=== PATIENT | male | born 1950 | race Caucasian/White ===

== ENCOUNTER 2019-10-03 00:19 | Outpatient (CLI) | payer MEDICARE, SELFPAY ==
[2019-10-03 18:39] LABS: SARS-CoV-2 RNA PCR Negative
== END 2019-10-03 00:20 | disposition home or self-care (01) ==
LOC: ANHCOVIDDT 00:20
PROVIDERS: Visit Provider Internal Medicine Gastroenterology
DX: Z01.818 Encounter for other preprocedural examination (principal); Z11.59 Encounter for screening for other viral diseases
CPT/HCPCS: 87635; C9803; U0003

== ENCOUNTER 2019-10-05 00:44 | Day surgery (SDC) | payer MEDICARE, SELFPAY ==
[2019-10-02 09:32] VITALS: BMI 49.6
[2019-10-05 06:51] VITALS: BP 129/72; PULSE 77; RESP 16; TEMP 36.9; O2SAT 94
[2019-10-05] MEDS: LACTATED RINGERS 1,000 ML 150 ML IV CONT (07:17)
[2019-10-05 07:19] LABS: Glucose Point of Care 160 (65-105)
--- NOTE | 2019-10-05 07:51 | WPDGIPROGNO ---
Subjective Date/time seen: 10/05/19 07:51 Objective Data Vital Signs Vital Signs: Vital Signs - 24 hr 10/05/19 06:51 Temperature 36.9 C Pulse Rate 77 Respiratory Rate 16 Blood Pressure 129/72 Pulse Oximetry 94 Meds/Results Medications: Active Medications Generic Name Dose Route Start Last Admin Trade Name Freq PRN Reason Stop Dose Admin Lactated Ringer's 1,000 mls @ 150 mls/hr 10/04/19 13:05 10/05/19 07:17 Lr - Lactated Ringers Iv IV CONT 150 mls/hr .[id number] BRENT Administration Lidocaine HCl 0.3 ml 10/04/19 13:05 Xylocaine 2% Local Inj INTRADERM ONCE PRN to numb area Labs Labs: Laboratory Results - last 24 hr 10/05/19 07:08 POC Capillary Glucose 160 H
--- NOTE | 2019-10-05 07:52 | PM.IMHP ---
H&P: HPI History of Present Illness Chief complaint: Other Fecal Abnormalities Narrative: Reason for visit colonoscopy. Is a very pleasant gentleman seen in consultation at the request of the primary physician. Patient examined . Impression: Positive stool base DNA test. History of colon polyps. Morbid obesity. Atrial fibrillation status post pacemaker placement. HTN. HLD. DM. Neuropathy. Recommendation: This very pleasant gentleman's being evaluated for a positive stool base DNA test. Patient has remote history of colon polyps. He was having complaints of occasional constipation. Patient's GI review systems unremarkable. Follow-up patient does complain occasional shortness of breath, dyspnea is urgent and wheezing. He has. Cc is the lower extremities. General: very pleasant patient in no acute distress. HEENT: Head was normocephalic sclerae is clear mouth without masses neck was supple. Heart: Rate rhythm regular without S3 or S4. Lungs: CTA. Abdomen: Soft with no guarding or rigidity. Bowel sounds were active. Neurologic: Cranial nerves 2 through 12 intact. No focal defects. No clonus. Musculoskeletal system: Revealed no joint tenderness or swelling no muscle atrophy. Extremities: Reveal no significant edema. Skin: Warm and dry with normal turgor. Mental status: intact. Patient is alert and oriented. Review of Systems Review of Systems: All systems reviewed & are unremarkable except as noted in HPI and below PMFSH Past Medical History Medical History (Updated 10/05/19 @ 07:52 by Gab Saab MD) CAD (coronary artery disease) Diabetes Hyperlipidemia Hypertension Pacemaker Super obesity Meds Home Medications and Allergies Home Medications Medication Instructions Recorded Confirmed Type albuterol sulfate [ProAir 1 inh INHALATION PRN PRN 10/02/19 10/02/19 History RespiClick] furosemide 40 mg PO DAILY 10/02/19 10/02/19 History glimepiride 4 mg PO DAILY 10/02/19 10/02/19 History lisinopril 10 mg PO DAILY 10/02/19 10/02/19 History rivaroxaban [Xarelto] 20 mg PO HS 10/02/19 10/05/19 History rosuvastatin 10 mg PO DAILY 10/02/19 10/02/19 History sitagliptin-metformin [Janumet] 1 tablet PO BID 10/02/19 10/02/19 History spironolactone 50 mg PO DAILY 10/02/19 10/02/19 History clobetasol 1 applic TOPICAL DAILY 10/05/19 10/05/19 History Allergies Allergy/AdvReac Type Severity Reaction Status Date / Time clindamycin Allergy Intermediate Rash Verified 10/02/19 09:17 dabigatran etexilate Allergy Unknown Unknown Verified 10/02/19 09:17 acetaminophen [From Percocet] Allergy Rash Verified 10/05/19 07:02 doxycycline Allergy Rash Verified 10/05/19 07:02 meperidine [From Demerol] Allergy Rash Verified 10/05/19 06:57 neomycin Allergy Rash Verified 10/05/19 07:02 oxycodone [From Percocet] Allergy Rash Verified 10/05/19 07:02 polymyxin B Allergy Rash Verified 10/05/19 07:02 OXYCODONE HCL Allergy Intermediate RASH Uncoded 10/02/19 09:17 Vital Signs Vital Signs - 24 hr 10/05/19 06:51 Temperature 36.9 C Pulse Rate 77 Respiratory Rate 16 Blood Pressure 129/72 Pulse Oximetry 94
--- NOTE | 2019-10-05 07:52 | WPDANESEPPF ---
Anes - Initial Pre Proc Eval Procedure: Operation Date: 10/05/19 08:00 Proposed Procedures p Colonoscopy - Chip Garg DO Date/Time: 10/05/19 07:52 Surgeon: Chip Garg DO Pre Op Diagnosis: Other Fecal Abnormalities Patient Data Age: 69 Gender: M Height: 6 ft 3 in Weight: 185.8 kg Last Vital Signs Temp 98.5 F 10/05/19 06:51 Pulse 77 10/05/19 06:51 Resp 16 10/05/19 06:51 BP 129/72 10/05/19 06:51 Pulse Ox 94 10/05/19 06:51 Allergies Allergy/AdvReac Type Severity Reaction Status Date / Time clindamycin Allergy Intermediate Rash Verified 10/02/19 09:17 dabigatran etexilate Allergy Unknown Unknown Verified 10/02/19 09:17 acetaminophen [From Percocet] Allergy Rash Verified 10/05/19 07:02 doxycycline Allergy Rash Verified 10/05/19 07:02 meperidine [From Demerol] Allergy Rash Verified 10/05/19 06:57 neomycin Allergy Rash Verified 10/05/19 07:02 oxycodone [From Percocet] Allergy Rash Verified 10/05/19 07:02 polymyxin B Allergy Rash Verified 10/05/19 07:02 OXYCODONE HCL Allergy Intermediate RASH Uncoded 10/02/19 09:17 Home Medications Medication Instructions Recorded Confirmed Type albuterol sulfate [ProAir 1 inh INHALATION PRN PRN 10/02/19 10/02/19 History RespiClick] furosemide 40 mg PO DAILY 10/02/19 10/02/19 History glimepiride 4 mg PO DAILY 10/02/19 10/02/19 History lisinopril 10 mg PO DAILY 10/02/19 10/02/19 History rivaroxaban [Xarelto] 20 mg PO HS 10/02/19 10/05/19 History rosuvastatin 10 mg PO DAILY 10/02/19 10/02/19 History sitagliptin-metformin [Janumet] 1 tablet PO BID 10/02/19 10/02/19 History spironolactone 50 mg PO DAILY 10/02/19 10/02/19 History clobetasol 1 applic TOPICAL DAILY 10/05/19 10/05/19 History Laboratory Tests 10/05/19 07:08 POC Capillary Glucose 160 mg/dl H mg/dl (65-105) Patient hx anesthesia problems: none Family hx anesthesia problems: none PMFSH Past Medical History Medical History (Updated 10/05/19 @ 07:52 by Gab Saab MD) CAD (coronary artery disease) Diabetes Hyperlipidemia Hypertension Pacemaker Super obesity Anes - Eval Final PreProcedure Day of Procedure 10/05/19 07:52 Patient weight: super morbidly obese Heart: regular rate and rhythm Lungs: clear to auscultation Airway: Mallampati scale class III Neurological: alert and oriented Last oral intake: >/= 8 hours ASA classification: IV Emergent: no Anesthetic plan: proceed Anesthesia type and monitoring: general GIVS and standard monitoring Informed Consent: The patient's anesthetic plan and its attendant risks and benefits were discussed with the patient/family/POA. Questions were solicited and answers provided to the satisfaction of the patient/family/POA.
[2019-10-05 08:40] VITALS: BP 121/70; PULSE 76; RESP 22; O2SAT 96
--- NOTE | 2019-10-05 08:42 | SUR.OPER ---
RESOLUTION CLIP X4: LOT # [id number] X3, EXPIRATION 2022-06-04, LOT # [id number] X1, EXPIRATION 2022-06-05
[2019-10-05 08:50] VITALS: BP 112/64; PULSE 75; RESP 22; O2SAT 90
[2019-10-05 09:00] VITALS: BP 123/66; PULSE 82; RESP 20; O2SAT 92
== END 2019-10-05 09:19 | disposition home or self-care (01) ==
PROVIDERS: Visit Provider Internal Medicine Gastroenterology
PROC: 0DJD8ZZ Inspection of Lower Intestinal Tract, Via Natural or Artificial Opening Endoscopic (ICD-10-PCS; CPT 45378; principal; 2019-10-05 08:00)
DX: Z12.11 Encounter for screening for malignant neoplasm of colon (principal); R19.5 Other fecal abnormalities; D12.2 Benign neoplasm of ascending colon; D12.0 Benign neoplasm of cecum; I10 Essential (primary) hypertension; E78.5 Hyperlipidemia, unspecified; I25.10 Atherosclerotic heart disease of native coronary artery without angina pectoris; Z95.0 Presence of cardiac pacemaker; Z79.01 Long term (current) use of anticoagulants; E66.01 Morbid (severe) obesity due to excess calories; Z68.43 Body mass index [BMI] 50.0-59.9, adult
CPT/HCPCS: 45385; 88305; J2704; J7120

== ENCOUNTER 2019-10-13 10:09 | Observation (INO) | payer MEDICARE, SELFPAY ==
[2019-10-13] VITALS (9 sets, daily range): BP systolic 110–151; BP diastolic 64–99; PULSE 76–91; RESP 16–25; TEMP 35.8–36.8; O2SAT 93–100
--- NOTE | 2019-10-13 11:34 | ED.GIBLEED ---
HPI - GI Bleed General Chief complaint: GI Bleed Stated complaint: rectal bleeding after colonoscopy Time Seen by Provider: 10/13/19 11:16 Source: patient Mode of arrival: ambulatory Limitations: no limitations History of Present Illness HPI Narrative: This patient is a 69 year old male with history of afib, pacemaker on Xarelto who presents for evaluation of rectal bleeding s/p colonoscopy. Patient had a colonoscopy performed [address] Garg, and he states 3 polyps were removed at that time. He had restarted his Xarelto but he has not taken any since Wednesday night. Yesterday morning he states he noticed a small amount of blood when he wiped. Later in the day he noticed significantly more bright red blood and passing clots. This morning at 630 am he states he had urged to defecated and he passed a large clots. He has not had any more rectal bleeding since. He denies abdominal pain, chest pain, nausea or vomitng. Related Data Home Medications Medication Instructions Recorded Confirmed albuterol sulfate [ProAir 1 inh INHALATION PRN PRN 10/02/19 10/13/19 RespiClick] furosemide 40 mg PO DAILY 10/02/19 10/13/19 glimepiride 4 mg PO DAILY 10/02/19 10/13/19 lisinopril 10 mg PO DAILY 10/02/19 10/13/19 rivaroxaban [Xarelto] 20 mg PO HS 10/02/19 10/13/19 rosuvastatin 10 mg PO DAILY 10/02/19 10/13/19 sitagliptin-metformin [Janumet] 1 tablet PO BID 10/02/19 10/13/19 spironolactone 50 mg PO DAILY 10/02/19 10/13/19 clobetasol 1 applic TOPICAL DAILY 10/05/19 10/13/19 cholecalciferol (vitamin D3) 125 mcg PO DAILY 10/13/19 10/13/19 [Vitamin D3] vitamin B complex [B 1 tablet PO DAILY 10/13/19 10/13/19 Complex-Vitamin B12] Allergies Allergy/AdvReac Type Severity Reaction Status Date / Time clindamycin Allergy Intermediate Rash Verified 10/13/19 13:48 dabigatran etexilate Allergy Unknown Unknown Verified 10/13/19 13:48 acetaminophen [From Percocet] Allergy Rash Verified 10/13/19 13:48 doxycycline Allergy Rash Verified 10/13/19 13:48 meperidine [From Demerol] Allergy Rash Verified 10/13/19 13:48 neomycin Allergy Rash Verified 10/13/19 13:48 oxycodone [From Percocet] Allergy Rash Verified 10/13/19 13:48 polymyxin B Allergy Rash Verified 10/13/19 13:48 OXYCODONE HCL Allergy Intermediate RASH Uncoded 10/02/19 09:17 Review of Systems Review of Systems: All systems reviewed & are unremarkable except as noted in HPI and below Constitutional: Constitutional: Denies chills and Denies weakness ENT: Denies epistaxis Cardiovascular: Cardiovascular: Denies chest pain Respiratory: Respiratory: Reports dyspnea (chronic) Gastrointestinal: Gastrointestinal: Denies abdominal pain, Reports hematochezia, Denies nausea and Denies vomiting PMFSH Past Medical History Medical History (Updated 10/13/19 @ 20:00 by Chandrika Levy MD) Adenomatous colon polyp Ascending colon x3 on colonoscopy 10/05/2019. 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 Degenerative arthritis of knee Yhby-yv-yiln arthritis in both knees. Diabetic peripheral neuropathy Hyperlipidemia Hypertension Paroxysmal atrial fibrillation Status post cardiac ablation and permanent pacemaker insertion. Super obesity Tubulovillous adenoma Cecum on colonoscopy 10/05/2019. Type 2 diabetes mellitus Surgical History Surgical History (Updated 10/13/19 @ 17:18 by Britney Alanis PA-C) History of arthroscopic knee surgery History of cardiac radiofrequency ablation History of carpal tunnel release History of permanent cardiac pacemaker placement Family History Family History Mother Tuberculosis Kidney disease Father Lung cancer Heart attack Sibling Ovarian cancer Malignant neoplasm of prostate Lung cancer Social History Social History (Updated 10/13/19 @ 17:19 by Britney Alanis PA-C) Social History: Surrogate decision m
[2019-10-13 11:38] LABS: Basophils Percent Auto 0.3 % (0.2-1.2); Eosinophils Absolute Auto 0.1 K/mm3 (0-0.3); Eosinophils Percent Auto 0.7 % (0-4.4); Hematocrit 36.5 % (42.0-52.0); Hemoglobin 12.1 g/dL (14.0-18.0); Immature Granulocyte Absolute 0.07 K/mm3 (0.00-0.031); Immature Granulocyte Percent A 0.6 % (0-0.5); Lymphocytes Absolute Auto 1.79 K/mm3 (0.9-3.2); Lymphocytes Percent Auto 14.6 % (18.3-44.2); Mean Corpuscular HGB Conc 33.2 g/dl (32-36); Mean Corpuscular Hemoglobin 32.4 pg (26-34); Mean Corpuscular Volume 97.9 fl (80-100); Mean Platelet Volume 10.5 fl (7.4-10.4); Monocytes Absolute Auto 1.1 K/mm3 (0.1-0.6); Monocytes Percent Auto 8.6 % (2.6-8.5); Neutrophils Absolute Auto 9.3 K/mm3 (1.3-6.7); Neutrophils Percent Auto 75.2 % (45.5-73.1); Platelet Count Result 223 k/mm3 (150-375); Red Blood Count 3.73 M/mm3 (4.6-6.20); Red Cell Distribution Width 12.6 % (11.5-14.5); White Blood Count 12.3 K/mm3 (4.5-10.0)
[2019-10-13 11:48] LABS: INR 1.1; Prothrombin Time 14.3 Seconds (11.1-14.7)
[2019-10-13 11:49] LABS: Partial Thromboplastin Time 25.5 SECONDS (22.3-36.8)
[2019-10-13 11:52] LABS: Alanine Aminotransferase 18 U/L (4-50); Albumin Level 3.9 g/dL (3.5-5.1); Alkaline Phosphatase 50 U/L (38-126); Aspartate Amino Transferase 18 U/L (17-59); Bilirubin,Total 0.5 mg/dL (0.2-1.3); Blood Urea Nitrogen 13 mg/dL (9-20); Calcium 9.4 mg/dL (8.4-10.2); Carbon Dioxide 31 mmol/L (22-30); Chloride 98 mmol/L (98-107); Estimated CRCL calculation 145 ml/min; Estimated Glomerular Filt Rate > 60; Glucose 214 mg/dL (75-110); Potassium 4.2 mmol/L (3.4-5.0); Sodium 135 mmol/L (137-145)
[2019-10-13 13:23] LABS: Hemoglobin 11.8 g/dL (14.0-18.0)
--- NOTE | 2019-10-13 14:54 | ADMGEN ---
This patient, Kimani Leos, was admitted to Medical Room 348-01. Patient/family oriented to hospital policies and general routines including ID bracelet, bed and alarms, visiting hours, pain management, procedures, bathroom and other care routines, personal items, smoking policy, room service/diet, and visiting hours. Valuables list has been completed. Information on how to activate the Rapid Response Team has been discussed. Patient/Family are encouraged to report perceived risks to care and to ask questions if they do not understand what they are told or what they should do.
--- NOTE | 2019-10-13 15:59 | WPDGICN ---
GI Consult Note Consult date/time: 10/13/19 15:59 HPI: This very pleasant gentleman seen in consultation regarding GI bleeding. 69-year-old white male seen in consultation request of the hospitalist with the patient's permission. The patient examined and chart review. Impression: Lower GI bleeding probably secondary to post polypectomy syndrome. Anemia secondary to above. Coagulopathy secondary to Pradaxa. Adenomatous colon polyps. Morbid obesity. Atrial fibrillation status post pacemaker placement. HTN. HLD. DM. Neuropathy. Recommendation: The patient has had no further bleeding since 0 600 this a.m.. I would keep the patient on clear liquids continue to observe. If the patient develops significant bleeding would re-prepped for a repeat colonoscopy for possible therapeutics. Hopefully, this will not be necessary. Follow hemoglobin hematocrit. Hold anticoagulation for 4 to 5 days. History: This very pleasant gentleman is well known to myself. Patient was found to have a positive stool base DNA test. He also had a history of polyps. He underwent elective colonoscopy and was found to have several polyps. The the preparation was somewhat poor. The largest polyp had hemostatic clips placed. Patient was doing fine until approximately the day prior to admission he began having painless rectal bleeding. He denied any nausea, vomiting or hematemesis. He denied any abdominal pain indigestion, dysphagia or odynophagia. Patient presented in the emergency room, but has not had any bleeding since 0 600. The patient is presently comfortable and resting. He wants to go home. Physical examination: General: very pleasant patient in no acute distress. HEENT: Head was normocephalic sclerae is clear mouth without masses neck was supple. Heart: Rate rhythm regular without S3 or S4. Lungs: CTA. Abdomen: Soft with no guarding or rigidity. Bowel sounds were active. The abdomen is obese. Neurologic: Cranial nerves 2 through 12 intact. No focal defects. No clonus. Musculoskeletal system: Revealed no joint tenderness or swelling no muscle atrophy. Extremities: Edema. Skin: Warm and dry with normal turgor. Mental status: intact. Patient is alert and oriented. One and thank you for allowing me to participate in the care of this was the patient. The give any further service to you please NSAIDs to contact me. Review of Systems Review of Systems: All systems reviewed & are unremarkable except as noted in HPI and below [facility] Past Medical History Medical History (Updated 10/13/19 @ 16:06 by Chip Garg DO) Adenomatous colon polyp CAD (coronary artery disease) Diabetes Hyperlipidemia Hypertension Pacemaker Super obesity Surgical History Surgical History (Updated 10/13/19 @ 16:05 by Chip Garg DO) H/O colonoscopy Family History Family History Mother Tuberculosis Kidney disease Father Lung cancer Heart attack Sibling Ovarian cancer Malignant neoplasm of prostate Lung cancer Social History Social History Smoking status: Never smoker Alcohol intake: never Substance use: never Substance use type: does not use Gender identity (if verbalized by the patient): Male Sexual Orientation (if Verbalized by the Patient): Straight or Heterosexual Spiritual care concerns: No Meds Home Medications and Allergies Home Medications Medication Instructions Recorded Confirmed Type albuterol sulfate [ProAir 1 inh INHALATION PRN PRN 10/02/19 10/13/19 History RespiClick] furosemide 40 mg PO DAILY 10/02/19 10/13/19 History glimepiride 4 mg PO DAILY 10/02/19 10/13/19 History lisinopril 10 mg PO DAILY 10/02/19 10/13/19 History rivaroxaban [Xarelto] 20 mg PO HS 10/02/19 10/13/19 History rosuvastatin 10 mg PO DAILY 10/02/19 10/13/19 History sitagliptin-metformin [Raymondt
--- NOTE | 2019-10-13 16:30 | PM.IMHP ---
H&P: HPI History of Present Illness Chief complaint: Rectal bleeding. Narrative: Kimani Leos is a very pleasant 69-year-old male with a medical history significant for paroxysmal atrial fibrillation post cardiac ablation and permanent pacemaker insertion on long-term Xarelto, type 2 diabetes mellitus, hypertension, and hyperlipidemia who presented to the emergency department earlier this morning via private vehicle from home for evaluation of rectal bleeding. He had a colonoscopy on October 05, [address] Garg with polypectomy x4 (pedunculated tubulovillous adenoma of the cecum, 3 adenomatous polyps from the ascending colon). His Xarelto was on hold prior to the colonoscopy and it was resumed last Wednesday. Yesterday morning he admits to straining to have a bowel movement and at that time he noticed a small amount of bright red blood on the toilet tissue. A couple of hours later he developed cramping in the lower abdomen and he notes passing a large amount of bright red blood every 2 to 3 hours thereafter, admixed with dark clots. He did not take his Xarelto yesterday or today due to the rectal bleeding, and thought it would be best to come in for evaluation given continued blood in his stool this morning. He has not had a bowel movement since 07:00 this morning, but he does report tenesmus however has only been passing flatness. He currently has no complaints and specifically denies abdominal pain, epigastric pain, nausea, and vomiting. He denies lightheadedness and dizziness. No palpitations or shortness of breath. Review of Systems Review of Systems: Narrative: Twelve systems were reviewed with pertinent positives and negatives as per HPI. No fever, chills, or sweats. No recent cold or flu symptoms. No chest pain or shortness of breath. He does have chronic dyspnea on exertion which he attributes to being out of shape an overweight. He has yrgo-fb-[id number] arthritis of both knees, but has been told he asked lose 100 pounds in order to have his knees replaced. He has chronic lower leg edema for which he wears compression socks. Except as documented, all other systems were reviewed and are negative. [facility] [place] Past Medical History Medical History (Updated 10/13/19 @ 17:22 by Britney Alanis PA-C) Adenomatous colon polyp Ascending colon x3 on colonoscopy 10/05/2019. 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 Degenerative arthritis of knee Rbpi-bs-ojub arthritis in both knees. Diabetic peripheral neuropathy Hyperlipidemia Hypertension Paroxysmal atrial fibrillation Status post cardiac ablation and permanent pacemaker insertion. Super obesity Tubulovillous adenoma Cecum on colonoscopy 10/05/2019. Type 2 diabetes mellitus Surgical History Surgical History (Updated 10/13/19 @ 17:18 by Britney Alanis PA-C) History of arthroscopic knee surgery History of cardiac radiofrequency ablation History of carpal tunnel release History of permanent cardiac pacemaker placement Family History Family History Mother Tuberculosis Kidney disease Father Lung cancer Heart attack Sibling Ovarian cancer Malignant neoplasm of prostate Lung cancer Social History Social History (Updated 10/13/19 @ 17:19 by Britney Alanis PA-C) Social History: Surrogate decision maker: Colleen Leos, . Code status: Full code. Smoking status: Never smoker Alcohol intake: never Substance use: never Additional living arrangements comments: Patient lives with his in [place]. They have 3 [place] terriers. Additional occupation/education comments: Technically retired however he still works in [employer]. Sexual Orientation (if Verbalized by the Patient): Straight or Heterosexual Spiritual care concerns: No Meds Home Medications and Allergies Home Medications Medication Instructions Recorded Confirmed
[2019-10-13 17:04] LABS: Glucose Point of Care 177 (65-105)
[2019-10-13 17:11] LABS: Hematocrit 33.7 % (42.0-52.0); Mean Corpuscular HGB Conc 32.6 g/dl (32-36); Mean Corpuscular Hemoglobin 31.6 pg (26-34); Mean Corpuscular Volume 96.8 fl (80-100); Mean Platelet Volume 10.4 fl (7.4-10.4); Platelet Count Result 220 k/mm3 (150-375); Red Blood Count 3.48 M/mm3 (4.6-6.20); Red Cell Distribution Width 12.5 % (11.5-14.5); White Blood Count 10.6 K/mm3 (4.5-10.0)
[2019-10-13 17:22] LABS: Cholesterol 132 mg/dL (0-200); HDL Direct 31 mg/dL; Triglycerides 165 mg/dL (<150)
[2019-10-13 17:23] LABS: INR 1.2; Prothrombin Time 14.7 Seconds (11.1-14.7)
[2019-10-13 17:27] LABS: Alanine Aminotransferase 17 U/L (4-50); Albumin Level 3.6 g/dL (3.5-5.1); Alkaline Phosphatase 43 U/L (38-126); Aspartate Amino Transferase 19 U/L (17-59); Bilirubin,Total 0.5 mg/dL (0.2-1.3); Blood Urea Nitrogen 28 mg/dL (9-20); Carbon Dioxide 30 mmol/L (22-30); Chloride 98 mmol/L (98-107); Estimated CRCL calculation 145 ml/min; Estimated Glomerular Filt Rate > 60; Glucose 178 mg/dL (75-110); Magnesium 1.9 mg/dL (1.6-2.3); Potassium 4.1 mmol/L (3.4-5.0); Sodium 135 mmol/L (137-145)
[2019-10-13 17:34] LABS: LDL Cholesterol Direct 77 mg/dL
[2019-10-13 18:01] LABS: Free T4 Free Thyroxine 0.95 ng/mL (0.78-2.19)
[2019-10-13 22:22] LABS: Glucose Point of Care 184 (65-105)
[2019-10-14 01:32] LABS: Hematocrit 34.8 % (42.0-52.0); Hemoglobin 11.5 g/dL (14.0-18.0)
[2019-10-14 06:00] VITALS: BP 110/56; PULSE 79; RESP 18; TEMP 36.2; O2SAT 100
[2019-10-14 06:52] LABS: Hematocrit 35.9 % (42.0-52.0); Hemoglobin 11.5 g/dL (14.0-18.0)
[2019-10-14 07:48] LABS: Glucose Point of Care 220 (65-105)
[2019-10-14] MEDS: ROSUVASTATIN 10 MG TABLET PO (08:00)
[2019-10-14] MEDS: CHOLECALCIFEROL 1,000 UNIT TABLET 5000 UNITS PO (08:00)
[2019-10-14] MEDS: lisinopriL 10 MG TABLET PO (08:00)
[2019-10-14] MEDS: VITAMIN B COMPLEX CAPSULE 1 CAP PO (08:00)
[2019-10-14] MEDS: GLIMEPIRIDE 2 MG TABLET 4 MG PO (08:00)
[2019-10-14] MEDS: SPIRONOLACTONE 50 MG TABLET PO (08:00)
[2019-10-14] MEDS: INSULIN ASPART (*BKC) 100 UNITS/ML SUB-Q (08:01)
[2019-10-14] MEDS: FUROSEMIDE 40 MG TABLET PO (08:01)
[2019-10-14 11:27] LABS: Glucose Point of Care 199 (65-105)
--- NOTE | 2019-10-14 12:15 | PM.DS ---
DS: Admitting Diagnosis Admitting Diagnosis Admitting Diagnosis: Gastrointestinal hemorrhage, unspecified DS: Discharge Diagnosis Discharge Diagnosis (1) Lower GI bleeding: Code(s): K92.2 - Gastrointestinal hemorrhage, unspecified Status: Acute Assessment and Plan: Four polyps were removed on recent colonoscopy, which also noted internal hemorrhoidal tissue. May be related to recent polypectomy and/or straining to have a bowel movement The patient denies any more bright red blood in his stool at this time. This morning he did have a large stool that was dark in color. H&H has been completely stable, on arrival hemoglobin was 12.1 and this morning it was 11.5. Dr. Garg GI specialist who performed the patient's colonoscopy evaluated the patient yesterday and recommended continuing to observe the patient and slowly advance his diet as tolerated. He stated if significant bleeding continues he would repeat the colonoscopy. I called Dr. Garg about the patient today who recommend checking the patient's H&H again this afternoon and if it still remains stable and the patient is adamant about being discharged that he can follow-up in the office next week. Patient H&H was checked at 1:30 p.m. and was stable at 11.1/34.7%. Patient at this time is stable, asymptomatic, and would like to be discharged home. Informed the patient he needs to hold his Xarelto for 5 more days, and restarted on 10/20/2019. Return to ER warnings given. The patient understands and agrees with the plan all questions answered. (2) Anemia: Code(s): D64.9 - Anemia, unspecified Status: Acute Assessment and Plan: Presumably acute blood loss anemia from rectal bleeding as detailed above. (3) Current use of nursing home anticoagulation: Code(s): Z79.01 - longterm (current) use of anticoagulants Status: Acute Assessment and Plan: He is on Xarelto, which is currently on hold in light of rectal bleeding. (4) Paroxysmal atrial fibrillation: Code(s): I48.0 - Paroxysmal atrial fibrillation Status: Acute Assessment and Plan: Status post cardiac ablation and permanent pacemaker insertion. He is still on Xarelto for stroke prophylaxis, which is currently on hold. (5) Type 2 diabetes mellitus: Code(s): E11.9 - Type 2 diabetes mellitus without complications Status: Acute Assessment and Plan: Oral agents will be reviewed and resumed as appropriate. (6) Hypertension: Code(s): I10 - Essential (primary) hypertension Status: Acute Assessment and Plan: Blood pressures were reviewed and they are well controlled. Continue his home medications. DS: Summary Hospital Course Reason for hospitalization: Patient is a 69-year-old man with a history of atrial fibrillation, and on chronic anticoagulation, who recently underwent a colonoscopy by Dr. Garg and had 4 colon polyps removed and was found to have an internal hemorrhoid, who presented to the emergency room with bright red blood in his stool. Patient had his colonoscopy on 10/05/2019, and was told to restart his Xarelto on 10/07/2019. Then on 10/11/2019, he was straining to have a bowel movement and when he wiped he noticed some bright red blood present on the toilet paper. He woke up on 10/12/2019 and reported having multiple bowel movements with a large amount of bright red blood present. The patient held his Xarelto and decided to come to the emergency room. Patient's initial vitals showed temperature of 97.7?, blood pressure 110/78, heart rate 80, respiratory rate 18, oxygen saturation 96% on room air
[2019-10-14 13:39] LABS: Basophils Percent Auto 0.3 % (0.2-1.2); Eosinophils Absolute Auto 0.1 K/mm3 (0-0.3); Eosinophils Percent Auto 1.1 % (0-4.4); Hematocrit 34.7 % (42.0-52.0); Hemoglobin 11.1 g/dL (14.0-18.0); Immature Granulocyte Absolute 0.07 K/mm3 (0.00-0.031); Immature Granulocyte Percent A 0.7 % (0-0.5); Lymphocytes Absolute Auto 1.66 K/mm3 (0.9-3.2); Lymphocytes Percent Auto 16.4 % (18.3-44.2); Mean Corpuscular Hemoglobin 31.6 pg (26-34); Mean Corpuscular Volume 98.9 fl (80-100); Mean Platelet Volume 10.6 fl (7.4-10.4); Monocytes Absolute Auto 1.1 K/mm3 (0.1-0.6); Monocytes Percent Auto 10.7 % (2.6-8.5); Neutrophils Absolute Auto 7.2 K/mm3 (1.3-6.7); Neutrophils Percent Auto 70.8 % (45.5-73.1); Platelet Count Result 234 k/mm3 (150-375); Red Blood Count 3.51 M/mm3 (4.6-6.20); Red Cell Distribution Width 12.8 % (11.5-14.5); White Blood Count 10.1 K/mm3 (4.5-10.0)
[2019-10-14 14:00] VITALS: BP 103/49; PULSE 72; RESP 18; TEMP 36.2; O2SAT 99
== END 2019-10-14 15:05 | disposition home or self-care (01) ==
LOC: ANHED 12:55 → ANH3MED 13:12
PROVIDERS: Internal Medicine Gastroenterology; Admitting Provider Family Medicine; Emergency Provider General Practice; PCP Internal Medicine; Visit Provider Physician Assistant
DX: K92.2 Gastrointestinal hemorrhage, unspecified (principal); Z86.010 Personal history of colon polyps; K64.8 Other hemorrhoids; D64.9 Anemia, unspecified; I48.0 Paroxysmal atrial fibrillation; E11.42 Type 2 diabetes mellitus with diabetic polyneuropathy; I10 Essential (primary) hypertension; E78.5 Hyperlipidemia, unspecified; I25.10 Atherosclerotic heart disease of native coronary artery without angina pectoris; E66.01 Morbid (severe) obesity due to excess calories; M17.0 Bilateral primary osteoarthritis of knee; Z79.01 Long term (current) use of anticoagulants; Z95.0 Presence of cardiac pacemaker; Z98.890 Other specified postprocedural states
CPT/HCPCS: 36415; 80048; 80053; 80061; 80076; 83735; 84100; 84439; 85014; 85018; 85025; 85027; 85610; 85730; 86850; 86900; 86901; 99285; A9270; G0378; J1815

== ENCOUNTER 2020-04-03 10:39 | Inpatient (IN) | payer MEDICARE, SELFPAY ==
[2020-04-03] VITALS (48 sets, daily range): BP systolic 65–111; BP diastolic 33–70; PULSE 69–850; RESP 14–31; TEMP 35.9–36.8; O2SAT 94–100; BMI 54.0
--- NOTE | ~2020-04-03 | XR_ITS ---
EXAMINATION: XR chest 1V portable DATE: 04/11/2020 06:12 INDICATION: Ventilator TECHNIQUE: frontal view of the chest was obtained. COMPARISON: Chest radiograph dated 04/10/2020 FINDINGS: Endotracheal tube tip 4.0 cm above the russell. Nasogastric tube extends below the left hemidiaphragm with distal tip collimated off the study. Right internal jugular central venous catheter with distal tip at the right brachiocephalic vein. Unchanged elevation of the right hemidiaphragm. Unchanged opacities at the right lower lung zone cons istent with atelectasis and/or pneumonia. Possible very small bilateral pleural effusions. No pneumot horax. Cardiomegaly. Median sternotomy wires and mediastinal surgical clips are seen, likely from flynn or coronary artery bypass grafting. IMPRESSION: 1. Opacities in right lower lung zone along side the elevated right hemidiaphragm most likely atelect asis although differential includes pneumonia. 2. Likely very small bilateral pleural effusions. 3. Cardiomegaly. Reviewed, dictated and finalized at location A. TOR INTERNAL IMPRESSION: 1. Opacities in right lower lung zone along side the elevated right hemidiaphra gm most likely atelectasis although differential includes pneumonia. 2. Likely very small bilateral pleural effusions. 3. Cardiomegaly.
--- NOTE | ~2020-04-03 | US_ITS ---
EXAMINATION: US abdomen duplex complete DATE: 04/04/2020 09:41 INDICATION: Abdominal pain. TECHNIQUE: Multiple ultrasound images of the abdomen were obtained. COMPARISON: CT abdomen and pelvis 04/03/2020 FINDINGS: The abdominal arteries are not visible due to morbid obesity. IMPRESSION: 1. Abnormal arteries not visible. Yesterday's CT demonstrates no significant stenosis of celiac axis, superior mesenteric artery, or inferior mesenteric artery. Reviewed, dictated and finalized at location A. CLERK IMPRESSION: 1. Abnormal arteries not visible. Yesterday's CT demonstrates no significant st enosis of celiac axis, superior mesenteric artery, or inferior mesenteric arter y.
--- NOTE | ~2020-04-03 | XR_ITS ---
EXAMINATION: XR chest 1V portable DATE: 04/12/2020 06:08 INDICATION: Respiratory failure. TECHNIQUE: frontal view of the chest was obtained. COMPARISON: Chest radiograph dated 04/11/2020 FINDINGS: Endotracheal tube tip 6.4 cm above the russell. Nasogastric tube extends below the left hemidiaphragm with distal tip collimated off the study. Right internal jugular central venous catheter with distal tip in the right brachiocephalic vein. Chronic elevation of the right hemidiaphragm. Hazy airspace opacities at both lower lung zones with b lunting at the costophrenic angles consistent with small bilateral pleural effusions. Unchanged more dense patchy and linear airspace opacity in the right lower lung zone consistent with atelectasis wit h differential including pneumonia. No pneumothorax. Cardiomegaly. Single lead cardiac pacemaker with distal tip collimated beyond the inferior margin of the [id number]. IMPRESSION: 1. Unchanged opacity right lower lung zone along side the elevated right hemidiaphragm most likely at electasis although differential includes pneumonia. 2. Small bilateral pleural effusions. 3. Cardiomegaly. 4. Endotracheal tube tip 6.4 cm above the russell. Consider advancement by 4 cm. Reviewed, dictated and finalized at location A. CONSULTANT IMPRESSION: 1. Unchanged opacity right lower lung zone along side the elevated right hemidi aphragm most likely atelectasis although differential includes pneumonia. 2. Small bilateral pleural effusions. 3. Cardiomegaly. 4. Endotracheal tube tip 6.4 cm above the russell. Consider advancement by 4 cm.
--- NOTE | ~2020-04-03 | XR_ITS ---
EXAMINATION: XR abdomen NG/feed tube rechec INDICATION: OG placement TECHNIQUE: Portable AP KUB-NG at 1857 hours COMPARISON: 04/10/2020 FINDINGS: The enteric tube is in the stomach. Cardiomegaly is noted. IMPRESSION: 1. Enteric tube in the stomach. Reviewed, dictated and finalized at location A. TOLOGIC TECHNICIAN TECHNICAL
--- NOTE | ~2020-04-03 | XR_ITS ---
XR chest 1V portable 04/06/2020 05:43 Indication: Respiratory failure Procedure: AP portable chest Comparison: Comparison to multiple prior studies sequentially, with oldest reviewed study dated 05/2010. Findings: Endotracheal tube tip 4.8 cm above the russlel. Right IJ central line tip in the SVC. Cardio megaly. Right perihilar atelectasis. Mild interstitial edema. Small left pleural effusion. Impression: 1: Cardiomegaly with mild interstitial edema. 2: Stable right perihilar atelectasis. Reviewed, dictated and finalized at location A. LE CUTTER Impression: 1: Cardiomegaly with mild interstitial edema. 2: Stable right perihilar atelectasis.
--- NOTE | ~2020-04-03 | XR_ITS ---
EXAMINATION: XR chest 1V portable DATE: 04/08/2020 05:43 INDICATION: Respiratory failure TECHNIQUE: frontal view of the chest was obtained. COMPARISON: Chest radiograph dated 04/07/2020 FINDINGS: Endotracheal tube tip 6.5 cm above the russell. Right internal jugular central venous catheter with di stal tip in the right brachiocephalic vein. Nasogastric tube to at least the distal esophagus with d istal tip collimated off the study. Single lead cardiac pacemaker which extends into the right atrium with the distal tip of the catheter along with the base of the heart also collimated below the infer ior margin of the [id number]. Cardiomegaly. Elevation of the right hemidiaphragm. Gradient of hazy airspace opacities in the bilateral mid and lo wer lung zones. Linear band of discoid atelectasis in the right midlung zone. No pneumothorax. IMPRESSION: 1. Endotracheal tube tip 6.5 cm above the russell. Consider advancement by 3-4 cm. 2. Opacities in the bilateral mid and lower lung zones suggesting small bilateral pleural effusions w ith associated atelectasis and/or pneumonia. Reviewed, dictated and finalized at location A. MACY GRADUATE INTERN IMPRESSION: 1. Endotracheal tube tip 6.5 cm above the russell. Consider advancement by 3-4 c m. 2. Opacities in the bilateral mid and lower lung zones suggesting small bilater al pleural effusions with associated atelectasis and/or pneumonia.
--- NOTE | ~2020-04-03 | XR_ITS ---
EXAMINATION: XR chest 1V portable DATE: 04/09/2020 06:06 INDICATION: Respiratory failure TECHNIQUE: frontal view of the chest was obtained. COMPARISON: Chest radiograph dated 04/08/2020 FINDINGS: Endotracheal tube tip 4.4 cm above the russell. Nasogastric tube extends below the left hemidiaphragm with distal tip collimated off the study. Right internal jugular central venous catheter with distal tip at the brachiocephalic vein. Elevation of the right hemidiaphragm. Decrease in the prior diffuse hazy airspace opacities. Persiste nt dense opacities at the bilateral lung bases with blunting at the costophrenic angles consistent wi th decreasing small bilateral pleural effusions and associated basilar atelectasis and/or pneumonia. When you're discoid atelectasis/scarring in the right midlung zone. Cardiomegaly. IMPRESSION: 1. Decreasing small bilateral pleural effusions. 2. Opacities in the bilateral lower lung zones consistent with decreasing small bilateral pleural eff usions with associated atelectasis and/or pneumonia. Reviewed, dictated and finalized at location A. GLASS DESIGNER IMPRESSION: 1. Decreasing small bilateral pleural effusions. 2. Opacities in the bilateral lower lung zones consistent with decreasing small bilateral pleural effusions with associated atelectasis and/or pneumonia.
--- NOTE | ~2020-04-03 | XR_ITS ---
EXAMINATION: XR abdomen NG/feed tube insert DATE: 04/06/2020 16:15 INDICATION: Orogastric tube placement TECHNIQUE: A supine view of the abdomen and lower chest was obtained for evaluation of feeding tube placement. COMPARISON: None. FINDINGS: Nasogastric tube tip in the body of the stomach. No dilated bowel in the visualized upper abdomen. Op acities at the bilateral lower lung zones suggesting small bilateral pleural effusions with associate d basilar atelectasis and/or pneumonia. Cardiomegaly. IMPRESSION: 1. Orogastric tube tip in the stomach. 2. Small bilateral pleural effusions with associated basilar atelectasis and/or pneumonia. 3. Cardiomegaly. Reviewed, dictated and finalized at location A. STRIAL LABORER
--- NOTE | ~2020-04-03 | XR_ITS ---
EXAMINATION: XR abdomen NG/feed tube insert EXAM DATE: 04/04/2020 06:12 INDICATION: OG tube insertion . TECHNIQUE: Frontal projection(s) of the abdomen for interpretation. There is no prior study for chip fry. FINDINGS: Feeding tube tip and side-port project over expected location of the stomach, adequate. Th ere is bibasilar subsegmental atelectasis. Cardiac pacemaker lead. Nonobstructive upper abdominal bow el gas pattern. IMPRESSION: Feeding tube in position. Reviewed, dictated and finalized at location A. MOLDER IMPRESSION: Feeding tube in position.
--- NOTE | ~2020-04-03 | XR_ITS ---
XR chest 1V portable 04/03/2020 12:12 Indication: Syncope Procedure: AP portable chest Comparison: 08/31/2010 Findings: Elevated right diaphragm which appears chronic. There is chronic linear infiltrate at the r ight mid lung. No acute focal pneumonia, edema or effusion. Cardiomegaly. Pacemaker leads stable. No pneumothorax. Impression: 1: Chronic atelectasis/scarring right mid lung zone. 2: Chronic elevation of the right diaphragm, suspicious for phrenic nerve paralysis. 3: Cardiomegaly. Reviewed, dictated and finalized at location B. RECORDING MACHINE OPERATOR Impression: 1: Chronic atelectasis/scarring right mid lung zone. 2: Chronic elevation of the right diaphragm, suspicious for phrenic nerve para lysis. 3: Cardiomegaly.
--- NOTE | ~2020-04-03 | XR_ITS ---
XR chest 1V portable 04/07/2020 06:11 Indication: Respiratory failure Procedure: AP portable chest Comparison: Comparison to multiple prior studies sequentially, with oldest reviewed study dated 06/2019. Findings: Endotracheal tube tip 3.4 cm above the russell. Diffuse bilateral airspace disease. Right IJ central line tip in the SVC. Right perihilar atelectasis/scarring unchanged. Possible layering effus ions. No pneumothorax. Impression: 1: Persistent diffuse bilateral airspace disease which may represent edema or pneumonia. No significa nt change. Reviewed, dictated and finalized at location A. NALYTICS TEAM LEAD Impression: 1: Persistent diffuse bilateral airspace disease which may represent edema or p neumonia. No significant change.
--- NOTE | ~2020-04-03 | XR_ITS ---
EXAMINATION: XR foot RT min 3V EXAM DATE: 04/03/2020 13:23 INDICATION: Right-sided plantar wound. TECHNIQUE: Right foot dorsoplantar, lateral and oblique projections obtained and reviewed. There is no prior study for comparison. FINDINGS: Right metatarsal bones unremarkable. There are no bony erosions identified. There is smal l posterior and inferior calcaneal spurs. The toes are extended at the MCP joints. There are no acute fractures identified. There is mild scattered polyarticular primary osteoarthritis. IMPRESSION: Chronic right foot findings. Reviewed, dictated and finalized at location A. EED OIL ORDER FILLER
--- NOTE | ~2020-04-03 | CT_ITS ---
EXAMINATION: CT abdomen pelvis w con DATE: 04/03/2020 12:17 INDICATION: Abdominal pain. TECHNIQUE: Computed tomography (CT) of the abdomen and pelvis was performed with 100 mL Omnipaque 350 intravenous contrast. Automated exposure control and iterative reconstruction technique were employe d. The dose-length product was 2505.86 mGy-cm. COMPARISON: None. FINDINGS: The visualized portions of the lung bases demonstrate mild atelectasis. Right lung herniate s between two of the ribs. Calcified right lung nodules and calcified bilateral hilar lymph nodes are consistent with old granulomatous disease. No pleural effusion. There is left atrial enlargement of the heart. There are coronary artery calcifications. No pericardial effusion. There is a pacer wire i n right ventricle. The liver and spleen are normal. There are gallstones in the gallbladder, which is normal in size. The pancreas and adrenal glands are normal. There are cysts in the kidneys measuring up to 3.4 cm on the left. There is diverticulosis of the colon without evidence of diverticulitis. T he appendix is not visualized. There are endoscopy clips in the colon at the ileocecal valve. There a re no pathologically enlarged lymph nodes. There is no free intraperitoneal fluid. Portions of the ab dominal wall are excluded. There is subcutaneous fat stranding in inferior abdominal wall, consistent with inflammation versus edema. There is calcified chronic fat necrosis superficial to the sacrum an d coccyx. There is severe lumbar spondylosis. There are bridging endplate osteophytes at multiple lev els in the thoracic spine, consistent with diffuse idiopathic skeletal hyperostosis (DISH). IMPRESSION: 1. Cholelithiasis. No evidence of acute cholecystitis. Reviewed, dictated and finalized at location A. H ASSEMBLER OPERATOR
--- NOTE | ~2020-04-03 | XR_ITS ---
EXAMINATION: XR chest 1V portable DATE: 04/10/2020 06:24 INDICATION: COVID. Respiratory failure. TECHNIQUE: frontal view of the chest was obtained. COMPARISON: Chest radiograph dated 04/09/2020 FINDINGS: Endotracheal tube tip 4.4 cm above the russell. Nasogastric tube extends below the left hemidiaphragm with distal tip collimated off the study. Right internal jugular central venous catheter with distal tip at the right brachiocephalic vein. Elevation of the right hemidiaphragm. Oblique thin band of discoid atelectasis/scarring at the right midlung zone. Gradient of hazy airspace opacities at the lung bases with blunting of the costophrenic angles consistent with small bilateral pleural effusions and associated basilar atelectasis and/or p neumonia. No pneumothorax. Cardiomegaly. Single lead cardiac pacemaker with lead tip in the right silvio tricle. IMPRESSION: 1. Small bilateral pleural effusions with associated basilar atelectasis and/or pneumonia. 2. Cardiomegaly. Reviewed, dictated and finalized at location A. LITIES PAINTER
--- NOTE | ~2020-04-03 | XR_ITS ---
EXAMINATION: XR abdomen NG/feed tube rechec INDICATION: Assess nasogastric tube position TECHNIQUE: Portable AP KUB-NG at 2121 hours COMPARISON: 04/06/2020 FINDINGS: The nasogastric tube is followed as far as the stomach. Its tip is beyond the inferior mychal in of the radiograph. Cardiomegaly is noted. There are opacities of the visualized lung bases. IMPRESSION: 1. Nasogastric tube followed as far as the stomach. Reviewed, dictated and finalized at location A. DENCE LIFE DIRECTOR
--- NOTE | ~2020-04-03 | XR_ITS ---
EXAMINATION: XR foot RT 2V INDICATION: Right foot pain TECHNIQUE: Two views of the right foot are obtained. COMPARISON: 04/03/2020 FINDINGS: There is mild osteopenia at the base of the fifth metatarsal. Diffuse soft tissue swelling is present in the foot. There is mild osteoarthritis at the first metatarsophalangeal joint and in se veral interphalangeal joints. No fracture is identified. Dorsal and plantar calcaneal enthesophytes a re noted. There is calcified atherosclerosis. IMPRESSION: 1. Mild osteopenia at the base of the fifth metatarsal which could reflect osteomyelitis. 2. Diffuse soft tissue swelling. Reviewed, dictated and finalized at location A. RAL MANAGER ROAD PRODUCTION IMPRESSION: 1. Mild osteopenia at the base of the fifth metatarsal which could reflect oste omyelitis. 2. Diffuse soft tissue swelling.
--- NOTE | ~2020-04-03 | XR_ITS ---
EXAMINATION: XR chest 1V portable INDICATION: Endotracheal tube position assessment TECHNIQUE: Portable AP chest at 2116 hours COMPARISON: 0529 hours FINDINGS: The endotracheal tube ends approximately 8.8 cm above the russell. The lung volumes are low. The nasogastric tube is followed as far as the stomach. Its tip is beyond the inferior margin of the radiograph. A right internal jugular central venous catheter is seen with its tip in the right brach iocephalic vein. There is unchanged elevation of the right hemidiaphragm. Stable cardiomegaly is note d. Small pleural effusions are unchanged. There is no pneumothorax. Bibasilar airspace opacities are stable. A single lead pacemaker of the left chest wall ends with its lead in the right ventricle. IMPRESSION: 1. Endotracheal tube ending approximately 8.8 cm above the russell, otherwise no significant change. Reviewed, dictated and finalized at location A. EAR PHYSICIST
--- NOTE | ~2020-04-03 | XR_ITS ---
EXAMINATION: XR chest 1V portable INDICATION: Endotracheal tube adjustment TECHNIQUE: Portable AP chest at 1855 hours COMPARISON: 0530 hours FINDINGS: The endotracheal tube ends approximately 2.7 cm above the russell. The nasogastric tube is f ollowed as far as the stomach. Its tip is beyond the inferior margin of the radiograph. A right inter nal jugular central venous catheter ends with its tip in the right brachiocephalic vein. The lung vol umes are low. Right basilar airspace opacities persist without significant change. There is stable ca rdiomegaly. No definite pleural effusion or pneumothorax is identified. A pacemaker lead courses from the left axillary region into the right ventricle. IMPRESSION: 1. Endotracheal tube approximately 2.7 cm above the russell. 2. Stable right basilar airspace opacity, likely atelectasis. Reviewed, dictated and finalized at location A. OBIOLOGY PROFESSOR
--- NOTE | ~2020-04-03 | XR_ITS ---
EXAMINATION: XR chest port-a-cath/central DATE: 04/03/2020 14:44 INDICATION: Central line placement. TECHNIQUE: A single frontal view of the chest was obtained on 2 radiographs. COMPARISON: Chest single view 04/03/2020 11:57 AM, CT abdomen and pelvis 04/03/2014 FINDINGS: There is elevation of right hemidiaphragm. A calcified left lung nodule and calcified left hilar lymph nodes are consistent with old granulomatous disease. There is mild atelectasis at the jose g bases. No pleural effusion or pneumothorax. Cardiomegaly is noted. There is a left chest pacer with lead in right ventricle. A right internal jugular central venous catheter is seen with tip in the mackey perior vena cava. IMPRESSION: 1. Central line tip in superior vena cava. 2. Elevation of right hemidiaphragm with mild atelectasis at the lung bases. 3. Cardiomegaly. Reviewed, dictated and finalized at location A. TION MAN
--- NOTE | ~2020-04-03 | XR_ITS ---
EXAMINATION: XR chest 1V portable EXAM DATE: 04/05/2020 06:18 INDICATION: Respiratory failure. TECHNIQUE: Portable AP frontal chest x-ray was obtained. Comparison is made to prior examination from 04/03/2020. FINDINGS: There is single lead pacemaker/AICD device seen with tip projecting over the expected loca tion of right ventricle. There is a right IJ venous line in position. Moderate amount of bibasilar atelectasis and superimposed edema or infection. Possible small pleural effusions. There is no pneumothorax suspected. The cardiac silhouette is enlarged. The bones and soft tissues are unremarkable. Mild progression in bibasilar airspace disease. IMPRESSION: 1. Line and tube(s) in position. 2. Mild progression of bibasilar acute airspace disease. Reviewed, dictated and finalized at location A. SECURITY
[2020-04-03] MEDS: SODIUM CHLORIDE 0.9% IV 1,000 ML 999 ML (10:50)
--- NOTE | 2020-04-03 10:55 | ECG_ITS ---
Measurements Intervals [place] Rate: 76 P: -87 TX: 249 QRS: 220 QRSD: 163 T: 35 QT: 427 QTc: 483 Interpretive Statements ELECTRONIC VENTRICULAR PACEMAKER BASELINE ARTIFACT- I, II, III, AVL, AVF, V6 NO FURTHER INTERPRETATION IS POSSIBLE ATYPICAL ECG Electronically Signed On 04-03-2020 11:35:22 [employer]ING [employer] MANAGER by Madhu Cisneros D.O.
--- NOTE | 2020-04-03 11:05 | ED.GIBLEED ---
HPI - GI Bleed General Chief complaint: GI Bleed Stated complaint: ?GI BLEED Source: RN notes reviewed History of Present Illness HPI Narrative: Patient presents to emergency department from home for GI bleed. Patient states that this morning he was having some abdominal discomfort and went to the restroom and had a bowel movement that had dark red blood in it states he also had episode of emesis that was dark in color as well. He states he is on Xarelto which he last took last night. He notes mild abdominal discomfort described as a cramping diffusely throughout the abdomen he denies any fevers or chills chest pain shortness of breath or any other symptoms he was diagnosed with Covid on 03/18/2020 and denies any symptoms from the Covid he states that he did have a syncopal episode on the toilet today when he is going to the restroom states he has had a colonoscopy performed by Dr. santiago in the past the patient was on a Decadron Dosepak started on 03/22/2020 for 5 days. Also the patient started Augmentin a day and a half ago and is taken 3 total doses for right foot wound Related Data Home Medications Medication Instructions Recorded Confirmed Janumet 1 tablet PO DAILY 10/02/19 10/13/19 ProAir RespiClick 1 inh INHALATION PRN PRN 10/02/19 10/13/19 Xarelto 20 mg PO HS 10/02/19 10/13/19 furosemide 40 mg PO DAILY 10/02/19 10/13/19 lisinopril 10 mg PO DAILY 10/02/19 10/13/19 rosuvastatin 10 mg PO DAILY 10/02/19 10/13/19 clobetasol 1 applic TOPICAL DAILY 10/05/19 10/13/19 amoxicillin-pot clavulanate 1 tablet PO Q12H 04/03/20 [Augmentin] insulin glargine [Lantus U-100 25 unit SUBCUT HS 04/03/20 Insulin] Allergies Allergy/AdvReac Type Severity Reaction Status Date / Time clindamycin Allergy Intermediate Rash Verified 10/13/19 13:48 dabigatran etexilate Allergy Unknown Unknown Verified 10/13/19 13:48 acetaminophen [From Percocet] Allergy Rash Verified 10/13/19 13:48 doxycycline Allergy Rash Verified 10/13/19 13:48 meperidine [From Demerol] Allergy Rash Verified 10/13/19 13:48 neomycin Allergy Rash Verified 10/13/19 13:48 oxycodone [From Percocet] Allergy Rash Verified 10/13/19 13:48 polymyxin B Allergy Rash Verified 10/13/19 13:48 OXYCODONE HCL Allergy Intermediate RASH Uncoded 10/02/19 09:17 Review of Systems Review of Systems: Narrative: Gen.: Denies fevers or chills Eyes: Denies eye pain or visual change ENT: Denies congestion Respiratory: Denies shortness of breath or cough CV: Denies chest pain or palpitations reports syncopal episode GI: See HPI denies burning, urgency, frequency or hematuria Musculoskeletal: Denies back pain or muscle pain Neuro: Denies numbness, tingling, weakness or focal weakness Skin: Denies rash Except as documented, all other systems reviewed and negative PMF Past Medical History Medical History Adenomatous colon polyp Ascending colon x3 on colonoscopy 10/05/2019. Current use of mcfp anticoagulation On Xarelto for paroxysmal atrial fibrillation. Degenerative arthritis of knee [id number] arthritis in both knees. Diabetic peripheral neuropathy Hyperlipidemia Hypertension Paroxysmal atrial fibrillation Status post cardiac ablation and permanent pacemaker insertion. Super obesity Tubulovillous adenoma Cecum on colonoscopy 10/05/2019. Type 2 diabetes mellitus Surgical History Surgical History (Updated 10/13/19 @ 17:18 by Britney Alanis PA-C) History of arthroscopic knee surgery History of cardiac radiofrequency ablation History of carpal tunnel release History of permanent cardiac pacemaker placement Family History Family History Mother Tuberculosis Kidney disease Father Lung cancer Heart attack Sibling Ovarian cancer Malignant neoplasm of prostate Lung cancer Social History Social History (Reviewed 04/03/20 @ 11:06 by Epifanio Chan
[2020-04-03] MEDS: SODIUM CHLORIDE 0.9% IV 1,000 ML 999 ML IV CONT (11:20)
[2020-04-03 11:25] LABS: Basophils Absolute Auto 0.1 K/mm3 (0.0-0.1); Basophils Percent Auto 0.2 % (0.2-1.2); Hematocrit 25.9 % (42.0-52.0); Hemoglobin 8.8 g/dL (14.0-18.0); Immature Granulocyte Absolute 0.29 K/mm3 (0.00-0.031); Immature Granulocyte Percent A 1.2 % (0-0.5); Lymphocytes Percent Auto 4.4 % (18.3-44.2); Mean Corpuscular Hemoglobin 32.1 pg (26-34); Mean Corpuscular Volume 94.5 fl (80-100); Mean Platelet Volume 11.6 fl (7.4-10.4); Monocytes Absolute Auto 2.4 K/mm3 (0.1-0.6); Monocytes Percent Auto 9.7 % (2.6-8.5); Neutrophils Absolute Auto 21.2 K/mm3 (1.3-6.7); Neutrophils Percent Auto 84.5 % (45.5-73.1); Platelet Count Result 197 k/mm3 (150-375); Red Blood Count 2.74 M/mm3 (4.6-6.20); Red Cell Distribution Width 12.3 % (11.5-14.5); White Blood Count 25.1 K/mm3 (4.5-10.0)
[2020-04-03 11:31] LABS: Alanine Aminotransferase 18 U/L (4-50); Albumin Level 2.6 g/dL (3.5-5.1); Alkaline Phosphatase 35 U/L (38-126); Anion Gap 7 mmol/L (8-16); Aspartate Amino Transferase 17 U/L (17-59); Bilirubin,Total 0.8 mg/dL (0.2-1.3); Blood Urea Nitrogen 47 mg/dL (9-20); Carbon Dioxide 29 mmol/L (22-30); Chloride 87 mmol/L (98-107); Estimated CRCL calculation 109 ml/min; Estimated Glomerular Filt Rate > 60; Glucose 409 mg/dL (75-110); Potassium 4.5 mmol/L (3.4-5.0); Sodium 123 mmol/L (137-145)
[2020-04-03 11:38] LABS: Lactic Acid Reflex 3.5 mmol/L (0.7-2.1)
[2020-04-03 11:39] LABS: INR 1.8; Prothrombin Time 21.3 Seconds (11.1-14.7)
[2020-04-03 11:40] LABS: Partial Thromboplastin Time 34.3 SECONDS (22.3-36.8)
[2020-04-03 12:08] LABS: Troponin I < 0.012 ng/mL (0.000-0.034)
[2020-04-03] MEDS: PANTOPRAZOLE SODIUM IV 40 MG VIAL IV PUSH ×2 (13:06→16:51)
--- NOTE | 2020-04-03 13:16 | PC.NURSE ---
manual bp taken on right arm 90/58. automatic cuff correlating. xray at bedside for right foot films due to right foot ulcer in which pt started augmentin for yesterday.
[2020-04-03 14:22] LABS: Reflex Lactic Acid Yes or No Add Lactic
[2020-04-03 14:24] LABS: Add Urine Microscopic? YES; Appearance Urine Clear (Clear); Bilirubin Urine Negative (Negative); Blood Urine Negative (Negative); Color Urine Yellow (Yellow); Glucose Urine UA 1+ mg/dL (Negative); Hyaline Casts Urine 20-29 /lpf; Ketones Urine Negative (Negative); Leukocyte Esterase Ur Negative LEU/UL (Negative); Mucus Urine Rare /lpf; Nitrate Urine Negative (Negative); Protein Urine Negative (Negative); RBC Urine 0-2 /hpf (0-2); Squamous Epithelial Cell Urine Occasional /hpf (Few); Transitional Epi Cells Urine Rare /hpf (None Seen); Urobilinogen Urine Negative mg/dL (<2.0); WBC Urine 0-3 /hpf
[2020-04-03 14:26] LABS: Specific Grav Ur 1.042 (1.001-1.035)
[2020-04-03] MEDS: PHYTONADIONE ADULT INJ 10 MG in DEXTROSE 5% IN WATER 50 ML 100 MG IVPB (14:55)
[2020-04-03] MEDS: NOREPINEPHRINE 8 MG/D5W 250 ML 8 MG/250 ML BAG 9.38 MG IV CONT (14:56)
--- NOTE | 2020-04-03 16:30 | PM.IMHP ---
H&P: HPI History of Present Illness Date/Time: 04/03/20 16:30 Chief complaint: Rectal bleeding, syncope. Narrative: Kimani Leos is a 69-year-old male with paroxysmal atrial fibrillation status post cardiac ablation and permanent pacemaker insertion on rivaroxaban, insulin-dependent type 2 diabetes mellitus, hypertension, and hyperlipidemia who presented to the emergency department earlier today via EMS from home with reports of rectal bleeding and syncope. He was diagnosed with COVID-19 on 03/18/2020 and completed a 5 day course of dexamethasone and azithromycin on 03/27/2020. Not long after starting the dexamethasone he began experiencing generalized abdominal discomfort which progressed to the point where he has severe ?burning and tearing? mainly in epigastrium radiating into the back. He has taken Pepto-Bismol and Gas-X without benefit in fact he began noticing abdominal distension after starting these medications. Food does seem to help somewhat with the burning discomfort. He took a Dulcolax this morning and not long prior to arrival while on the toilet trying to have a bowel movement, he began experiencing increasing pain followed by diaphoresis, nausea, and lightheadedness. He reportedly had several syncopal episodes while sitting on the toilet and luckily his was there and able to keep him situated on the toilet and he did not fall. His stools today were dark red/maroon and he did have 1 episode of emesis which was reportedly dark in color as well. Hemoglobin and hematocrit are nearly 3 g lower than what they were in October 2019, and he has been hypotensive since arrival. Despite IV fluid hydration and transfusing 1 unit of packed red blood cells, he remained hypotensive and a central line has been placed for which he has been started on vasopressors. At the time my evaluation he feels a bit better but does complain of mild shortness of breath. In regards to the COVID-19, he really is feeling much better and has no specific symptoms at this time. He denies current fever, headache, cold and flu symptoms, chest pain, pleuritic pain, palpitations, orthopnea, PND, and dysuria. 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 Review of Systems Review of Systems: Narrative: Twelve systems were reviewed with pertinent positives and negatives as per HPI. He sees a fermenter helper for chronic foot ulcers. He has chronic lower extremity edema and wears compression stockings ?23/11.? His glucose has been a bit elevated the last couple of days. Except as documented, all other systems were reviewed and are negative. [facility] Past Medical History Medical History (Updated 04/03/20 @ 15:52 by Britney Alanis PA-C) Adenomatous colon polyp Ascending colon x3 on colonoscopy 10/05/2019. 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 Degenerative arthritis of knee [id number]-gq-[id number] arthritis in both knees. Diabetic peripheral neuropathy Hyperlipidemia Hypertension Insulin dependent type 2 diabetes mellitus Paroxysmal atrial fibrillation Status post cardiac ablation and permanent pacemaker insertion. Super obesity Tubulovillous adenoma Cecum on colonoscopy 10/05/2019. Surgical History Surgical History (Updated 10/13/19 @ 17:18 by Britney Alanis PA-C) History of arthroscopic knee surgery History of cardiac radiofrequency ablation History of carpal tunnel release History of permanent cardiac pacemaker placement Family History Family History Mother Tuberculosis Kidney disease Father Lung cancer Heart attack Sibling Ovarian cancer Malignant neoplasm of prostate Lung cancer Social History Social History Social History: [place]
--- NOTE | 2020-04-03 17:11 | PC.NURSE ---
Pt. recieved at approximately 1600 from ER see admission worklist for details
[2020-04-03 20:47] LABS: Hematocrit 22.6 % (42.0-52.0); Hemoglobin 7.7 g/dL (14.0-18.0)
[2020-04-03] MEDS: CENTRAL LINE FLUSH 10 ML IV PUSH (20:47)
[2020-04-03 20:55] LABS: Glucose Point of Care 478 (65-105)
[2020-04-03] MEDS: INSULIN HUMAN REGULAR (*BKC) 100 UNITS/ML 8 UNITS SUB-Q (21:26)
[2020-04-03] MEDS: SODIUM CHLORIDE 0.9% IV 250 ML 30 ML IV CONT (22:29)
[2020-04-03] MEDS: PANTOPRAZOLE SODIUM IV 40 MG VIAL 80 MG IV PUSH (22:32)
[2020-04-03] MEDS: FUROSEMIDE INJ 40 MG/4 ML VIAL 20 MG IV PUSH (22:32)
--- NOTE | 2020-04-03 23:30 | PM.EVENT ---
Event Note Event Note Event Note: Patient continues to have bloody stools, with a hemoglobin and hematocrit of 7.7 (down from 8.8) after receiving 2 units packed red blood cells. Blood pressures remain low despite norepinephrine. As he is on Xarelto, Kcentra will be given for hemorrhagic shock despite transfusion. <Britney Alanis PA-C - Last Filed: 04/04/20 00:21> 04/04/2020 at 0440 agree with PAs assessment. The patient's condition has continued to decline overnight. He is maxed out on Levophed. His blood pressures remain in the 70s systolic. Dopamine was subsequently added. His blood pressures again dropped into the 50s. His dopamine was maxed out. Will subsequently vasopressin has been ordered. The 5th unit of blood has been ordered. The patient has had 2 moderate dark stools. He remains nauseated. His repeat hemoglobin was 8 after total 4 units of blood to keep his hemoglobin stable. He remains on broad-spectrum antibiotic coverage to cover possible septic component to his shock. The patient is now complaining of shortness of breath if he is placed in a reclined position. He did receive 20 mg of Lasix between the 2nd and 3rd unit of blood. Patient's creatinine is climbed 1.5 and his potassium is climbed to 5.1. Patient's case was discussed with gastroenterologists who recommended vitamin K and fresh frozen plasma. I have called and discussed the patient's case with the substation design draftsperson in of asked the nurse to update the substation design draftsperson as to the course the patient's clinical condition. Assessment and plan: 1. shock: Possibly multifactorial due to GI blood losses and sepsis. Broad-spectrum antibiotic coverage and volume resuscitation with blood and FFP as discussed above. 2. Acute renal failure with hyperkalemia due to shock: Continue pressor support hopefully improve renal perfusion. Continue insulin drip to improve hyperkalemia and hyperglycemia. 3.: Hyperglycemic hyperosmolar state: Insulin drip has been initiated and has been titrated up to over 12 units. The patient's glucoses were initially improving but have now started to climb again. Will change the carrier fluids in the patient's IV drips to normal saline. Hyperglycemia is in part due to stress reaction. 35 minutes spent in critical care activities. <Pat Quevedo DO - Last Filed: 04/04/20 04:47>
[2020-04-04] VITALS (70 sets, daily range): BP systolic 65–118; BP diastolic 42–74; PULSE 75–94; RESP 15–23; TEMP 36.1–37.2; O2SAT 91–99; BMI 54.6
[2020-04-04 00:23] LABS: Glucose Point of Care > 500 (65-105)
[2020-04-04] MEDS: INSULIN HUMAN REGULAR (*BKC) 100 UNITS/ML 15 UNITS IV PUSH (01:03)
[2020-04-04] MEDS: INSULIN HUMAN REGULAR (*BKC) 100 UNITS in SODIUM CHLORIDE 0.9% IV 99 ML 8.8 UNITS IV CONT (01:05)
[2020-04-04] MEDS: SODIUM CHLORIDE 0.9% IV 1,000 ML 80 ML IV CONT (01:07)
[2020-04-04 01:11] LABS: Basophils Percent Auto 0.1 % (0.2-1.2); Hematocrit 23.7 % (42.0-52.0); Hemoglobin 7.9 g/dL (14.0-18.0); Immature Granulocyte Absolute 0.41 K/mm3 (0.00-0.031); Immature Granulocyte Percent A 1.5 % (0-0.5); Lymphocytes Absolute Auto 1.31 K/mm3 (0.9-3.2); Lymphocytes Percent Auto 4.7 % (18.3-44.2); Mean Corpuscular HGB Conc 33.3 g/dl (32-36); Mean Corpuscular Hemoglobin 31.2 pg (26-34); Mean Corpuscular Volume 93.7 fl (80-100); Mean Platelet Volume 11.8 fl (7.4-10.4); Monocytes Absolute Auto 2.4 K/mm3 (0.1-0.6); Monocytes Percent Auto 8.7 % (2.6-8.5); Neutrophils Absolute Auto 23.7 K/mm3 (1.3-6.7); Platelet Count Result 167 k/mm3 (150-375); Red Blood Count 2.53 M/mm3 (4.6-6.20); Red Cell Distribution Width 13.5 % (11.5-14.5); White Blood Count 27.9 K/mm3 (4.5-10.0)
[2020-04-04 01:18] LABS: INR 1.8; Partial Thromboplastin Time 28.1 SECONDS (22.3-36.8); Prothrombin Time 21.7 Seconds (11.1-14.7)
[2020-04-04 01:24] LABS: Fibrinogen 224 mg/dl (215-510)
[2020-04-04 01:29] LABS: Anion Gap 5 mmol/L (8-16); Blood Urea Nitrogen 69 mg/dL (9-20); Calcium 7.5 mg/dL (8.4-10.2); Carbon Dioxide 28 mmol/L (22-30); Chloride 86 mmol/L (98-107); Estimated CRCL calculation 74 ml/min; Estimated Glomerular Filt Rate 46; Glucose 568 mg/dL (75-110); Magnesium 2.3 mg/dL (1.6-2.3); Phosphorus 2.9 mg/dL (2.5-4.5); Potassium 5.1 mmol/L (3.4-5.0); Sodium 119 mmol/L (137-145)
[2020-04-04 01:32] LABS: D Dimer 0.27 ug/mL (<0.48)
[2020-04-04 01:49] LABS: Hemoglobin A1C 6.8 % (<5.7)
[2020-04-04] MEDS: NOREPINEPHRINE 8 MG/D5W 250 ML 8 MG/250 ML BAG 56.25 MG IV CONT ×2 (01:51→06:42)
[2020-04-04 02:03] LABS: Glucose Point of Care > 500 (65-105)
[2020-04-04 02:37] LABS: Hematocrit 23.6 % (42.0-52.0)
[2020-04-04 02:40] LABS: Glucose Point of Care 483 (65-105)
[2020-04-04] MEDS: DOPamine 400 MG/D5W 250 ML 400 MG/250 ML BAG 44.1 MG IV CONT (03:40)
[2020-04-04 03:44] LABS: Glucose Point of Care 450 (65-105)
[2020-04-04 04:34] LABS: Glucose Point of Care > 500 (65-105)
[2020-04-04] MEDS: PHYTONADIONE ADULT INJ 10 MG in DEXTROSE 5% IN WATER 50 ML 100 MG IVPB (04:59)
[2020-04-04] MEDS: VASOPRESSIN INJ 100 UNITS in DEXTROSE 5% 95 ML IV CONT (04:59)
[2020-04-04 05:03] LABS: Basophils Absolute Auto 0.1 K/mm3 (0.0-0.1); Basophils Percent Auto 0.2 % (0.2-1.2); Hematocrit 25.5 % (42.0-52.0); Hemoglobin 8.6 g/dL (14.0-18.0); Immature Granulocyte Absolute 0.87 K/mm3 (0.00-0.031); Immature Granulocyte Percent A 2.6 % (0-0.5); Lymphocytes Absolute Auto 1.59 K/mm3 (0.9-3.2); Lymphocytes Percent Auto 4.8 % (18.3-44.2); Mean Corpuscular HGB Conc 33.7 g/dl (32-36); Mean Corpuscular Hemoglobin 30.8 pg (26-34); Mean Corpuscular Volume 91.4 fl (80-100); Mean Platelet Volume 12.1 fl (7.4-10.4); Monocytes Absolute Auto 2.3 K/mm3 (0.1-0.6); Monocytes Percent Auto 6.8 % (2.6-8.5); Neutrophils Absolute Auto 28.2 K/mm3 (1.3-6.7); Neutrophils Percent Auto 85.6 % (45.5-73.1); Platelet Count Result 184 k/mm3 (150-375); Red Blood Count 2.79 M/mm3 (4.6-6.20); Red Cell Distribution Width 13.5 % (11.5-14.5); White Blood Count 32.9 K/mm3 (4.5-10.0)
[2020-04-04] MEDS: METOCLOPRAMIDE HCL INJ 10 MG/2 ML VIAL IV PUSH (05:03)
[2020-04-04] MEDS: SODIUM CHLORIDE 0.9% IV 250 ML 30 ML IV CONT (05:05)
[2020-04-04 05:36] LABS: Alanine Aminotransferase 16 U/L (4-50); Albumin Level 2.2 g/dL (3.5-5.1); Alkaline Phosphatase 32 U/L (38-126); Anion Gap 11 mmol/L (8-16); Aspartate Amino Transferase 27 U/L (17-59); Bilirubin,Total 0.7 mg/dL (0.2-1.3); Blood Urea Nitrogen 74 mg/dL (9-20); Calcium 7.7 mg/dL (8.4-10.2); Carbon Dioxide 23 mmol/L (22-30); Chloride 88 mmol/L (98-107); Estimated CRCL calculation 59 ml/min; Estimated Glomerular Filt Rate 35; Glucose 512 mg/dL (75-110); Potassium 4.4 mmol/L (3.4-5.0); Sodium 122 mmol/L (137-145)
[2020-04-04] MEDS: EPINEPHrine INJ 1 MG in DEXTROSE 5% IN WATER 250 ML 15.06 MG IV CONT (05:59)
[2020-04-04] MEDS: DOPamine 400 MG/D5W 250 ML 400 MG/250 ML BAG 147 MG IV CONT ×10 (06:02→23:25)
--- NOTE | 2020-04-04 06:11 | WPDANESEPP ---
Anes - Eval Pre Procedure Procedure: Operation Date: 04/04/20 14:00 Proposed Procedures p Esophagogastroduodenoscopy - Chip Garg DO Date/Time: 04/04/20 06:11 Pre Op Diagnosis: Rectal bleeding, syncope. Patient Data Age: 69 Gender: M Height: 1.91 m Weight: 196 kg Last Vital Signs Temp 36.2 C L 04/04/20 06:08 Pulse 80 04/04/20 06:08 Resp 17 04/04/20 06:08 BP 94/54 L 04/04/20 06:08 Pulse Ox 93 04/04/20 06:08 Allergies Allergy/AdvReac Type Severity Reaction Status Date / Time clindamycin Allergy Intermediate Rash Verified 10/13/19 13:48 dabigatran etexilate Allergy Unknown Unknown Verified 10/13/19 13:48 acetaminophen [From Percocet] Allergy Rash Verified 10/13/19 13:48 doxycycline Allergy Rash Verified 10/13/19 13:48 meperidine [From Demerol] Allergy Rash Verified 10/13/19 13:48 neomycin Allergy Rash Verified 10/13/19 13:48 oxycodone [From Percocet] Allergy Rash Verified 10/13/19 13:48 polymyxin B Allergy Rash Verified 10/13/19 13:48 Home Medications Medication Instructions Recorded Confirmed Type Janumet 1 tablet PO DAILY 10/02/19 04/03/20 History ProAir RespiClick 1 inh INHALATION PRN PRN 10/02/19 04/03/20 History Xarelto 20 mg PO HS 10/02/19 04/03/20 History furosemide 40 mg PO DAILY 10/02/19 04/03/20 History lisinopril 10 mg PO DAILY 10/02/19 04/03/20 History rosuvastatin 10 mg PO DAILY 10/02/19 04/03/20 History glimepiride 4 mg PO DAILY 04/03/20 04/03/20 History insulin glargine [Lantus U-100 25 unit SUBCUT HS 04/03/20 04/03/20 History Insulin] pantoprazole 40 mg PO DAILY 04/03/20 04/03/20 History Laboratory Tests 04/03/20 04/03/20 04/03/20 11:03 11:03 11:03 WBC 25.1 K/mm3 H K/mm3 (4.5-10.0) RBC 2.74 M/mm3 L M/mm3 (4.6-6.20) Hgb 8.8 g/dL L g/dL (14.0-18.0) Hct 25.9 % L % (42.0-52.0) MCV 94.5 fl fl (80-100) MCH 32.1 pg pg (26-34) MCHC 34.0 g/dl g/dl (32-36) RDW 12.3 % % (11.5-14.5) Plt Count 197 k/mm3 k/mm3 (150-375) MPV 11.6 fl H fl (7.4-10.4) Immature Gran % (Auto) 1.2 % H % (0-0.5) Neut % (Auto) 84.5 % H % (45.5-73.1) Lymph % (Auto) 4.4 % L % (18.3-44.2) [place] % (Auto) 9.7 % H % (2.6-8.5) Eos % (Auto) 0.0 % % (0-4.4) Baso % (Auto) 0.2 % % (0.2-1.2) Lymph # (Auto) 1.10 K/mm3 K/mm3 (0.9-3.2) [place] # (Auto) 2.4 K/mm3 H K/mm3 (0.1-0.6) Eos # (Auto) 0.0 K/mm3 K/mm3 (0-0.3) Baso # (Auto) 0.1 K/mm3 K/mm3 (0.0-0.1) Abs Immat Gran (auto) 0.29 K/mm3 H K/mm3 (0.00-0.031) Absolute Neuts (auto) 21.2 K/mm3 H K/mm3 (1.3-6.7) Absolute Nucleated RBC 0.0 K/mm3 K/mm3 (0.0-0.012) Nucleated RBC % 0.0 % % (0.0-0.2) PT INR APTT Fibrinogen D-Dimer Sodium 123 mmol/L L mmol/L (137-145) Potassium 4.5 mmol/L mmol/L (3.4-5.0) Chloride 87 mmol/L L mmol/L (98-107) Carbon Dioxide 29 mmol/L mmol/L (22-30) Anion Gap 7 mmol/L L mmol/L (8-16) BUN 47 mg/dL H D mg/dL (9-20) Creatinine 1.00 mg/dL mg/dL (0.7-1.3) Estim Creat Clear Calc 109 ml/min ml/min Estimated GFR > 60 (59 - ) Glucose 409 mg/dL H mg/dL (75-110) POC Capillary Glucose Hemoglobin A1c Lactic Acid Calcium 8.0 mg/dL L mg/dL (8.4-10.2) Phosphorus Magnesium Total Bilirubin 0.8 mg/dL mg/dL (0.2-1.3) AST 17 U/L U/L (17-59) ALT 18 U/L U/L (4-50) Alkaline Phosphatase 35 U/L L U/L (38-126) Troponin I < 0.012 ng/mL ng/mL (0.000-0.034) Total Protein 5.0 g/dL L g/dL (6.3-8.2) Albumin 2.6 g/dL L g/dL (3.5-5.1) Urine Color Uri
[2020-04-04] MEDS: INSULIN HUMAN REGULAR (*BKC) 100 UNITS in SODIUM CHLORIDE 0.9% IV 99 ML 30 UNITS IV CONT (06:26)
[2020-04-04 06:35] LABS: Glucose Point of Care 493 (65-105)
[2020-04-04 06:35] LABS: Glucose Point of Care > 500 (65-105)
[2020-04-04] MEDS: CENTRAL LINE FLUSH 10 ML IV PUSH ×4 (06:46→22:50)
--- NOTE | 2020-04-04 06:49 | WPDGICN ---
GI Consult Note Consult date/time: 04/04/20 06:49 HPI: Reason for GI consultation GI bleeding. This very pleasant gentleman seen in consultation at request of the hospitalist in Critical Care. The patient was examined and chart review. Impression: Upper GI bleeding. Evaluate for lying peptic ulcer disease, gastritis, varices, etc. Hypotension secondary to above. Anemia. This is secondary to GI blood loss. Coagulopathy. Adenomatous colon polyps. History of post polypectomy bleeding. Morbid obesity. Atrial fibrillation status post pacemaker placement. HTN. HLD. DM. Neuropathy. Venous stasis changes. Recommendation: Patient has been given fresh frozen plasma, packed red blood cells, Protonix and vitamin K. he is presently on pressor support. Will proceed with EGD. History: This very pleasant gentleman is well known to myself. He has been seen back in October for a colonoscopy. He had multiple adenomatous polyps. He did develop a post polypectomy bleeding. This resolved spontaneously. The patient is is on long-term anticoagulation for atrial fibrillation. He was fine until a couple days ago when he began having some abdominal cramping. He took some Pepto-Bismol. He subsequently had black stools and coffee-ground emesis. He does complain of some indigestion last couple of days. NSAID use is denied. The patient presented emergency room with the above symptoms. He has been given vitamin K, packed cells, Protonix and fresh frozen plasma. The patient since being hospitalized has had 2 black stools. He continues to have some abdominal cramping. NG tube was placed revealing old blood. GI consultation was obtained. Patient has had complaints of some dyspnea exertion and shortness of breath. He did report a syncopal episode yesterday. Seizures were tonight. He denied any chest pain, tightness, PND or orthopnea. Physical examination: General: very pleasant patient appears ill. HEENT: Head was normocephalic sclerae is clear mouth without masses neck was supple. Heart: Rate rhythm regular without S3 or S4. He is paced. Lungs: CTA. Abdomen: Soft with no guarding or rigidity. Bowel sounds were active. Neurologic: Cranial nerves 2 through 12 intact. No focal defects. No clonus. Musculoskeletal system: Revealed no joint tenderness or swelling no muscle atrophy. Extremities: Lower extremity edema with venous stasis changes.. Skin: Warm and dry with normal turgor. Mental status: intact. Patient is alert and oriented. I want to thank you for allowing me to participate in care of this [place] patient. If I can be any further service to you please do hesitate to contact me at any time sign. Review of Systems Review of Systems: All systems reviewed & are unremarkable except as noted in HPI and below PMFSH Past Medical History Medical History Adenomatous colon polyp Ascending colon x3 on colonoscopy 10/05/2019. Current use of salvage determiner anticoagulation On Xarelto for paroxysmal atrial fibrillation. Degenerative arthritis of knee [id number] arthritis in both knees. Diabetic peripheral neuropathy HLD (hyperlipidemia) HTN (hypertension) Insulin dependent type 2 diabetes mellitus Paroxysmal atrial fibrillation Status post cardiac ablation and permanent pacemaker insertion. Super obesity Surgical History Surgical History H/O colonoscopy History of arthroscopic knee surgery History of cardiac radiofrequency ablation History of carpal tunnel release History of permanent cardiac pacemaker placement Family History Family History Mother Tuberculosis Kidney disease Father Lung cancer Heart attack Sibling Ovarian cancer Malignant neoplasm of prostate Lung cancer Social History Social History (Reviewed 04/03/20 @ 17:39 by Britney Espana
--- NOTE | 2020-04-04 07:15 | PC.NURSE ---
Family called for patient update. No answer at this time.
[2020-04-04] MEDS: FENTANYL 2,500MCG/NS250ML(*CRX 2,500 MCG/250 ML BAG (07:34)
--- NOTE | 2020-04-04 07:40 | PM.PROC ---
Procedure Note - Detailed Date of procedure: 04/04/20 Pre-op diagnosis: Rectal bleeding, syncope. Surgeon: Chip Garg DO History prepped diagnosis: Very pleasant gentleman presented with coffee-ground emesis and melena. He is here for endoscopic evaluation to evaluate for lying upper GI bleeding. Postop diagnosis: Mild duodenitis. Questionable vascular lesion gastric body. Dieulafoy's? No fresh blood. Anesthesia: General with intubation. Procedure performed: EGD with control hemorrhage with hemostatic clipping x1. Complication: None. Recommendation: Continue PPI. Continue supportive care. Ultrasound Doppler studies of the SMA, celiac and ALLYSON. Nuclear medicine bleeding scan. Procedure: Patient will intensive care unit underwent general anesthesia with intubation. Patient was placed in the left lateral position. Using the [employer] video endoscope was inserted without difficulty into the esophagus. No fresh blood was noted. The Z-line was distinct at approximately 50 cm. Scope was carefully advanced under direct vision well into the small bowel. The extent of insertion was distal duodenum. No fresh blood was noted. Duodenitis was noted in the bulb. Examination of stomach in forward and retroflexed views revealed no fresh blood. A questionable mass or lesion, Dieulafoy's, was noted in the gastric body. This was not overly convincing. Hemostatic clips placed without difficulty. The scope was withdrawn from the patient. The patient tolerated the procedure well.
--- NOTE | 2020-04-04 07:56 | WPDANESEFPP ---
Anes - Eval Final PreProcedure Day of Procedure 04/04/20 07:56 Patient weight: super morbidly obese Heart: regular rate and rhythm (paced) Lungs: decreased breath sounds Airway: Mallampati scale class III Neurological: lethargic Last oral intake: >/= 8 hours ASA classification: IV Emergent: yes Anesthetic plan: proceed Anesthesia type and monitoring: general ETT and standard monitoring Informed Consent: The patient's anesthetic plan of GA with ETT and its attendant risks including prolonged intubation and benefits were discussed with the patient prior to the emergent procedure. Questions were solicited and answers provided to the satisfaction of the patient/family/POA.
[2020-04-04] MEDS: PANTOPRAZOLE SODIUM IV 40 MG VIAL 80 MG IV PUSH ×2 (08:51→20:11)
[2020-04-04 09:15] LABS: Hematocrit 28.6 % (42.0-52.0); Hemoglobin 9.8 g/dL (14.0-18.0); Mean Corpuscular HGB Conc 34.3 g/dl (32-36); Mean Corpuscular Hemoglobin 31.3 pg (26-34); Mean Corpuscular Volume 91.4 fl (80-100); Mean Platelet Volume 11.2 fl (7.4-10.4); Platelet Count Result 154 k/mm3 (150-375); Red Blood Count 3.13 M/mm3 (4.6-6.20); Red Cell Distribution Width 13.1 % (11.5-14.5); White Blood Count 46.8 K/mm3 (4.5-10.0)
[2020-04-04] MEDS: INSULIN HUMAN REGULAR (*BKC) 100 UNITS in SODIUM CHLORIDE 0.9% IV 99 ML 38.7 UNITS IV CONT (09:20)
[2020-04-04 09:24] LABS: INR 1.8; Prothrombin Time 21.3 Seconds (11.1-14.7)
[2020-04-04 09:29] LABS: Alanine Aminotransferase 19 U/L (4-50); Albumin Level 2.2 g/dL (3.5-5.1); Alkaline Phosphatase 38 U/L (38-126); Anion Gap 8 mmol/L (8-16); Aspartate Amino Transferase 52 U/L (17-59); Bilirubin,Total 0.5 mg/dL (0.2-1.3); Blood Urea Nitrogen 75 mg/dL (9-20); Calcium 7.5 mg/dL (8.4-10.2); Carbon Dioxide 26 mmol/L (22-30); Chloride 87 mmol/L (98-107); Estimated CRCL calculation 54 ml/min; Estimated Glomerular Filt Rate 31; Glucose 460 mg/dL (75-110); Magnesium 2.4 mg/dL (1.6-2.3); Phosphorus 3.2 mg/dL (2.5-4.5); Sodium 121 mmol/L (137-145)
[2020-04-04 09:48] LABS: Glucose Point of Care 494 (65-105)
[2020-04-04 09:48] LABS: Glucose Point of Care 490 (65-105)
[2020-04-04 10:26] LABS: Cholesterol 69 mg/dL (0-200); HDL Direct 19 mg/dL; Triglycerides 148 mg/dL (<150)
[2020-04-04] MEDS: EPINEPHrine INJ 4 MG in DEXTROSE 5% IN WATER 250 ML 34.29 MG IV CONT ×2 (10:34→18:10)
[2020-04-04 10:38] LABS: LDL Cholesterol Direct < 30 mg/dL
[2020-04-04 10:56] LABS: Thyroid Stimulating Hormone 0.919 uIU/mL (0.465-4.680)
[2020-04-04] MEDS: NOREPINEPHRINE BITARTRATE 16 MG in DEXTROSE 5% IN WATER 234 ML 28.13 ML IV CONT ×2 (11:42→19:50)
[2020-04-04] MEDS: HYDROCORTISONE SODIUM SUCCINATE 100 MG/2 ML VIAL IV PUSH ×3 (11:48→22:50)
--- NOTE | 2020-04-04 11:56 | WPDCNINT ---
Assessment and Plan Assessment and plan (1) Shock: Code(s): R57.9 - Shock, unspecified Status: Acute Assessment and Plan: Patient presented with syncope, maroon stools, dark colored emesis, anemia -patient received IV fluids and multiple blood products despite which he remains on epinephrine, Levophed, vasopressin, phenylephrine, dopamine -check lactic acid Arterial line placed on 04/04 -wound culture 04/03 growing gram-positive cocci in clusters -blood cultures pending -continue vancomycin and imipenem (2) GI bleed: Code(s): K92.2 - Gastrointestinal hemorrhage, unspecified Status: Acute Assessment and Plan: Patient with GI bleed, status post EGD 04/04, mild duodenitis, Dieulafoy's lesion, clipping x1 to control hemorrhage -continue Protonix 80 mg IV q.12 hours -GI following closely -will continue to monitor H&H (3) Syncope: Code(s): R55 - Syncope and collapse Status: Acute Assessment and Plan: Syncope could be related to hypotension, GI bleed -troponin negative times x1 (4) Insulin dependent type 2 diabetes mellitus: Code(s): E11.9 - Type 2 diabetes mellitus without complications; Z79.4 - termite inspector (current) use of insulin Status: Acute Assessment and Plan: patient with hyperglycemia likely related to stress -patient on insulin infusion (5) Paroxysmal atrial fibrillation: Code(s): I48.0 - Paroxysmal atrial fibrillation Status: Acute Assessment and Plan: Proximal AFib currently paced rhythm rate controlled, continue to monitor -patient was on Eliquis at home which is currently on hold (6) Anemia: Code(s): D64.9 - Anemia, unspecified Status: Acute Assessment and Plan: Anemia on admission, hemoglobin 9.8 this morning after receiving multiple blood products -continue to monitor H&H Q 6 hours Additional Plan Discussed with and daughter and updated them with patient's condition and plan of care. I updated them regarding patient being on 5 vasopressors, is in a state of shock, I told him that patient is very critically. Discussed code status to which they requested for him being a full code and they wanted everything to be done to keep him alive. Code status: Full code Critical care time spent: 49 minutes Condition: Very critical and guarded Due to a high probability of clinically significant, life threatening deterioration, the patient required my highest level of preparedness to intervene emergently and I personally spent this critical care time directly and personally managing the patient. This critical care time included obtaining a history; examining the patient; pulse oximetry; ordering and review of studies; arranging urgent treatment with development of a management plan; evaluation of patient's response to treatment; frequent reassessment; and discussions with other providers. It was exclusive of separately billable procedures and treating other patients and teaching time. Please see Assessment and Plan section and the rest of the note for further information on patient assessment and treatment Chain Saw Driver Consult Note Consult date: 04/04/20 Time Seen: 07:11 Reason for consult: GI bleed, shock, sepsis HPI: Kimani Leos is a 69 year old male paroxysmal AFib status post ablation, permanent pacemaker on Xarelto, diabetes, morbid obesity, degenerative arthritis of the knee diabetic neuropathy, hyperlipidemia, essential hypertension presented the ED via EMS on 04/03/2020 with complains of rectal bleeding and syncope. Patient was diagnosed with COVID-19 on 03/18/2020 and has completed a course of dexamethasone, azithromycin. After starting dexamethasone he began experiencing generalized abdominal discomfort which progressed to severe burning, tearing and mainly epigastric in nature radiating to the back. He did take Pepto-Bismol and Gas-X after which she had noticed abdominal distention. Followed by diaphoresis
[2020-04-04] MEDS: FENTANYL 2,500MCG/NS250ML(*CRX 2,500 MCG/250 ML BAG 10 MCG IV CONT (12:38)
[2020-04-04 13:11] LABS: Lactic Acid Reflex 3.7 mmol/L (0.7-2.1)
--- NOTE | 2020-04-04 13:11 | P.PCNBED_ITS ---
Procedures Arterial Line Arterial Line Date: 04/04/20 Discussed with the patient/family/POA, the placement of an arterial catheter, including its clinical necessity/indication and associated potential risks, benefits and alternatives.: Yes Patient/family/POA and/or understands and acknowledges the need to proceed with the arterial catheter insertion as an important element of the patient's clinical management.: Yes Time Out Performed: Yes Patient Position: supine Record Label Internship Prep: sterile gown, sterile gloves, mask and other (PAPR) Site: right and femoral Site Prep: chlorhexidine and sterile drape Technique used: guide wire technique Size (Gauge): 16 Length: 12 cm Closure/Dressing: suture, transparent dressing, antimicrobial product and securement product Patient tolerated procedure: well Complications: none
[2020-04-04 13:16] LABS: Alveolar/Arterial O2 Gradient 230.5 mmHg; Base Excess ABG -6.2 mEq/l (+/-2.0); Carboxyhemoglobin 0.3 % THb (0-2.0); Fractional Inspired Oxygen 50 %; HCO3 ABG 21.1 mEq/l (22.0-26.0); Methemoglobin ABG 0.3 %THb (0-1.5); Oxygen Content ABG 13.5 %vol (16.0-22.0); Oxygen Saturation ABG 90.8 % (95.0-100.0); Oxyhemoglobin 91.1 % THb (90.0-100.0); PCO2 ABG 50.3 mmHg (35.0-45.0); PO2 ABG 69.4 mmHg (80.0-100.0); PO2 FiO2 Ratio Arterial Blood 1.39 %; Reduced Hemoglobin 8.3 %THb (0-5.0); Total Hemoglobin 10.5 g/dL (12.0-18.0)
[2020-04-04 13:18] LABS: Arterial Blood Gas Ventilator rate 15 /MIN; Device VENTILATOR; Site Drawn ARTLINE; pH ABG 7.241 (7.350-7.450)
[2020-04-04 13:19] LABS: Arterial Blood Gas PEEP 5 cmH2O; Arterial Blood Gas Tidal Volume 500 ml; Arterial Blood Gas Vent Mode CMV
[2020-04-04 13:31] LABS: Vancomycin Trough 27.9 ug/mL (10.0-20.0)
[2020-04-04 13:43] LABS: Free T4 Free Thyroxine 0.97 ng/mL (0.78-2.19)
--- NOTE | 2020-04-04 14:59 | PM.IMPN ---
Progress Note: A&P Assessment and Plan (1) GI bleed: Code(s): K92.2 - Gastrointestinal hemorrhage, unspecified Status: Acute Assessment and Plan: 04/04/20 14:59 Patient is 69-year-old male with history of work proximal atrial fibrillation status post ablation and on Xarelto, insulin-dependent diabetes, hypertension hyperlipidemia he had been seen GI and had a colonoscopy due to multiple adenomatous polyp and had developed polyectomy bleeding, patient was recently diagnosed with COVID-19 he was started on dexamethasone patient stated few days after taking dexamethasone he developed abdominal pain and symptoms were getting worse he started to have rectal bleeding and presented emergency department further evaluation, currently patient on vent unable to provide detailed review of symptom, he was seen by GI had a EGD today which showed mild duodenitis and Dieulafoy's hemostatic clipx1 was applied to help control the bleeding. 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 (2) Acute blood loss anemia: Code(s): D62 - Acute posthemorrhagic anemia Status: Acute Assessment and Plan: Most likely secondary to upper GI bleed patient had a EGD and was treated now on PPI (3) Syncope: Code(s): R55 - Syncope and collapse Status: Acute Assessment and Plan: Most likely due to anemia will continue to monitor once clinically stable will have a PT OT evaluate the patient (4) Severe sepsis: Code(s): A41.9 - Sepsis, unspecified organism; R65.20 - Severe sepsis without septic shock Status: Acute Assessment and Plan: Plan is above (5) Hyponatremia: Code(s): E87.1 - Hypo-osmolality and hyponatremia Status: Acute Assessment and Plan: Most likely secondary to dehydration due to abdominal pain and poor p.o. intake, will gently hydrate the patient and monitor (6) Cellulitis of foot, right: Code(s): L03.115 - Cellulitis of right lower limb Status: Acute Assessment and Plan: Most likely diabetic ulcer patient being treated with imipenem and vancomycin once clinically stable will have wound team evaluate the patient entry (7) Paroxysmal atrial fibrillation: Code(s): I48.0 - Paroxysmal atrial fibrillation Status: Acute Assessment and Plan: Rate is controlled anticoagulation on hold due to GI bleed (8) Hypertension: Code(s): I10 - Essential (primary) hypertension Status: Acute Assessment and Plan: Continue home regimen and monitor (9) Type 2 diabetes mellitus: Code(s): E11.9 - Type 2 diabetes mellitus without complications Status: Inactive (10) Insulin dependent type 2 diabetes mellitus: Code(s): E11.9 - Type 2 diabetes mellitus without complications; Z79.4 - jail (current) use of insulin Status: Acute Assessment and Plan: Will continue home regimen and monitor Subjective Date/time seen: 04/04/20 14:59 Patient is 69-year-old male with history of work proximal atrial fibrillation status post ablation and on Xarelto, insulin-dependent diabetes, hypertension hyperlipidemia he had been seen GI and had a colonoscopy due to multiple adenomatous polyp and had developed polyectomy bleeding, patient was recently diagnosed with COVID-19 he was started on dexamethasone patient stated few days after taking dexamethasone he developed abdominal pain and symptoms were getti
[2020-04-04] MEDS: INSULIN HUMAN REGULAR (*BKC) 100 UNITS in SODIUM CHLORIDE 0.9% IV 99 ML 38.9 UNITS IV CONT (15:17)
--- NOTE | 2020-04-04 15:26 | PC.NURSE ---
patient status remains too unstable to risk transporting patient to nuclear medicine for GI scan. Hemoglobin remains stable at this time. Patient is status post EGD and clip application this AM 04/04/20 at approximately 0730.
[2020-04-04 15:58] LABS: Reflex Lactic Acid Yes or No Add Lactic
[2020-04-04] MEDS: SODIUM BICARBONATE 8.4% 150 MEQ in WATER, STERILE FOR INJECTION 950 ML 75 MEQ IV CONT (17:10)
[2020-04-04] MEDS: INSULIN HUMAN REGULAR (*BKC) 100 UNITS in SODIUM CHLORIDE 0.9% IV 99 ML 40.9 UNITS IV CONT (17:29)
[2020-04-04 18:21] LABS: Glucose Point of Care 316 (65-105)
[2020-04-04 18:21] LABS: Glucose Point of Care 411 (65-105)
[2020-04-04 18:21] LABS: Glucose Point of Care 342 (65-105)
[2020-04-04 18:21] LABS: Glucose Point of Care 338 (65-105)
[2020-04-04 18:21] LABS: Glucose Point of Care 396 (65-105)
[2020-04-04 18:21] LABS: Glucose Point of Care 446 (65-105)
[2020-04-04 18:21] LABS: Glucose Point of Care 486 (65-105)
[2020-04-04 18:49] LABS: Lactic Acid 3.6 mmol/L (0.7-2.1)
[2020-04-04] MEDS: INSULIN HUMAN REGULAR (*BKC) 100 UNITS in SODIUM CHLORIDE 0.9% IV 99 ML 39 UNITS IV CONT (20:09)
[2020-04-04] MEDS: INSULIN HUMAN REGULAR (*BKC) 100 UNITS in SODIUM CHLORIDE 0.9% IV 99 ML 39.5 UNITS IV CONT (22:50)
[2020-04-05] VITALS (77 sets, daily range): BP systolic 62–158; BP diastolic 31–69; PULSE 74–94; RESP 18; TEMP 36.2–36.9; O2SAT 92–99
--- NOTE | 2020-04-05 | ECHO_ITS ---
Patient Info Name: Kimani Leos Age: 69 years : 1950 Gender: Male Ht: 75 in Wt: 450 lbs BSA: 3.40 m2 HR: 86 bpm BP: 147 / 65 mmHg Technical Quality: Fair Exam Date: 04/05/2020 12:03 PM Exam Location: [facility] Pulmonary Exam Room: ICU 11 Patient Status: Inpatient Admit Date: 04/03/2020 Staff Ordering Physician: Robbie Thomas MD Pipe Coverer Helper: Malena Gastelum RDCS Attending Provider: Janay Avila MD Referring Physician: Martha BRADLEY; Exam Type: CA echo doppler color flow Study Info Indications - septic shock ppm Complete two-dimensional, color flow and Doppler transthoracic echocardiogram is performed. Summary 1. Complete two-dimensional, color flow and Doppler transthoracic echocardiogram is performed. 2. Left ventricular chamber dimension is normal. 3. Left ventricular systolic function is normal, estimated at 60-65%. 4. There is mildly increased left ventricular wall thickness. 5. The left ventricular diastolic function is indeterminate. 6. Linear artifact in right ventricle suggestive of catheter(s), pacemaker lead(s), or ICD lead(s). 7. Right ventricular chamber dimension is mildly enlarged. 8. Left atrial chamber dimension is moderately enlarged. 9. Linear artifact in the right atrium suggestive of catheter(s), pacemaker lead(s), or ICD lead(s). 10. There is mild aortic valve sclerosis. 11. There is trace tricuspid valve regurgitation. 12. No pulmonary hypertension, estimated pulmonary arterial systolic pressure is 28 mmHg. 13. There is trivial pericardial effusion. Left Ventricle Tissue doppler is not performed. E/A wave not assessed. Left ventricular chamber dimension is normal. Left ventricular systolic function is normal, estimated at 60-65%. There is mildly increased left ventricular wall thickness. The left ventricular diastolic function is indeterminate. Right Ventricle Linear artifact in right ventricle suggestive of catheter(s), pacemaker lead(s), or ICD lead(s). Right ventricular chamber dimension is mildly enlarged. Right ventricular systolic function is normal. Left Atria Left atrial chamber dimension is moderately enlarged. Right Atria Linear artifact in the right atrium suggestive of catheter(s), pacemaker lead(s), or ICD lead(s). Right atrial chamber dimension is not well visualized. Aortic Valve The aortic valve is probable trileaflet. There is mild aortic valve sclerosis. There is no aortic valve stenosis. There is no aortic valve regurgitation. Pulmonic Valve There is no pulmonic regurgitation. Mitral Valve There is no mitral valve stenosis. There is no mitral valve regurgitation. Tricuspid Valve There is trace tricuspid valve regurgitation. No pulmonary hypertension, estimated pulmonary arterial systolic pressure is 28 mmHg. Pericardium/Pleural There is trivial pericardial effusion. Inferior Vena Cava Normal inferior vena cava with >50% collapse upon inspiration consistent with normal right atrial pressure, 5 mmHg. Aorta The aortic root size at the sinus of Valsalva is normal. Left Ventricular Outflow Tract Name Value Normal LVOT 2D LVOT Diameter 2.2 cm Pulmonic Valve
[2020-04-05 00:48] LABS: Glucose Point of Care 318 (65-105)
[2020-04-05 00:48] LABS: Glucose Point of Care 221 (65-105)
[2020-04-05 00:48] LABS: Glucose Point of Care 248 (65-105)
[2020-04-05 00:48] LABS: Glucose Point of Care 298 (65-105)
[2020-04-05 00:48] LABS: Glucose Point of Care 277 (65-105)
[2020-04-05 00:48] LABS: Glucose Point of Care 241 (65-105)
[2020-04-05 00:48] LABS: Glucose Point of Care 256 (65-105)
[2020-04-05] MEDS: DOPamine 400 MG/D5W 250 ML 400 MG/250 ML BAG 147 MG IV CONT ×7 (01:28→12:00)
[2020-04-05] MEDS: EPINEPHrine INJ 4 MG in DEXTROSE 5% IN WATER 250 ML 34.29 MG IV CONT ×2 (02:02→09:33)
[2020-04-05] MEDS: INSULIN HUMAN REGULAR (*BKC) 100 UNITS in SODIUM CHLORIDE 0.9% IV 99 ML 35.3 UNITS IV CONT (02:05)
[2020-04-05] MEDS: NOREPINEPHRINE BITARTRATE 16 MG in DEXTROSE 5% IN WATER 234 ML 28.13 ML IV CONT ×3 (04:51→21:36)
[2020-04-05 04:52] LABS: Alveolar/Arterial O2 Gradient 240.2 mmHg; Base Excess ABG -3.4 mEq/l (+/-2.0); Carboxyhemoglobin 0.6 % THb (0-2.0); Fractional Inspired Oxygen 50 %; HCO3 ABG 23.2 mEq/l (22.0-26.0); Methemoglobin ABG 0.2 %THb (0-1.5); Oxygen Content ABG 17.8 %vol (16.0-22.0); Oxyhemoglobin 90.9 % THb (90.0-100.0); PCO2 ABG 47.3 mmHg (35.0-45.0); PO2 ABG 63.1 mmHg (80.0-100.0); PO2 FiO2 Ratio Arterial Blood 1.26 %; Reduced Hemoglobin 8.3 %THb (0-5.0); Site Drawn ARTLINE; Total Hemoglobin 13.9 g/dL (12.0-18.0); pH ABG 7.308 (7.350-7.450)
[2020-04-05 04:53] LABS: Arterial Blood Gas PEEP 5 cmH2O; Arterial Blood Gas Vent Mode CMV; Arterial Blood Gas Ventilator rate 18 /MIN; Device VENTILATOR
[2020-04-05 04:54] LABS: Arterial Blood Gas Tidal Volume 500 ml
[2020-04-05 05:08] LABS: Hematocrit 25.3 % (42.0-52.0); Hemoglobin 9.1 g/dL (14.0-18.0); Mean Corpuscular Hemoglobin 31.7 pg (26-34); Mean Corpuscular Volume 88.2 fl (80-100); Mean Platelet Volume 10.8 fl (7.4-10.4); Platelet Count Result 174 k/mm3 (150-375); Red Blood Count 2.87 M/mm3 (4.6-6.20); Red Cell Distribution Width 12.8 % (11.5-14.5); White Blood Count 42.2 K/mm3 (4.5-10.0)
[2020-04-05] MEDS: INSULIN HUMAN REGULAR (*BKC) 100 UNITS in SODIUM CHLORIDE 0.9% IV 99 ML 31.5 UNITS IV CONT (05:08)
[2020-04-05] MEDS: CENTRAL LINE FLUSH 10 ML IV PUSH ×4 (05:11→20:31)
[2020-04-05] MEDS: HYDROCORTISONE SODIUM SUCCINATE 100 MG/2 ML VIAL IV PUSH ×3 (05:11→20:31)
[2020-04-05 05:19] LABS: INR 1.2; Partial Thromboplastin Time 22.7 SECONDS (22.3-36.8); Prothrombin Time 15.3 Seconds (11.1-14.7)
[2020-04-05 05:31] LABS: Lactic Acid Reflex 1.4 mmol/L (0.7-2.1)
[2020-04-05 05:44] LABS: Vancomycin Trough 15.7 ug/mL (10.0-20.0)
[2020-04-05 05:52] LABS: Alanine Aminotransferase 15 U/L (4-50); Albumin Level 2.2 g/dL (3.5-5.1); Alkaline Phosphatase 36 U/L (38-126); Anion Gap 5 mmol/L (8-16); Aspartate Amino Transferase 34 U/L (17-59); Bilirubin,Total 0.3 mg/dL (0.2-1.3); Blood Urea Nitrogen 79 mg/dL (9-20); Calcium 7.3 mg/dL (8.4-10.2); Carbon Dioxide 28 mmol/L (22-30); Chloride 84 mmol/L (98-107); Estimated CRCL calculation 61 ml/min; Estimated Glomerular Filt Rate 35; Glucose 172 mg/dL (75-110); Magnesium 2.1 mg/dL (1.6-2.3); Phosphorus 3.4 mg/dL (2.5-4.5); Sodium 117 mmol/L (137-145)
[2020-04-05] MEDS: SODIUM BICARBONATE 8.4% 150 MEQ in WATER, STERILE FOR INJECTION 950 ML 75 MEQ IV CONT (07:35)
[2020-04-05] MEDS: INSULIN HUMAN REGULAR (*BKC) 100 UNITS in SODIUM CHLORIDE 0.9% IV 99 ML 30 UNITS IV CONT (08:16)
--- NOTE | 2020-04-05 08:19 | WPDGIPROGNO ---
Progress Note: A&P Assessment and Plan (1) GI bleed: Code(s): K92.2 - Gastrointestinal hemorrhage, unspecified Status: Acute Assessment and Plan: Bleeding appears to have resolved. No actively at this time. Hemoglobin stable. Patient had endoscopy with clipping of possible Dieulafoy's lesion. Plan to advance diet. Continue close monitoring of hemoglobin. If active bleeding develops nuclear medicine bleeding scan may be of some benefit at that point. (2) Anemia: Code(s): D64.9 - Anemia, unspecified Status: Acute Assessment and Plan: Patient has blood loss anemia. Currently hemoglobin stable after transfusion. Would suggest continuing proton pump inhibitor for immediate future. Defer anticoagulation for several weeks if at all possible. (3) Current use of joint terminal attack controller anticoagulation: Code(s): Z79.01 - skilled nursing (current) use of anticoagulants Status: Acute (4) Paroxysmal atrial fibrillation: Code(s): I48.0 - Paroxysmal atrial fibrillation Status: Acute (5) Insulin dependent type 2 diabetes mellitus: Code(s): E11.9 - Type 2 diabetes mellitus without complications; Z79.4 - skilled nursing (current) use of insulin Status: Acute Subjective Date/time seen: 04/05/20 08:[address] Garg's absence today. No additional bleeding reported overnight. Hemoglobin has remained stable. No abdominal pain reported. Exam Narrative: Exam Narrative: Abdomen soft bowel sounds present nontender no organomegaly evident. Objective Data Vital Signs Vital Signs: Vital Signs - 24 hr 04/04/20 08:25 04/04/20 08:27 04/04/20 08:33 Temperature Pulse Rate 77 83 80 Respiratory Rate 19 Blood Pressure 76/51 L 75/49 L Pulse Oximetry 04/04/20 08:43 04/04/20 09:00 04/04/20 09:15 Temperature Pulse Rate 75 Respiratory Rate 19 Blood Pressure 76/52 L 76/52 L Pulse Oximetry 04/04/20 09:28 04/04/20 09:35 04/04/20 09:37 Temperature Pulse Rate 75 Respiratory Rate Blood Pressure 77/50 L 78/53 L 78/53 L Pulse Oximetry 04/04/20 10:00 04/04/20 10:05 04/04/20 10:34 Temperature Pulse Rate 77 Respiratory Rate 15 Blood Pressure 103/57 L 81/54 L 84/48 L Pulse Oximetry 97 04/04/20 10:35 04/04/20 11:10 04/04/20 11:14 Temperature Pulse Rate 75 Respiratory Rate Blood Pressure 81/51 L 89/55 L Pulse Oximetry 95 04/04/20 11:16 04/04/20 11:41 04/04/20 11:42 Temperature Pulse Rate 77 Respiratory Rate Blood Pressure 91/60 L 99/70 L 102/53 L Pulse Oximetry 04/04/20 11:44 04/04/20 12:00 04/04/20 12:38 Temperature 97.3 F L Pulse Rate 75 75 Respiratory Rate 15 15 Blood Pressure 115/57 L 93/48 L Pulse Oximetry 93 04/04/20 12:40 04/04/20 12:46 04/04/20 13:45 Temperature Pulse Rate 75 75 Respiratory Rate 15 Blood Pressure 95/49 L Pulse Oximetry 94 04/04/20 14:00 04/04/20 16:00 04/04/20 16:40 Temperature 97.3 F L Pulse Rate 75 77 75 Respiratory Rate 18 18 Blood Pressure 104/51 L 112/52 L Pulse Oximetry 96 94 93 04/04/20 17:55 04/04/20 17:59 04/04/20 18:00 Temperature Pulse Rate 75 75 77 Respiratory Rate 18 Blood Pressure 112/49 L 110/49 L 116/52 L Pulse Oximetry 92 04/04/20 18:10 04/04/20 18:11 04/04/20 18:14 Temperature Pulse Rate 75 75 Respiratory Rate Blood Pressure 110/49 L 112/50 L 114/50 L Pulse Oximetry 04/04/20 18:22 04/04/20 18:23 04/04/20 19:41 Temperature Pulse Rate 75 75 75 Respiratory Rate 18 18 Blood Pressure 115/51 L Pulse Oximetry 04/04/20 19:50 04/04/20 20:00 04/04/20 21:19 Temperature 98.9 F Pulse Rate 75 78 78 Respiratory Rate 18 Blood Pressure 98/46 L 114/52 L Pulse Oximetry 91 91 04/04/20 21:35 04/04/20 22:00 04/04/20 23:25 Temperature Pulse Rate 75 75 75 Respiratory Rate 18 Blood Pressure 114/51 L 118/52 L 109/48 L Pulse Oximetry 92 04/04/20 23
[2020-04-05] MEDS: FENTANYL 2,500MCG/NS250ML(*CRX 2,500 MCG/250 ML BAG 10 MCG IV CONT (09:19)
[2020-04-05] MEDS: SILVERGEL (ELTA) 45 ML 1 APPLIC TOPICAL (09:23)
--- NOTE | 2020-04-05 09:32 | WPDINTPN ---
Progress Note: A&P Assessment and Plan (1) Shock: Code(s): R57.9 - Shock, unspecified Status: Acute Assessment and Plan: Patient presented with syncope, maroon stools, dark colored emesis, anemia. Source could be -patient received IV fluids and multiple blood products despite which he remains on epinephrine, Levophed, vasopressin, phenylephrine, dopamine -lactic acid normalized -continue maintenance IV fluids, will discontinue bicarb infusion and place patient on normal saline - Arterial line placed on 04/04 -wound culture 04/03 growing gram-positive cocci in clusters -blood cultures X2 -continue vancomycin and imipenem -continue stress dose steroids at this time (2) GI bleed: Code(s): K92.2 - Gastrointestinal hemorrhage, unspecified Status: Acute Assessment and Plan: Patient with GI bleed, status post EGD 04/04, mild duodenitis, Dieulafoy's lesion, clipping x1 to control hemorrhage -continue Protonix 80 mg IV q.12 hours -GI following closely -will continue to monitor H&H (3) Syncope: Code(s): R55 - Syncope and collapse Status: Acute Assessment and Plan: Syncope could be related to hypotension, GI bleed, shock -troponin negative times x1 (4) Insulin dependent type 2 diabetes mellitus: Code(s): E11.9 - Type 2 diabetes mellitus without complications; Z79.4 - 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 Status: Acute Assessment and Plan: patient with hyperglycemia likely related to stress -patient on insulin infusion (5) Paroxysmal atrial fibrillation: Code(s): I48.0 - Paroxysmal atrial fibrillation Status: Acute Assessment and Plan: Proximal AFib currently paced rhythm rate controlled, continue to monitor -patient was on Eliquis at home which is currently on hold (6) Anemia: Code(s): D64.9 - Anemia, unspecified Status: Acute Assessment and Plan: Anemia on admission, hemoglobin 9.8 this morning after receiving multiple blood products -hemoglobin remains stable -continue to monitor H&H Q 6 hours (7) NURY (acute kidney injury): Code(s): N17.9 - Acute kidney failure, unspecified Status: Acute Assessment and Plan: Acute kidney injury will likely related to shock, hypovolemia, ATN infection -adequately fluid-resuscitated, also received blood products -on multiple pressors adequate mean arterial pressures for adequate end organ perfusion -urine output much improved, creatinine trending down -continue monitor urine output, renal function electrolytes (8) Hyponatremia: Code(s): E87.1 - Hypo-osmolality and hyponatremia Status: Acute Assessment and Plan: Hyponatremia likely related to multiple infusions in D5W -discussed with pharmacy, will switch as many drips as possible to normal saline -continue normal saline maintenance IV fluids -nephrology to evaluate Additional Plan Discussed with and daughter and updated them with patient's condition and plan of care. I updated them regarding patient being on 5 vasopressors, is in a state of shock, I told him that patient is very critically. Discussed code status to which they requested for him being a full code and they wanted everything to be done to keep him alive. Code status: Full code Critical care time spent: 36 minutes Condition: Very critical and guarded Due to a high probability of clinically significant, life threatening deterioration, the patient required my highest level of preparedness to intervene emergently and I personally spent this critical care time directly and personally managing the patient. This critical care time included obtaining a history; examining the patient; pulse oximetry; ordering and review of studies; arranging urgent treatment with development of a management plan; evaluation of patient's response to treatment; frequent reassessment; and discussions with other providers. It was exclusive of separately billabl
[2020-04-05] MEDS: VANCOMYCIN HCL 2,000 MG in SODIUM CHLORIDE 0.9% IV 500 ML 250 MG IVPB (10:04)
[2020-04-05] MEDS: PANTOPRAZOLE SODIUM IV 40 MG VIAL 80 MG IV PUSH ×2 (10:12→20:30)
[2020-04-05] MEDS: VASOPRESSIN INJ 100 UNITS in DEXTROSE 5% 95 ML IV CONT (10:43)
--- NOTE | 2020-04-05 11:39 | PCDIET ---
Nutrition Follow-Up Complete: Nutrition Diagnosis: Inadequate oral intake related to GI bleeding as evidenced by NPO status. Nutrition Goal: Patient to meet estimated nutritional needs. Goal not met. Patient remains NPO on vent with decreasing pressors today. Recommend enteral feedings, once medically appropriate. Last recorded weight is 204.3 kg which is increased from last review. +I/O. Bowel Motility: Last documented BM on 04/03/20 x 1. Labs Reviewed: Hgb (9.1), Hct (25.3), Glu (172), BUN (79), Cr (1.9), Na (117), Alb (2.2), Valente Ca (8.74) Meds Noted: Dopamine, Fentanyl, Solu Cortef, Imipenem, IV Aspart, Versed, Levophed, Protonix, Vancomycin, Vasopressin Additional Notes: Bilateral feet with ulcers, per nursing. Will continue to monitor with same goal. Nutrition Monitoring and Evaluation: Follow up every 3 days.
[2020-04-05] MEDS: INSULIN HUMAN REGULAR (*BKC) 100 UNITS in SODIUM CHLORIDE 0.9% IV 99 ML 29 UNITS IV CONT (12:01)
[2020-04-05 12:07] LABS: Glucose Point of Care 161 (65-105)
[2020-04-05 12:07] LABS: Glucose Point of Care 167 (65-105)
[2020-04-05 12:07] LABS: Glucose Point of Care 207 (65-105)
[2020-04-05 12:07] LABS: Glucose Point of Care 190 (65-105)
[2020-04-05 12:07] LABS: Glucose Point of Care 165 (65-105)
[2020-04-05 12:07] LABS: Glucose Point of Care 150 (65-105)
[2020-04-05 12:07] LABS: Glucose Point of Care 181 (65-105)
[2020-04-05 12:07] LABS: Glucose Point of Care 208 (65-105)
[2020-04-05 12:07] LABS: Glucose Point of Care 180 (65-105)
[2020-04-05 12:07] LABS: Glucose Point of Care 189 (65-105)
--- NOTE | 2020-04-05 12:36 | WPDGIPROGNO ---
Subjective Date/time seen: 04/05/20 12:36 Patient on ventilator. Patient is sedated. Heart rate rhythm regular. Lungs relatively clear anteriorly. Abdomen is soft. Extremities obese with venous stasis. Wound on left foot. Impression: No significant evidence of GI bleeding at this time. Hypotension secondary to above/sepsis. Left foot wound infection. NURY. Hyponatremia. Anemia. This is secondary to GI blood loss. Coagulopathy. Adenomatous colon polyps. History of post polypectomy bleeding. Morbid obesity. Atrial fibrillation status post pacemaker placement. HTN. HLD. DM. Neuropathy. Venous stasis changes. Recommendation: Continue PPI. Please call if any further assistance needed. Review of Systems Review of Systems: ROS unobtainable: Yes unobtainable due to endotracheal tube Objective Data Vital Signs Vital Signs: Vital Signs - 24 hr 04/04/20 12:38 04/04/20 12:40 04/04/20 12:46 Temperature Pulse Rate 75 75 Respiratory Rate 15 15 Blood Pressure 95/49 L Pulse Oximetry 04/04/20 13:45 04/04/20 14:00 04/04/20 16:00 Temperature 36.3 C L Pulse Rate 75 75 77 Respiratory Rate 18 18 Blood Pressure 104/51 L 112/52 L Pulse Oximetry 94 96 94 04/04/20 16:40 04/04/20 17:55 04/04/20 17:59 Temperature Pulse Rate 75 75 75 Respiratory Rate Blood Pressure 112/49 L 110/49 L Pulse Oximetry 93 04/04/20 18:00 04/04/20 18:10 04/04/20 18:11 Temperature Pulse Rate 77 75 Respiratory Rate 18 Blood Pressure 116/52 L 110/49 L 112/50 L Pulse Oximetry 92 04/04/20 18:14 04/04/20 18:22 04/04/20 18:23 Temperature Pulse Rate 75 75 75 Respiratory Rate 18 18 Blood Pressure 114/50 L Pulse Oximetry 04/04/20 19:41 04/04/20 19:50 04/04/20 20:00 Temperature 37.2 C Pulse Rate 75 75 78 Respiratory Rate 18 Blood Pressure 115/51 L 98/46 L 114/52 L Pulse Oximetry 91 04/04/20 21:19 04/04/20 21:35 04/04/20 22:00 Temperature Pulse Rate 78 75 75 Respiratory Rate 18 Blood Pressure 114/51 L 118/52 L Pulse Oximetry 91 92 04/04/20 23:25 04/04/20 23:41 04/05/20 00:00 Temperature 36.9 C Pulse Rate 75 76 75 Respiratory Rate 18 Blood Pressure 109/48 L 117/56 L Pulse Oximetry 93 93 04/05/20 00:40 04/05/20 00:41 04/05/20 01:28 Temperature Pulse Rate 74 74 75 Respiratory Rate Blood Pressure 117/56 L 117/54 L 133/58 L Pulse Oximetry 04/05/20 02:00 04/05/20 02:02 04/05/20 02:34 Temperature Pulse Rate 79 75 77 Respiratory Rate 18 Blood Pressure 124/57 L 133/58 L Pulse Oximetry 93 93 04/05/20 02:39 04/05/20 02:57 04/05/20 03:06 Temperature Pulse Rate 77 75 77 Respiratory Rate 18 Blood Pressure 140/60 138/59 L Pulse Oximetry 04/05/20 04:00 04/05/20 04:41 04/05/20 04:50 Temperature 36.7 C Pulse Rate 77 76 77 Respiratory Rate 18 Blood Pressure 138/59 L 119/55 L Pulse Oximetry 92 92 04/05/20 04:51 04/05/20 06:00 04/05/20 06:36 Temperature Pulse Rate 77 75 75 Respiratory Rate 18 Blood Pressure 125/57 L 143/62 H 123/58 L Pulse Oximetry 92 04/05/20 07:55 04/05/20 08:16 04/05/20 08:21 Temperature Pulse Rate 76 75 75 Respiratory Rate Blood Pressure 143/62 H 130/49 L Pulse Oximetry 97 04/05/20 09:15 04/05/20 09:19 04/05/20 09:27 Temperature Pulse Rate 85 78 75 Respiratory Rate 18 Blood Pressure 148/67 H 147/65 H Pulse Oximetry 04/05/20 09:33 04/05/20 09:35 04/05/20 09:59 Temperature Pulse Rate 75 77 75 Respiratory Rate Blood Pressure 147/65 H 147/65 H 152/67 H Pulse Oximetry 04/05/20 10:07 04/05/20 10:10 04/05/20 10:43 Temperature Pulse Rate 75 75 75 Respiratory Rate Blood Pressure 152/67 H 158/69 H 150/66 H Pulse Oximetry 04/05/20 11:15 04/05/20 11:50 04/05/20 12:00 Temperature Pulse Rate 75 75 Respiratory Rate Blood Pressure 137/56 L 116/51 L 116/51 L Pulse Oximetry
[2020-04-05 12:57] LABS: Glucose Point of Care 148 (65-105)
--- NOTE | 2020-04-05 13:38 | PM.CNNEP ---
Assessment and Plan Assessment and plan (1) Hyponatremia: Code(s): E87.1 - Hypo-osmolality and hyponatremia Status: Acute Assessment and Plan: The patient's sodium level is very low. He probably has some underlying free water excretion defect judging from how his sodium was low in October. Etiology for this is unclear. X-rays negative, no history of cancer, no obvious medication issues, and TSH is okay. Will check a cortisol level. Currently he is lower because of the large amount of free water he is getting. This has been tempered some because as many drips as possible are being switched to normal saline however some drips have to stay in D5W. He is making a lot of urine and hopefully can excrete some of the free water were giving him. However we may have to give him 3% saline to keep balanced. I will check another sodium now and see how things are because Dr Thomas made those adjustments this morning. If the sodium levels lower I will give a round of 3% and recheck the sodium later. (2) NURY (acute kidney injury): Code(s): N17.9 - Acute kidney failure, unspecified Status: Acute Assessment and Plan: The patient has an elevated creatinine. This is most likely because of his shock and pressors. His creatinine has improved so we do not need to check a renal ultrasound now. (3) Shock: Code(s): R57.9 - Shock, unspecified Status: Acute Assessment and Plan: The patient has shock. He blood some. He could have Cardiac issues. An echocardiogram has been ordered. Sepsis is always a possibility as well. He does have soon most growing in a foot wound. Blood and urine cultures are negative so far. He is on antibiotics. 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 (5) GI bleed: Code(s): K92.2 - Gastrointestinal hemorrhage, unspecified Status: Acute Assessment and Plan: Hemoglobin is 9.1. This will be checked frequently. (6) Paroxysmal atrial fibrillation: Code(s): I48.0 - Paroxysmal atrial fibrillation Status: Acute History of Present Illness Reason for Consult Consult date: 12/04/20 Chief Complaint Chief complaint: Rectal bleeding, syncope. History of Present Illness Narrative: Dated is a unfortunate 69-year-old gentleman who has hyponatremia and renal failure. This patient has hypertension, diabetes, hyperlipidemia, permanent pacemaker, AFib status post cardiac ablation, tubulovillous adenoma, and obesity. The patient's problem started a few weeks ago when he developed COVID. From this until the 03 of April when he developed rectal bleeding and syncope. He was admitted to the hospital and transferred to the ICU. His blood pressure had dropped. He was intubated and placed on pressors. He has been very unstable requiring 5 different pressors to work. His sodium level started off a little bit low but then dropped quite a bit in the last 2 days so renal consultation was requested. The patient's sodium has been low in the past mildly. Back in October it was 135. On admission this time it was 123. Yesterday was 121 and today it is 117. He is getting multiple drips with D5W as the vehicle. Dr. Thomas recently switched as many of the IV fluids and IV piggybacks to normal saline as possible. He is making some urine. His blood sugars are running Only mildly high. TSH is okay. His anion gap is 5 and his albumin is 2.2 He is not on narcotics nor diuretics nor antidepressants, and he was not as an outpatient either. There is no history of cancer nor Signs of cancer on his x-rays. Patient also had an elevated creatinine when he came in and was very unstable. His creatinine has improved but not to normal. COUNT INCLUDES THE [facility] Past Medical History Me
[2020-04-05 13:55] LABS: Alanine Aminotransferase 13 U/L (4-50); Albumin Level 2.1 g/dL (3.5-5.1); Alkaline Phosphatase 42 U/L (38-126); Anion Gap 5 mmol/L (8-16); Aspartate Amino Transferase 25 U/L (17-59); Bilirubin,Total 0.7 mg/dL (0.2-1.3); Blood Urea Nitrogen 66 mg/dL (9-20); Calcium 6.8 mg/dL (8.4-10.2); Carbon Dioxide 28 mmol/L (22-30); Chloride 83 mmol/L (98-107); Estimated CRCL calculation 102 ml/min; Estimated Glomerular Filt Rate > 60; Glucose 229 mg/dL (75-110); Sodium 116 mmol/L (137-145)
[2020-04-05] MEDS: DOPamine 400 MG/D5W 250 ML 400 MG/250 ML BAG 132.3 MG IV CONT (14:00)
[2020-04-05] MEDS: SODIUM CHLORIDE 3% 500 ML 100 ML IV CONT (15:35)
[2020-04-05] MEDS: DOPamine 400 MG/D5W 250 ML 400 MG/250 ML BAG 110.25 MG IV CONT (16:05)
--- NOTE | 2020-04-05 17:13 | PM.IMPN ---
Progress Note: A&P Assessment and Plan (1) GI bleed: Code(s): K92.2 - Gastrointestinal hemorrhage, unspecified Status: Acute Assessment and Plan: 04/05/20 17:13 Patient is 69-year-old male with history of work proximal atrial fibrillation status post ablation and on Xarelto, insulin-dependent diabetes, hypertension hyperlipidemia he had been seen GI and had a colonoscopy due to multiple adenomatous polyp and had developed polyectomy bleeding, patient was recently diagnosed with COVID-19 he was started on dexamethasone patient stated few days after taking dexamethasone he developed abdominal pain and symptoms were getting worse he started to have rectal bleeding and presented emergency department further evaluation, he was in shock with with hematemesis melena and anemia patient was transferred started on IV hydration and placed on several pressors Levophed, vasopressin, phenylephrine and dopamine, today patient blood pressure is trending, currently patient on vent unable to provide detailed review of symptom, he was seen by GI had a EGD on 04/04 which showed mild duodenitis and Dieulafoy's hemostatic clipx1 was applied to help control the bleeding. It seems dexamethasone may have irritated patient stomach line resulting in bleeding and as patient is on Xarelto which is being held, Patient is started on PPI, will transfuse as needed, upon arrival patient was hypotension, leukocytosis, and elevated lactic acid level patient qualifies for sepsis it could be infectious versus stress from bleeding and shortness of breath, patient does have wound in his right lower extremity possibly source of infection, patient being treated with antibiotic, patient also has developed hyponatremia seen by nephrology suspect patient is free fluid overloaded some of the drip and switch to normal saline will continue to monitor, will continue to monitor 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 (2) Acute blood loss anemia: Code(s): D62 - Acute posthemorrhagic anemia Status: Acute Assessment and Plan: Most likely secondary to upper GI bleed patient had a EGD and was treated now on PPI (3) Syncope: Code(s): R55 - Syncope and collapse Status: Acute Assessment and Plan: Most likely due to anemia will continue to monitor once clinically stable will have a PT OT evaluate the patient (4) Severe sepsis: Code(s): A41.9 - Sepsis, unspecified organism; R65.20 - Severe sepsis without septic shock Status: Acute Assessment and Plan: Plan is above (5) Hyponatremia: Code(s): E87.1 - Hypo-osmolality and hyponatremia Status: Acute Assessment and Plan: Most likely secondary to dehydration due to abdominal pain and poor p.o. intake, will gently hydrate the patient and monitor (6) Cellulitis of foot, right: Code(s): L03.115 - Cellulitis of right lower limb Status: Acute Assessment and Plan: Most likely diabetic ulcer patient being treated with imipenem and vancomycin once clinically stable will have wound team evaluate the patient entry (7) Paroxysmal atrial fibrillation: Code(s): I48.0 - Paroxysmal atrial fibrillation Status: Acute Assessment and Plan: Rate is controlled anticoagulation on hold due to GI bleed (8) Hypertension: Code(s): I10 - Essential (primary) hypertension Status: Acute Assessment and Plan: Continue home regimen and monitor (9) Type 2 diabetes mellitus: Code(s): E11.9 - Type 2 diabetes mellitus without complications Status: Inactive (10) Insulin dependent type 2 diabetes mellitus: Code(s): E11.9 - Type 2 diabetes mellitus without complications; 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
[2020-04-05] MEDS: INSULIN HUMAN REGULAR (*BKC) 100 UNITS in SODIUM CHLORIDE 0.9% IV 99 ML 16 UNITS IV CONT (17:25)
--- NOTE | 2020-04-05 18:08 | WPDINFPN2 ---
Progress Note: A&P Assessment and Plan (1) Shock: Code(s): R57.9 - Shock, unspecified Status: Acute Assessment and Plan: 1. Shock 2. Severe hyponatremia 3. R foot wound, exam not impressive for soft tissue nor deep space infection REC Imipenem #3. Stop Vanc. Further imaging once he can provide history. Subjective Date/time seen: 04/05/20 18:08 Objective Data Vital Signs Vital Signs: Vital Signs - 24 hr 04/04/20 18:10 04/04/20 18:11 04/04/20 18:14 Temperature Pulse Rate 75 75 Respiratory Rate Blood Pressure 110/49 L 112/50 L 114/50 L Pulse Oximetry 04/04/20 18:22 04/04/20 18:23 04/04/20 19:41 Temperature Pulse Rate 75 75 75 Respiratory Rate 18 18 Blood Pressure 115/51 L Pulse Oximetry 04/04/20 19:50 04/04/20 20:00 04/04/20 21:19 Temperature 37.2 C Pulse Rate 75 78 78 Respiratory Rate 18 Blood Pressure 98/46 L 114/52 L Pulse Oximetry 91 91 04/04/20 21:35 04/04/20 22:00 04/04/20 23:25 Temperature Pulse Rate 75 75 75 Respiratory Rate 18 Blood Pressure 114/51 L 118/52 L 109/48 L Pulse Oximetry 92 04/04/20 23:41 04/05/20 00:00 04/05/20 00:40 Temperature 36.9 C Pulse Rate 76 75 74 Respiratory Rate 18 Blood Pressure 117/56 L 117/56 L Pulse Oximetry 93 93 04/05/20 00:41 04/05/20 01:28 04/05/20 02:00 Temperature Pulse Rate 74 75 79 Respiratory Rate 18 Blood Pressure 117/54 L 133/58 L 124/57 L Pulse Oximetry 93 04/05/20 02:02 04/05/20 02:34 04/05/20 02:39 Temperature Pulse Rate 75 77 77 Respiratory Rate Blood Pressure 133/58 L 140/60 Pulse Oximetry 93 04/05/20 02:57 04/05/20 03:06 04/05/20 04:00 Temperature 36.7 C Pulse Rate 75 77 77 Respiratory Rate 18 18 Blood Pressure 138/59 L 138/59 L Pulse Oximetry 92 04/05/20 04:41 04/05/20 04:50 04/05/20 04:51 Temperature Pulse Rate 76 77 77 Respiratory Rate Blood Pressure 119/55 L 125/57 L Pulse Oximetry 92 04/05/20 06:00 04/05/20 06:36 04/05/20 07:55 Temperature Pulse Rate 75 75 76 Respiratory Rate 18 Blood Pressure 143/62 H 123/58 L Pulse Oximetry 92 97 04/05/20 08:00 04/05/20 08:16 04/05/20 08:21 Temperature 36.4 C Pulse Rate 76 75 75 Respiratory Rate 18 Blood Pressure 140/61 143/62 H 130/49 L Pulse Oximetry 96 04/05/20 08:30 04/05/20 09:00 04/05/20 09:15 Temperature Pulse Rate 75 81 85 Respiratory Rate 18 18 Blood Pressure 138/58 L 144/65 H 148/67 H Pulse Oximetry 93 93 04/05/20 09:19 04/05/20 09:27 04/05/20 09:30 Temperature Pulse Rate 78 75 76 Respiratory Rate 18 18 Blood Pressure 147/65 H 146/65 H Pulse Oximetry 93 04/05/20 09:33 04/05/20 09:35 04/05/20 09:59 Temperature Pulse Rate 75 77 75 Respiratory Rate Blood Pressure 147/65 H 147/65 H 152/67 H Pulse Oximetry 04/05/20 10:00 04/05/20 10:07 04/05/20 10:10 Temperature Pulse Rate 75 75 75 Respiratory Rate 18 Blood Pressure 157/69 H 152/67 H 158/69 H Pulse Oximetry 95 04/05/20 10:30 04/05/20 10:43 04/05/20 11:00 Temperature Pulse Rate 75 75 79 Respiratory Rate 18 18 Blood Pressure 152/66 H 150/66 H 140/64 Pulse Oximetry 95 97 04/05/20 11:15 04/05/20 11:22 04/05/20 11:30 Temperature Pulse Rate 75 78 Respiratory Rate 18 Blood Pressure 137/56 L 126/54 L Pulse Oximetry 98 97 04/05/20 11:50 04/05/20 12:00 04/05/20 12:16 Temperature 36.6 C Pulse Rate 75 75 85 Respiratory Rate 18 Blood Pressure 116/51 L 87/39 L 121/56 L Pulse Oximetry 94 04/05/20 12:30 04/05/20 13:00 04/05/20 13:25 Temperature Pulse Rate 94 76 Respiratory Rate 18 18 Blood Pressure 114/56 L 110/49 L 120/60 Pulse Oximetry 93 97 04/05/20 13:30 04/05/20 13:38 04/05/20 14:00 Temperature Pulse Rate 77 75 75 Respiratory Rate 18 18 Blood Pressure 120/52 L 118/52 L 62/31 L Pulse Oximetry 95 97 04/05/20 14:19 04/05/20 14:20 04/05/20 14:41 Temperature Pulse Rate 7
[2020-04-05] MEDS: DOPamine 400 MG/D5W 250 ML 400 MG/250 ML BAG 88.2 MG IV CONT (18:37)
[2020-04-05 18:42] LABS: Glucose Point of Care 128 (65-105)
[2020-04-05 18:42] LABS: Glucose Point of Care 117 (65-105)
[2020-04-05 18:42] LABS: Glucose Point of Care 134 (65-105)
[2020-04-05 18:42] LABS: Glucose Point of Care 117 (65-105)
[2020-04-05 18:42] LABS: Glucose Point of Care 130 (65-105)
[2020-04-05 18:42] LABS: Glucose Point of Care 118 (65-105)
[2020-04-05] MEDS: DOPamine 400 MG/D5W 250 ML 400 MG/250 ML BAG 80.85 MG IV CONT (18:57)
--- NOTE | 2020-04-05 19:01 | CONS_ITS ---
DATE OF CONSULTATION: 04/05/2020 REASON FOR CONSULTATION: Right foot ulcer and shock. HISTORY OF PRESENT ILLNESS: A 69-year-old male, who cannot provide any history. He was admitted 2 days ago with GI hemorrhage and melena. This is ceased apparently. However, he has had shock requiring multiple vasopressors and mechanical ventilation. He has been given imipenem and vancomycin due to concern over systemic infection. Consultation requested today. He has not required any surgical intervention. He has had a right femoral arterial line placed with a right IJ triple-lumen catheter. His foot was noted to have an ulceration on the right side and also on the left and there was a concern over this being source of septic shock. The patient did have upper endoscopy performed. Duodenitis was noted. No blood. ALLERGIES: DOXYCYCLINE, CLINDAMYCIN, BOTH WERE CAUSED A RASH. OTHERS NOT PERTINENT. HABITS: No alcohol. No tobacco. PRESENT MEDICATIONS: He is on stress dose of steroids, not on steroids at home. PAST MEDICAL HISTORY: Permanent pacemaker, carpal tunnel surgery, colonoscopy, arthroscopic knee surgery, morbid obesity, PAF, type 2 diabetes mellitus, hypertension, hyperlipidemia, peripheral neuropathy, DJD, colon polyps, and gallstones. REVIEW OF SYSTEMS: 14-point review otherwise negative, though not obtainable from the patient directly due to intubated status. FAMILY HISTORY: Not pertinent to his present illness. SOCIAL HISTORY: He is semi retired. Lives locally. . No family at the bedside. PHYSICAL EXAMINATION: GENERAL: This is an elderly male, who appears younger than his actual age, on the ventilator. No respiratory distress. VITAL SIGNS: Since arrival, he has been afebrile, pulse 77, 98% saturation, blood pressure 143/60, and respiratory rate 18. He is on multiple vasopressors. SKIN: Warm and dry. No rashes. No ulcerations. EENT: Conjunctivae are clear. Oral exam compromised by tubes, but no evident lesions. NECK: Without meningismus. Line in place, right side. LUNGS: Diminished breath sounds, otherwise clear to auscultation and percussion. Breath sounds are vesicular. CARDIAC: Regular rate and rhythm. No murmurs or gallops. Pulses 1+ and equal. ABDOMEN: Massively obese. He has no fungal dermatitis over the inguinal and lower abdominal wall. No masses are palpable, but his obesity makes assessment suspect. : Boone catheter draining clear yellow urine. EXTREMITIES: 3+ pedal edema. He has a partial-thickness ulcer over the plantar aspect of the left foot and a 1 cm deeper ulcer, plantar lateral right foot. There is no odor. There is no surrounding erythema, abnormal contour. His legs have no evidence of crepitus, lymphangitis, masses, abnormal contour. RADIOLOGY: Foot x-ray shows osteoarthritis changes only. Chest x-ray with hiatal hernia, suspected diaphragmatic paralysis. No confluent infiltrates. LABORATORY DATA: Blood cultures, 4 sets total and no growth so far. Wound culture had Pseudomonas to be identified further. Gram stain, gram-positive cocci in clusters. His white blood cell count in October here was all slightly high, now higher and is at 42.4 now, hemoglobin 9.1, platelets are 174. Blood gases 7.31, 47, 63, 90%. Sodium 116, chloride 83, his anion gap is 5, BUN 66, creatinine 1.1, down from 1.9, glucose 229. Hemoglobin A1c 6.8%. Urinalysis, no evidence of infection. His Coronavirus assay, negative in October. ASSESSMENT: 1. Shock, consider cardiogenic, hemorrhagic, or infectious in the etiology. He does have an echo that shows normal LV function. Potential infectious causes could include lower GI, skin, soft tissue, bone, joint. 2. Foot ulcer. Pseudomonas growing, but his exam and foot x-ray ar
[2020-04-05] MEDS: SODIUM CHLORIDE 3% 100 ML IV CONT (20:23)
[2020-04-05 21:47] LABS: Glucose Point of Care 99 (65-105)
[2020-04-05 21:47] LABS: Glucose Point of Care 87 (65-105)
[2020-04-05 21:47] LABS: Glucose Point of Care 109 (65-105)
[2020-04-05] MEDS: DOPamine 400 MG/D5W 250 ML 400 MG/250 ML BAG 58.8 MG IV CONT (22:09)
[2020-04-05 22:22] LABS: Alanine Aminotransferase 15 U/L (4-50); Albumin Level 2.1 g/dL (3.5-5.1); Alkaline Phosphatase 48 U/L (38-126); Anion Gap 4 mmol/L (8-16); Aspartate Amino Transferase 27 U/L (17-59); Bilirubin,Total 0.3 mg/dL (0.2-1.3); Blood Urea Nitrogen 58 mg/dL (9-20); Calcium 7.1 mg/dL (8.4-10.2); Carbon Dioxide 28 mmol/L (22-30); Chloride 88 mmol/L (98-107); Estimated CRCL calculation 94 ml/min; Estimated Glomerular Filt Rate 60; Glucose 175 mg/dL (75-110); Potassium 4.7 mmol/L (3.4-5.0); Sodium 120 mmol/L (137-145)
[2020-04-05] MEDS: INSULIN HUMAN REGULAR (*BKC) 100 UNITS in SODIUM CHLORIDE 0.9% IV 99 ML 27.7 UNITS IV CONT (23:23)
[2020-04-05 23:45] LABS: Glucose Point of Care 177 (65-105)
[2020-04-05 23:45] LABS: Glucose Point of Care 159 (65-105)
[2020-04-06] VITALS (33 sets, daily range): BP systolic 96–136; BP diastolic 44–79; PULSE 75–80; RESP 18; TEMP 35.4–36.7; O2SAT 97–100
[2020-04-06] MEDS: INSULIN HUMAN REGULAR (*BKC) 100 UNITS in SODIUM CHLORIDE 0.9% IV 99 ML 24.6 UNITS IV CONT (01:00)
[2020-04-06] MEDS: DOPamine 400 MG/D5W 250 ML 400 MG/250 ML BAG 29.4 MG IV CONT (03:18)
[2020-04-06] MEDS: CENTRAL LINE FLUSH 10 ML IV PUSH ×2 (05:15→20:07)
[2020-04-06] MEDS: FENTANYL 2,500MCG/NS250ML(*CRX 2,500 MCG/250 ML BAG 10 MCG IV CONT (05:15)
[2020-04-06] MEDS: HYDROCORTISONE SODIUM SUCCINATE 100 MG/2 ML VIAL IV PUSH (05:15)
[2020-04-06 05:23] LABS: Alveolar/Arterial O2 Gradient 161.8 mmHg; Base Excess ABG 1.8 mEq/l (+/-2.0); Carboxyhemoglobin 0.3 % THb (0-2.0); Fractional Inspired Oxygen 40 %; Oxygen Content ABG 13.9 %vol (16.0-22.0); Oxygen Saturation ABG 94.1 % (95.0-100.0); Oxyhemoglobin 93.4 % THb (90.0-100.0); PCO2 ABG 45.5 mmHg (35.0-45.0); PO2 ABG 71.1 mmHg (80.0-100.0); PO2 FiO2 Ratio Arterial Blood 1.78 %; Reduced Hemoglobin 6.3 %THb (0-5.0); Total Hemoglobin 10.5 g/dL (12.0-18.0); pH ABG 7.392 (7.350-7.450)
[2020-04-06 05:24] LABS: Arterial Blood Gas Vent Mode CMV; Arterial Blood Gas Ventilator rate 18 /MIN; Device VENTILATOR; Modified Allen's Test Unable to perform; Site Drawn RIGHT RADIAL
[2020-04-06 05:25] LABS: Arterial Blood Gas PEEP 5 cmH2O; Arterial Blood Gas Tidal Volume 500 ml
[2020-04-06 05:58] LABS: Glucose Point of Care 148 (65-105)
[2020-04-06 05:58] LABS: Glucose Point of Care 80 (65-105)
[2020-04-06 05:58] LABS: Glucose Point of Care 147 (65-105)
[2020-04-06 05:58] LABS: Glucose Point of Care 155 (65-105)
[2020-04-06 05:58] LABS: Glucose Point of Care 127 (65-105)
[2020-04-06 05:58] LABS: Glucose Point of Care 111 (65-105)
[2020-04-06 06:02] LABS: Hematocrit 23.7 % (42.0-52.0); Hemoglobin 8.3 g/dL (14.0-18.0); Mean Corpuscular Hemoglobin 31.6 pg (26-34); Mean Corpuscular Volume 90.1 fl (80-100); Mean Platelet Volume 11.1 fl (7.4-10.4); Platelet Count Result 171 k/mm3 (150-375); Red Blood Count 2.63 M/mm3 (4.6-6.20); Red Cell Distribution Width 13.2 % (11.5-14.5); White Blood Count 31.4 K/mm3 (4.5-10.0)
[2020-04-06 06:14] LABS: Lactic Acid Reflex 1.1 mmol/L (0.7-2.1)
[2020-04-06 06:17] LABS: Alanine Aminotransferase 16 U/L (4-50); Albumin Level 2.2 g/dL (3.5-5.1); Alkaline Phosphatase 55 U/L (38-126); Anion Gap 3 mmol/L (8-16); Aspartate Amino Transferase 26 U/L (17-59); Bilirubin,Total 0.3 mg/dL (0.2-1.3); Blood Urea Nitrogen 56 mg/dL (9-20); Calcium 7.4 mg/dL (8.4-10.2); Carbon Dioxide 32 mmol/L (22-30); Chloride 88 mmol/L (98-107); Estimated CRCL calculation 116 ml/min; Estimated Glomerular Filt Rate > 60; Glucose 82 mg/dL (75-110); Magnesium 2.2 mg/dL (1.6-2.3); Phosphorus 2.9 mg/dL (2.5-4.5); Sodium 123 mmol/L (137-145)
[2020-04-06 06:18] LABS: Partial Thromboplastin Time 25.9 SECONDS (22.3-36.8); Prothrombin Time 13.9 Seconds (11.1-14.7)
[2020-04-06] MEDS: NOREPINEPHRINE BITARTRATE 16 MG in DEXTROSE 5% IN WATER 234 ML 28.13 ML IV CONT (07:05)
[2020-04-06] MEDS: SILVERGEL (ELTA) 45 ML 1 APPLIC TOPICAL (07:56)
[2020-04-06] MEDS: PANTOPRAZOLE SODIUM IV 40 MG VIAL 80 MG IV PUSH ×2 (07:56→20:06)
--- NOTE | 2020-04-06 09:28 | WPDINTPN ---
Progress Note: A&P Assessment and Plan (1) Shock: Code(s): R57.9 - Shock, unspecified Status: Acute Assessment and Plan: Possible sepsis due to wound infection (pseudomonas) Continue imipenem per ID recommendations Less likely due to GI blood loss 04/06: Weaning pressors, currently on NE, Dopa, vaso (stop latter 2) (2) Hyponatremia: Code(s): E87.1 - Hypo-osmolality and hyponatremia Status: Acute Assessment and Plan: 04/05 received 3% saline 04/06 Na improved from 120 to 123 Continue to monitor (3) Acute blood loss anemia: Code(s): D62 - Acute posthemorrhagic anemia Status: Acute Assessment and Plan: Stable since EGD and clipping of possible Dieulafoy ulcer 04/06: Hgb 8.3 (4) GI bleed: Qualifiers: GI bleed type/associated pathology: unspecified gastrointestinal hemorrhage type Qualified Code(s): K92.2 - Gastrointestinal hemorrhage, unspecified Code(s): K92.2 - Gastrointestinal hemorrhage, unspecified Status: Acute Assessment and Plan: EGD with Dieulafoy lesion, clipped 04/04 Continue BID protonix Start TF with Glucerna and saline flushes via OG when OK with GI (5) Acute hyponatremia: Code(s): E87.1 - Hypo-osmolality and hyponatremia Status: Acute Assessment and Plan: Presumed due to free water retention, chronic with acute exacerbation due to shock (6) Severe sepsis: Code(s): A41.9 - Sepsis, unspecified organism; R65.20 - Severe sepsis without septic shock Status: Acute (7) Paroxysmal atrial fibrillation: Code(s): I48.0 - Paroxysmal atrial fibrillation Status: Acute Assessment and Plan: Anticoagulation on hold due to GI bleed (8) NURY (acute kidney injury): Code(s): N17.9 - Acute kidney failure, unspecified Status: Acute Assessment and Plan: Resolved 04/06 creatinine 1.1 (9) Hypertension: Qualifiers: Hypertension type: unspecified Qualified Code(s): I10 - Essential (primary) hypertension Code(s): I10 - Essential (primary) hypertension Status: Acute Assessment and Plan: Holding meds due to shock Subjective Date/time seen: 04/06/20 09:28 Interval history: 69-year-old male with paroxysmal atrial fibrillation status post cardiac ablation and permanent pacemaker insertion on rivaroxaban, insulin-dependent type 2 diabetes mellitus, hypertension, and hyperlipidemia who presented to the emergency department 04/03 via EMS from home with reports of rectal bleeding and syncope. He was diagnosed with COVID-19 on 03/18/2020 and completed a 5 day course of dexamethasone and azithromycin on 03/27/2020. EGD 04/04 with clipping of Dieulafoy lesion. No further bleeding noted since. Due to shock at admission, he was intubated and pressors initiated. Initally treated with vanc and cefepime for possible sepsis. Right foot wound culture grew pseudomonas, so now on imipenem. Pressors weaning. 04/06: No issues overnight. Review of Systems Review of Systems: ROS unobtainable: Yes unobtainable due to medical condition Exam Narrative: Exam Narrative: HEENT: EOMI, PERRL, sclerae nonicteric, pharyngeal mucosa pink and intact NECK: No JVD CHEST: Decreased BS HEART: NL S1/S2, regular, no murmur ABDOMEN: BS+, soft, nontender, no mass, no bruits EXTREMITIES: Diffuse 1-2+ edema NEUROLOGIC: CN intact and symmetric to inspection. MUSCULOSKELETAL: Tone symmetric. PSYCH: Drowsy. Does not respond to noxious stimuli. Objective Data Vital Signs Vital Signs: Vital Signs - 24 hr 04/05/20 09:30 04/05/20 09:33 04/05/20 09:35 Temperature Pulse Rate 76 75 77 Respiratory Rate 18 Blood Pressure 146/65 H 147/65 H 147/65 H Pulse Oximetry 93 04/05/20 09:59 04/05/20 10:00 04/05/20 10:07 Temperature Pulse Rate 75 75 75 Respiratory Rate 18 Blood Pressure 152/67 H 157/69 H 152/67 H Pulse Oximetry 95 04/05/20 1
--- NOTE | 2020-04-06 12:07 | PM.IMPN ---
Progress Note: A&P Assessment and Plan (1) Shock: Code(s): R57.9 - Shock, unspecified Status: Acute Assessment and Plan: Possible sepsis due to wound infection (pseudomonas) Continue imipenem per ID recommendations Less likely due to GI blood loss 04/06: Weaning pressors, currently on NE, Dopa, vaso (stop latter 2) (2) Hyponatremia: Code(s): E87.1 - Hypo-osmolality and hyponatremia Status: Acute Assessment and Plan: 04/05 received 3% saline 04/06 Na improved from 120 to 123 Continue to monitor (3) Acute blood loss anemia: Code(s): D62 - Acute posthemorrhagic anemia Status: Acute Assessment and Plan: Stable since EGD and clipping of possible Dieulafoy ulcer 04/06: Hgb 8.3 (4) GI bleed: Qualifiers: GI bleed type/associated pathology: unspecified gastrointestinal hemorrhage type Qualified Code(s): K92.2 - Gastrointestinal hemorrhage, unspecified Code(s): K92.2 - Gastrointestinal hemorrhage, unspecified Status: Acute Assessment and Plan: EGD with duodenitis Continue BID protonix (5) Acute hyponatremia: Code(s): E87.1 - Hypo-osmolality and hyponatremia Status: Acute (6) Severe sepsis: Code(s): A41.9 - Sepsis, unspecified organism; R65.20 - Severe sepsis without septic shock Status: Acute (7) Paroxysmal atrial fibrillation: Code(s): I48.0 - Paroxysmal atrial fibrillation Status: Acute Assessment and Plan: Anticoagulation on hold due to GI bleed (8) NURY (acute kidney injury): Code(s): N17.9 - Acute kidney failure, unspecified Status: Acute Assessment and Plan: Resolved 04/06 creatinine 1.1 (9) Hypertension: Qualifiers: Hypertension type: unspecified Qualified Code(s): I10 - Essential (primary) hypertension Code(s): I10 - Essential (primary) hypertension Status: Acute Assessment and Plan: Holding meds due to shock Additional Plan The patient has been admitted to the hospitalist service with Dr. Garg (Gastroenterology) consulting for further management of presumed upper GI bleed. His hemoglobin and hematocrit will be monitored closely and he will be transfused to a stable hemoglobin. Subjective Date/time seen: 04/06/20 12:07 Interval history: Patient is seen during the morning rounds today. Patient remains intubated on 50% FiO2, peep of 5 on CMV mode of ventilation. Sodium levels dropped to 1117 from 05/23 yesterday. Patient remains on epinephrine, Rock-Synephrine, dopamine, vasopressin and Levophed infusion. Patient much improved, weaning vasopressors quickly. Urine output has been adequate with creatinine trending down. LFTs within normal limits. White count trending down, currently 42.2. Patient is afebrile. Sedated with fentanyl and Versed, opens his eyes but does not follow simple commands Review of Systems Review of Systems: ROS unobtainable: Yes unobtainable due to endotracheal tube and unobtainable due to medical condition Exam Narrative: Exam Narrative: HEENT: EOMI, PERRL, sclerae nonicteric, pharyngeal mucosa pink and intact NECK: No JVD CHEST: Decreased BS HEART: NL S1/S2, regular, no murmur ABDOMEN: BS+, soft, nontender, no mass, no bruits EXTREMITIES: Diffuse 1-2+ edema NEUROLOGIC: CN intact and symmetric to inspection. MUSCULOSKELETAL: Tone symmetric. PSYCH: Drowsy. Does not respond to noxious stimuli. Objective Data Vital Signs Vital Signs: Vital Signs - 24 hr 04/05/20 12:16 04/05/20 12:30 04/05/20 13:00 Temperature Pulse Rate 85 94 76 Respiratory Rate 18 18 Blood Pressure 121/56 L 114/56 L 110/49 L Pulse Oximetry 93 97 04/05/20 13:25 04/05/20 13:30 04/05/20 13:38 Temperature Pulse Rate 77 75 Respiratory Rate 18 Blood Pressure 120/60 120/52 L 118/52 L Pulse Oximetry 95 04/05/20 14:00 04/05/20 14:19 04/05/20 14:20 Temperature Pulse Rate 75
[2020-04-06 12:51] LABS: Glucose Point of Care 93 (65-105)
[2020-04-06 12:51] LABS: Glucose Point of Care 101 (65-105)
[2020-04-06 12:51] LABS: Glucose Point of Care 127 (65-105)
[2020-04-06 12:51] LABS: Glucose Point of Care 114 (65-105)
[2020-04-06 12:51] LABS: Glucose Point of Care 102 (65-105)
--- NOTE | 2020-04-06 13:15 | WPDGIPROGNO ---
Progress Note: A&P Additional Plan GI Sohail for Fedder 06 Apr 2020 Patient not personally seen due to CV-19 positivity. 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 VSS. Intubated and sedated Hct 25->24 today A/P Acute blood loss anemia: - Secondary to Dieulafoy lesion; clipped - No evidence of active gi bleed - OK with me for OG tube and tube feeds - Continue acid suppression - Care with aspirin, NSAIDS and anticoagulants Luis [facility] [phone] Subjective Date/time seen: 04/06/20 13:15 Objective Data Vital Signs Vital Signs: Vital Signs - 24 hr 04/05/20 13:25 04/05/20 13:30 04/05/20 13:38 Temperature Pulse Rate 77 75 Respiratory Rate 18 Blood Pressure 120/60 120/52 L 118/52 L Pulse Oximetry 95 04/05/20 14:00 04/05/20 14:19 04/05/20 14:20 Temperature Pulse Rate 75 75 75 Respiratory Rate 18 18 Blood Pressure 62/31 L 138/57 L 141/58 H Pulse Oximetry 97 96 04/05/20 14:41 04/05/20 15:00 04/05/20 15:30 Temperature Pulse Rate 77 78 76 Respiratory Rate 18 18 Blood Pressure 130/57 L 138/59 L Pulse Oximetry 99 98 98 04/05/20 15:37 04/05/20 16:00 04/05/20 16:01 Temperature 36.7 C Pulse Rate 75 77 79 Respiratory Rate 18 Blood Pressure 146/63 H 151/65 H 134/59 L Pulse Oximetry 98 04/05/20 16:05 04/05/20 16:30 04/05/20 17:00 Temperature Pulse Rate 79 75 78 Respiratory Rate 18 18 Blood Pressure 134/59 L 148/63 H 153/64 H Pulse Oximetry 97 97 04/05/20 17:07 04/05/20 17:27 04/05/20 17:30 Temperature Pulse Rate 75 75 75 Respiratory Rate 18 Blood Pressure 150/62 H 143/60 H 143/60 H Pulse Oximetry 97 04/05/20 17:36 04/05/20 18:00 04/05/20 18:20 Temperature Pulse Rate 77 75 77 Respiratory Rate 18 Blood Pressure 140/58 L 143/60 H Pulse Oximetry 98 98 04/05/20 18:56 04/05/20 19:41 04/05/20 20:00 Temperature 36.5 C Pulse Rate 79 77 78 Respiratory Rate 18 Blood Pressure 140/61 141/61 H Pulse Oximetry 99 99 04/05/20 20:31 04/05/20 20:32 04/05/20 20:33 Temperature Pulse Rate 83 87 Respiratory Rate 18 Blood Pressure 146/64 H 147/66 H Pulse Oximetry 04/05/20 21:36 04/05/20 21:38 04/05/20 21:39 Temperature Pulse Rate 75 Respiratory Rate 18 Blood Pressure 142/58 H 143/58 H Pulse Oximetry 04/05/20 22:00 04/05/20 22:09 04/05/20 23:14 Temperature 36.2 C L Pulse Rate 75 75 Respiratory Rate 18 18 Blood Pressure 117/50 L 111/47 L 107/49 L Pulse Oximetry 95 96 04/05/20 23:26 04/06/20 00:00 04/06/20 01:49 Temperature Pulse Rate 80 80 75 Respiratory Rate Blood Pressure Pulse Oximetry 95 04/06/20 01:50 04/06/20 02:29 04/06/20 03:06 Temperature Pulse Rate 75 75 75 Respiratory Rate 18 18 Blood Pressure 123/60 120/60 Pulse Oximetry 98 97 04/06/20 04:00 04/06/20 04:15 04/06/20 04:16 Temperature 36.1 C L Pulse Rate 75 75 Respiratory Rate 18 18 Blood Pressure 105/55 L 108/57 L Pulse Oximetry 100 04/06/20 04:45 04/06/20 05:15 04/06/20 05:59 Temperature Pulse Rate 76 75 75 Respiratory Rate 18 Blood Pressure Pulse Oximetry 100 04/06/20 06:00 04/06/20 06:30 04/06/20 08:00 Temperature 35.4 C L Pulse Rate 75 80 Respiratory Rate 18 18 Blood Pressure 136/62 107/55 L 127/79 Pulse Oximetry 100 97 04/06/20 09:29 04/06/20 11:05 04/06/20 11:27 Temperature Pulse Rate 77 75 75 Respiratory Rate 18 Blood Pressure Pulse Oximetry 100 100 Intake/Output Intake/Output: Intake & Output 04/03/20 04/04/20 04/05/20 04/06/20 23:59 23:59 23:59 23:59 Intake Total 3603 6643.4 7455.6 1050 Output Total 1100 3575 1375 Balance 3603 5543.4 3880.6 -325 Meds/Results Medications: Active Medications Generic Name Dose Route Start Last Admin Trade Name Freq PRN Reason Stop Dose Admin Dextrose 12.5 gm 04/04/20 00:22 Dextrose 50% 25 Gm/50 Ml Syringe IV PUSH PRN PRN Hypoglycemia Protocol
[2020-04-06 14:17] LABS: Potassium 4.9 mmol/L (3.4-5.0)
[2020-04-06 14:24] LABS: Anion Gap 6 mmol/L (8-16); Blood Urea Nitrogen 52 mg/dL (9-20); Calcium 7.5 mg/dL (8.4-10.2); Carbon Dioxide 27 mmol/L (22-30); Chloride 88 mmol/L (98-107); Estimated CRCL calculation 114 ml/min; Estimated Glomerular Filt Rate > 60; Glucose 205 mg/dL (75-110); Sodium 121 mmol/L (137-145)
--- NOTE | 2020-04-06 14:45 | PM.PNNEP ---
Progress Note: A&P Assessment and Plan (1) Hyponatremia: Code(s): E87.1 - Hypo-osmolality and hyponatremia Status: Acute Assessment and Plan: somewhat of a chronic issues as had low sodium levels as far back as October so has an acute and chronic component to this problems etiology of chronic component not clear - probably some underlying free water excretion defect: - X-rays negative - no history of cancer/malignancy - no obvious medication issues - TSH normal - cortisol is okay acute component related large amount of free water he is getting from multiple drips and IVPBs/IV medications... he has already been switched from D5W to normal saline carrier fluid in as many meds/drips...etc as possible s/p 3% saline yesterday with appropriate increase in sodium going to be started on normal saline tube flushes as well follow trend of repeat sodiums (2) NURY (acute kidney injury): Code(s): N17.9 - Acute kidney failure, unspecified Status: Acute Assessment and Plan: resolving due to shock and need for pressors making good urine output and creatinine improving continue supportive therapy (3) Shock: Code(s): R57.9 - Shock, unspecified Status: Acute Assessment and Plan: on pressor therapy etiology - infection versus cardiac issues versus others on IV antibiotic therapy follow culture data Will continue to follow. Subjective Date/time seen: 04/06/20 14:45 Remains intubated/sedated and on pressors although pressor requirements are less and are weaned as tolerated; sodium better s/p 3% saline infusion yesterday; no other apparent issues or problems at this time. Exam Narrative: Exam Narrative: General: ill appearing male in NAD (intubated/sedated) Heart: normal S1 and S2; no rub Lungs: decreased breath sounds Abdomen: soft, nontender, nondistended, positive bowel sounds Extremities: no cyanosis or clubbing; 1 - 2+ edema Skin: warm and dry Objective Data Vital Signs Vital Signs: Vital Signs Temp Pulse Resp BP Pulse Ox 04/06/20 13:48 75 100 04/06/20 11:27 75 18 04/06/20 11:05 75 100 04/06/20 09:29 77 100 04/06/20 08:00 35.4 C L 80 18 127/79 97 04/06/20 06:30 107/55 L 04/06/20 06:00 75 18 136/62 100 04/06/20 05:59 75 04/06/20 05:15 75 18 04/06/20 04:45 76 100 04/06/20 04:16 75 18 04/06/20 04:15 108/57 L 04/06/20 04:00 36.1 C L 75 18 105/55 L 100 04/06/20 03:06 75 18 120/60 04/06/20 02:29 75 97 04/06/20 01:50 75 18 123/60 98 04/06/20 01:49 75 04/06/20 00:00 80 04/05/20 23:26 80 95 04/05/20 23:14 36.2 C L 75 18 107/49 L 96 04/05/20 22:09 111/47 L 04/05/20 22:00 75 18 117/50 L 95 04/05/20 21:39 75 18 04/05/20 21:38 143/58 H 04/05/20 21:36 142/58 H 04/05/20 20:33 87 18 04/05/20 20:32 147/66 H 04/05/20 20:31 83 146/64 H 04/05/20 20:00 36.5 C 78 18 141/61 H 99 04/05/20 19:41 77 99 04/05/20 18:56 79 140/61 04/05/20 18:20 77 143/60 H 04/05/20 18:00 75 18 140/58 L 98 04/05/20 17:36 77 98 04/05/20 17:30 75 18 143/60 H 97 04/05/20 17:27 75 143/60 H 04/05/20 17:07 75 150/62 H 04/05/20 17:00 78 18 153/64 H 97 04/05/20 16:30 75 18 148/63 H 97 04/05/20 16:05 79 134/59 L 04/05/20 16:01 79 134/59 L 04/05/20 16:00 36.7 C 77 18 151/65 H 98 04/05/20 15:37 75 146/63 H 04/05/20 15:30 76 18 138/59 L 98 04/05/20 15:00 78 18 130/57 L 98 Intake/Output Intake/Output: Intake & Output 04/03/20 04/04/20 04/05/20 04/06/20 23:59 23:59 23:59 23:59 Intake Total 3603 6643.4 7455.6 1050 Output Total 1100 3575 1375 Balance 3603 5543.4 3880.6 -325 Meds/Results Medications: Active Medications Generic Name
[2020-04-06] MEDS: NOREPINEPHRINE BITARTRATE 16 MG in DEXTROSE 5% IN WATER 234 ML 33.75 ML IV CONT (15:25)
[2020-04-06 17:42] LABS: Sodium 123 mmol/L (137-145)
[2020-04-06 17:56] LABS: Glucose Point of Care 192 (65-105)
[2020-04-06] MEDS: NOREPINEPHRINE BITARTRATE 16 MG in DEXTROSE 5% IN WATER 234 ML 31.88 ML IV CONT (20:08)
[2020-04-06] MEDS: FENTANYL 2,500MCG/NS250ML(*CRX 2,500 MCG/250 ML BAG 15 MCG IV CONT (22:47)
[2020-04-06] MEDS: INSULIN ASPART (*BKC) 100 UNITS/ML SUB-Q (23:40)
[2020-04-06 23:50] LABS: Sodium 125 mmol/L (137-145)
[2020-04-07] VITALS (32 sets, daily range): BP systolic 94–126; BP diastolic 41–70; PULSE 75–96; RESP 18–21; TEMP 36.6–37.3; O2SAT 96–100
[2020-04-07 00:27] LABS: Glucose Point of Care 283 (65-105)
[2020-04-07 05:17] LABS: Hematocrit 22.4 % (42.0-52.0); Hemoglobin 7.6 g/dL (14.0-18.0); Mean Corpuscular HGB Conc 33.9 g/dl (32-36); Mean Corpuscular Hemoglobin 32.2 pg (26-34); Mean Corpuscular Volume 94.9 fl (80-100); Mean Platelet Volume 10.1 fl (7.4-10.4); Platelet Count Result 198 k/mm3 (150-375); Red Blood Count 2.36 M/mm3 (4.6-6.20); Red Cell Distribution Width 13.7 % (11.5-14.5); White Blood Count 22.2 K/mm3 (4.5-10.0)
[2020-04-07 05:17] LABS: Glucose Point of Care 351 (65-105)
[2020-04-07] MEDS: NOREPINEPHRINE BITARTRATE 16 MG in DEXTROSE 5% IN WATER 234 ML 32.81 ML IV CONT ×2 (05:20→13:11)
[2020-04-07] MEDS: INSULIN ASPART (*BKC) 100 UNITS/ML SUB-Q ×3 (05:20→23:49)
[2020-04-07] MEDS: CENTRAL LINE FLUSH 10 ML IV PUSH ×2 (05:22→20:24)
[2020-04-07 05:39] LABS: Alanine Aminotransferase 17 U/L (4-50); Albumin Level 2.2 g/dL (3.5-5.1); Alkaline Phosphatase 62 U/L (38-126); Anion Gap 2 mmol/L (8-16); Aspartate Amino Transferase 21 U/L (17-59); Bilirubin,Total 0.3 mg/dL (0.2-1.3); Blood Urea Nitrogen 43 mg/dL (9-20); Calcium 8.1 mg/dL (8.4-10.2); Carbon Dioxide 33 mmol/L (22-30); Chloride 92 mmol/L (98-107); Estimated CRCL calculation 105 ml/min; Estimated Glomerular Filt Rate > 60; Glucose 383 mg/dL (75-110); Magnesium 2.6 mg/dL (1.6-2.3); Phosphorus 3.1 mg/dL (2.5-4.5); Sodium 127 mmol/L (137-145)
[2020-04-07 05:40] LABS: INR 1.1; Lactic Acid Reflex 1.2 mmol/L (0.7-2.1); Partial Thromboplastin Time 25.6 SECONDS (22.3-36.8); Prothrombin Time 14.5 Seconds (11.1-14.7)
[2020-04-07 05:42] LABS: Alveolar/Arterial O2 Gradient 88.8 mmHg; Base Excess ABG 2.1 mEq/l (+/-2.0); Carboxyhemoglobin 0.3 % THb (0-2.0); Fractional Inspired Oxygen 30 %; HCO3 ABG 26.3 mEq/l (22.0-26.0); Methemoglobin ABG 0.2 %THb (0-1.5); Oxygen Content ABG 10.6 %vol (16.0-22.0); Oxygen Saturation ABG 96.1 % (95.0-100.0); Oxyhemoglobin 94.2 % THb (90.0-100.0); PCO2 ABG 39.5 mmHg (35.0-45.0); PO2 ABG 78.7 mmHg (80.0-100.0); PO2 FiO2 Ratio Arterial Blood 2.62 %; Reduced Hemoglobin 5.3 %THb (0-5.0); pH ABG 7.442 (7.350-7.450)
[2020-04-07 05:43] LABS: Arterial Blood Gas PEEP 5 cmH2O; Arterial Blood Gas Vent Mode CMV; Arterial Blood Gas Ventilator rate 18 /MIN; Device VENTILATOR; Site Drawn ARTLINE; Total Hemoglobin 7.9 g/dL (12.0-18.0)
[2020-04-07 05:44] LABS: Arterial Blood Gas Tidal Volume 500 ml
[2020-04-07] MEDS: INSULIN GLARGINE (*BKC) 100 UNITS/ML 15 UNITS SUB-Q ×2 (08:15→13:10)
[2020-04-07] MEDS: PANTOPRAZOLE SODIUM IV 40 MG VIAL 80 MG IV PUSH ×2 (08:15→20:23)
[2020-04-07] MEDS: SILVERGEL (ELTA) 45 ML 1 APPLIC TOPICAL (08:15)
--- NOTE | 2020-04-07 09:00 | P.PNINT_ITS ---
Progress Note: A&P Assessment and Plan (1) Respiratory failure: Qualifiers: Chronicity: acute Respiratory failure complication: unspecified whether with hypoxia or hypercapnia Qualified Code(s): J96.00 - Acute respiratory failure, unspecified whether with hypoxia or hypercapnia Code(s): J96.90 - Respiratory failure, unspecified, unspecified whether with hypoxia or h ypercapnia Status: Acute Assessment and Plan: * 04/07 ABG 7.44/39.5/78.7/96.1% on CMV, rate 18, TV 500, PEEP 5 * 04/07 CXR relatively stable bilateral infiltrates * 04/07: 04/06 I/O 2150/5575, 04/07 overnight UO 1950 (2) Shock: Code(s): R57.9 - Shock, unspecified Status: Acute Assessment and Plan: * Possible sepsis due to wound infection (pseudomonas) * Continue imipenem per ID recommendations * GI blood loss likely contributing * 04/07: NE at 35mcg with pressures labile (3) Hyponatremia: Code(s): E87.1 - Hypo-osmolality and hyponatremia Status: Acute Assessment and Plan: * 04/05 received 3% saline * 04/06 Na improved from 120 to 123, 04/07 127 (after NaCl flushes for TF and eliminating extraneous drips with free water) * Continue to monitor (4) Acute blood loss anemia: Code(s): D62 - Acute posthemorrhagic anemia Status: Acute Assessment and Plan: * Was stable after EGD and clipping of possible Dieulafoy lesion * 04/06: Hgb 8.3, 04/07 Hgb 7.6 with no signs of bleeding until noon, then bloody stool; Dr. Sauceda notified * 04/07: 2 U PRBC and f/u h/h (5) GI bleed: Qualifiers: GI bleed type/associated pathology: unspecified gastrointestinal hemorrhage type Qualified Code(s): K92.2 - Gastrointestinal hemorrhage, unspecified Code(s): K92.2 - Gastrointestinal hemorrhage, unspecified Status: Acute Assessment and Plan: * EGD with Dieulafoy lesion, clipped 04/04 * No overt bleeding 04/04-04/06, then bloody stool 04/07 at noon * Continue BID protonix * 04/06: Started TF with Glucerna and saline flushes via OG, 04/07 held due to GI bleeding (6) Severe sepsis: Code(s): A41.9 - Sepsis, unspecified organism; R65.20 - Severe sepsis without septic shock Status: Acute Assessment and Plan: * Presumably due to right foot wound infection * Continue Imipenem for pseudomonas wound infection * BC negative * 04/07 NE drip at 35 mcg/min (7) Paroxysmal atrial fibrillation: Code(s): I48.0 - Paroxysmal atrial fibrillation Status: Acute Assessment and Plan: * Paced rhythm * Anticoagulation on hold due to GI bleed (8) Insulin dependent type 2 diabetes mellitus: Code(s): E11.9 - Type 2 diabetes mellitus without complications; 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 Status: Acute Assessment and Plan: * 04/07 FBS 351, 421 in PM * 04/07 Added glargine 15 U daily, then additional 15 and increased to 30; continue SSI at high dose (9) NURY (acute kidney injury): Code(s): N17.9 - Acute kidney failure, unspecified Status: Acute Assessment and Plan: * Resolved * 04/07 creatinine 1.1 (10) Hypertension: Qualifiers: Hypertension type: unspecified Qualified Code(s): I10 - Essential (primary) hypertension Code(s): I10 - Essential (primary) hypertension Status: Acute Assessment and Plan: * Holding meds due to shock Subjective Date/time seen: 04/07/20 09:00 Interval history: 69-year-old male with paroxysmal atrial fibrillation status pos
--- NOTE | 2020-04-07 09:00 | WPDINTPN ---
Progress Note: A&P Assessment and Plan (1) Respiratory failure: Qualifiers: Chronicity: acute Respiratory failure complication: unspecified whether with hypoxia or hypercapnia Qualified Code(s): J96.00 - Acute respiratory failure, unspecified whether with hypoxia or hypercapnia Code(s): J96.90 - Respiratory failure, unspecified, unspecified whether with hypoxia or hypercapnia Status: Acute Assessment and Plan: 04/07 ABG 7.44/39.5/78.7/96.1% on CMV, rate 18, TV 500, PEEP 5 04/07 CXR relatively stable bilateral infiltrates 04/07: 04/06 I/O 2150/5575, 04/07 overnight UO 1950 (2) Shock: Code(s): R57.9 - Shock, unspecified Status: Acute Assessment and Plan: Possible sepsis due to wound infection (pseudomonas) Continue imipenem per ID recommendations GI blood loss likely contributing 04/07: NE at 35mcg with pressures labile (3) Hyponatremia: Code(s): E87.1 - Hypo-osmolality and hyponatremia Status: Acute Assessment and Plan: 04/05 received 3% saline 04/06 Na improved from 120 to 123, 04/07 127 (after NaCl flushes for TF and eliminating extraneous drips with free water) Continue to monitor (4) Acute blood loss anemia: Code(s): D62 - Acute posthemorrhagic anemia Status: Acute Assessment and Plan: Was stable after EGD and clipping of possible Dieulafoy lesion 04/06: Hgb 8.3, 04/07 Hgb 7.6 with no signs of bleeding until noon, then bloody stool; Dr. Sauceda notified 04/07: 2 U PRBC and f/u h/h (5) GI bleed: Qualifiers: GI bleed type/associated pathology: unspecified gastrointestinal hemorrhage type Qualified Code(s): K92.2 - Gastrointestinal hemorrhage, unspecified Code(s): K92.2 - Gastrointestinal hemorrhage, unspecified Status: Acute Assessment and Plan: EGD with Dieulafoy lesion, clipped 04/04 No overt bleeding 04/04-04/06, then bloody stool 04/07 at noon Continue BID protonix 04/06: Started TF with Glucerna and saline flushes via OG, 04/07 held due to GI bleeding (6) Severe sepsis: Code(s): A41.9 - Sepsis, unspecified organism; R65.20 - Severe sepsis without septic shock Status: Acute Assessment and Plan: Presumably due to right foot wound infection Continue Imipenem for pseudomonas wound infection BC negative 04/07 NE drip at 35 mcg/min (7) Paroxysmal atrial fibrillation: Code(s): I48.0 - Paroxysmal atrial fibrillation Status: Acute Assessment and Plan: Paced rhythm Anticoagulation on hold due to GI bleed (8) Insulin dependent type 2 diabetes mellitus: Code(s): E11.9 - Type 2 diabetes mellitus without complications; 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 Status: Acute Assessment and Plan: 04/07 FBS 351, 421 in PM 04/07 Added glargine 15 U daily, then additional 15 and increased to 30; continue SSI at high dose (9) NURY (acute kidney injury): Code(s): N17.9 - Acute kidney failure, unspecified Status: Acute Assessment and Plan: Resolved 04/07 creatinine 1.1 (10) Hypertension: Qualifiers: Hypertension type: unspecified Qualified Code(s): I10 - Essential (primary) hypertension Code(s): I10 - Essential (primary) hypertension Status: Acute Assessment and Plan: Holding meds due to shock Subjective Date/time seen: 04/07/20 09:00 Interval history: 69-year-old male with paroxysmal atrial fibrillation status post cardiac ablation and permanent pacemaker insertion on rivaroxaban, insulin-dependent type 2 diabetes mellitus, hypertension, and hyperlipidemia who presented to the emergency department 04/03 via EMS from home with reports of rectal bleeding and syncope. He was diagnosed with COVID-19 on 03/18/2020 and completed a 5 day course of dexamethasone and azithromycin on 03/27/2020. EGD 04/04 with clipping of Dieulafoy lesion. No further bleeding noted since. Due to shock at adm
--- NOTE | 2020-04-07 10:45 | PM.IMPN ---
Progress Note: A&P Assessment and Plan (1) Shock: Code(s): R57.9 - Shock, unspecified Status: Acute Assessment and Plan: Possible sepsis due to wound infection (pseudomonas) Continue imipenem per ID recommendations Less likely due to GI blood loss 04/06: Weaning pressors, currently on NE, Dopa, vaso (stop latter 2) (2) Hyponatremia: Code(s): E87.1 - Hypo-osmolality and hyponatremia Status: Acute Assessment and Plan: 04/05 received 3% saline 04/06 Na improved from 120 to 123 Continue to monitor (3) Acute blood loss anemia: Code(s): D62 - Acute posthemorrhagic anemia Status: Acute Assessment and Plan: Stable since EGD and clipping of possible Dieulafoy ulcer 04/06: Hgb 8.3 (4) GI bleed: Qualifiers: GI bleed type/associated pathology: unspecified gastrointestinal hemorrhage type Qualified Code(s): K92.2 - Gastrointestinal hemorrhage, unspecified Code(s): K92.2 - Gastrointestinal hemorrhage, unspecified Status: Acute Assessment and Plan: EGD with duodenitis Continue BID protonix (5) Acute hyponatremia: Code(s): E87.1 - Hypo-osmolality and hyponatremia Status: Acute (6) Severe sepsis: Code(s): A41.9 - Sepsis, unspecified organism; R65.20 - Severe sepsis without septic shock Status: Acute (7) Paroxysmal atrial fibrillation: Code(s): I48.0 - Paroxysmal atrial fibrillation Status: Acute Assessment and Plan: Anticoagulation on hold due to GI bleed (8) NURY (acute kidney injury): Code(s): N17.9 - Acute kidney failure, unspecified Status: Acute Assessment and Plan: Resolved 04/06 creatinine 1.1 (9) Hypertension: Qualifiers: Hypertension type: unspecified Qualified Code(s): I10 - Essential (primary) hypertension Code(s): I10 - Essential (primary) hypertension Status: Acute Assessment and Plan: Holding meds due to shock Additional Plan The patient has been admitted to the hospitalist service with Dr. Garg (Gastroenterology) consulting for further management of presumed upper GI bleed. His hemoglobin and hematocrit will be monitored closely and he will be transfused to a stable hemoglobin. Will transfuse two units of prbc today. Subjective Date/time seen: 04/07/20 10:45 Interval history: Patient is seen during the morning rounds today. Patient remains intubated on 50% FiO2, peep of 5 on CMV mode of ventilation. Sodium levels dropped to 1117 from 05/23 yesterday. Patient remains on epinephrine, Rock-Synephrine, dopamine, vasopressin and Levophed infusion. Patient much improved, weaning vasopressors quickly. Urine output has been adequate with creatinine trending down. LFTs within normal limits. White count trending down, currently 42.2. Patient is afebrile. Sedated with fentanyl and Versed, opens his eyes but does not follow simple commands Review of Systems Review of Systems: ROS unobtainable: Yes unobtainable due to endotracheal tube and unobtainable due to medical condition Exam Narrative: Exam Narrative: HEENT: EOMI, PERRL, sclerae nonicteric, pharyngeal mucosa pink and intact NECK: No JVD CHEST: Decreased BS HEART: NL S1/S2, regular, no murmur ABDOMEN: BS+, soft, nontender, no mass, no bruits EXTREMITIES: Diffuse 1-2+ edema NEUROLOGIC: CN intact and symmetric to inspection. MUSCULOSKELETAL: Tone symmetric. PSYCH: Drowsy. Does not respond to noxious stimuli. Objective Data Vital Signs Vital Signs: Vital Signs - 24 hr 04/06/20 11:05 04/06/20 11:27 04/06/20 12:00 Temperature 35.5 C L Pulse Rate 75 75 75 Respiratory Rate 18 18 Blood Pressure 109/56 L Pulse Oximetry 100 100 04/06/20 13:48 04/06/20 14:00 04/06/20 16:00 Temperature 35.5 C L Pulse Rate 75 75 75 Respiratory Rate 18 18 Blood Pressure 114/55 L 103/50 L Pulse Oximetry 100 100 100 04/06/20 16:57 04/06/20 17:39
--- NOTE | 2020-04-07 10:52 | WPDGIPROGNO ---
Progress Note: A&P Additional Plan GI [facility] for [facility] 07 Apr 2020 Patient not personally seen due to CV-19 positivity. History from chart and [facility] Case discussed with ICU team on rounds: NO bleed. Nikkie tube feeds. No hematemesis, BRBPR, melena. VSS. Intubated and sedated Hct 25->24->22. LFT's normal. A/P Acute blood loss anemia: - Secondary to Dieulafoy lesion; clipped - No evidence of active gi bleed - Decreasing H+H likely hydrational - Continue acid suppression - Care with aspirin, NSAIDS and anticoagulants No further recommendations. Please call if needed. Luis, Subjective Date/time seen: 04/07/20 10:52 Objective Data Vital Signs Vital Signs: Vital Signs - 24 hr 04/06/20 11:05 04/06/20 11:27 04/06/20 12:00 Temperature 35.5 C L Pulse Rate 75 75 75 Respiratory Rate 18 18 Blood Pressure 109/56 L Pulse Oximetry 100 100 04/06/20 13:48 04/06/20 14:00 04/06/20 16:00 Temperature 35.5 C L Pulse Rate 75 75 75 Respiratory Rate 18 18 Blood Pressure 114/55 L 103/50 L Pulse Oximetry 100 100 100 04/06/20 16:57 04/06/20 17:39 04/06/20 20:00 Temperature 36.6 C 35.9 C L Pulse Rate 75 75 75 Respiratory Rate 18 18 Blood Pressure 97/45 L 100/49 L Pulse Oximetry 100 97 100 04/06/20 20:07 04/06/20 20:08 04/06/20 20:09 Temperature Pulse Rate 76 75 Respiratory Rate 18 18 Blood Pressure 107/48 L Pulse Oximetry 04/06/20 20:50 04/06/20 22:00 04/06/20 22:47 Temperature Pulse Rate 75 75 75 Respiratory Rate 18 18 Blood Pressure 99/44 L Pulse Oximetry 100 100 04/06/20 23:43 04/06/20 23:45 04/07/20 00:00 Temperature 36.7 C Pulse Rate 75 75 Respiratory Rate 18 Blood Pressure 96/44 L Pulse Oximetry 100 04/07/20 00:20 04/07/20 01:10 04/07/20 01:34 Temperature Pulse Rate 75 75 Respiratory Rate Blood Pressure 94/44 L Pulse Oximetry 98 04/07/20 02:00 04/07/20 03:23 04/07/20 03:41 Temperature 36.9 C Pulse Rate 96 75 75 Respiratory Rate 18 Blood Pressure 100/43 L 107/44 L Pulse Oximetry 96 96 97 04/07/20 03:54 04/07/20 04:00 04/07/20 05:20 Temperature Pulse Rate 75 Respiratory Rate Blood Pressure 98/42 L 98/42 L Pulse Oximetry 04/07/20 05:30 04/07/20 06:00 04/07/20 08:00 Temperature 36.7 C Pulse Rate 75 75 75 Respiratory Rate 18 18 Blood Pressure 95/41 L 94/42 L Pulse Oximetry 96 96 96 04/07/20 08:28 Temperature Pulse Rate 76 Respiratory Rate Blood Pressure Pulse Oximetry 97 Intake/Output Intake/Output: Intake & Output 04/04/20 04/05/20 04/06/20 04/07/20 23:59 23:59 23:59 23:59 Intake Total 6643.4 7455.6 2160 1349 Output Total 1100 3575 5575 1950 Balance 5543.4 3880.6 -3415 -601 Meds/Results Medications: Active Medications Generic Name Dose Route Start Last Admin Trade Name Freq PRN Reason Stop Dose Admin Dextrose 12.5 gm 04/06/20 10:42 Dextrose 50% 25 Gm/50 Ml Syringe IV PUSH PRN PRN Hypoglycemia Protocol Glucagon 1 mg 04/06/20 10:42 Glucagon For Inj 1 Mg Vial IM PRN PRN Hypoglycemia Protocol Glucose 15 gm 04/06/20 10:42 Glucose Oral Gel 15 Gm Of Glucse In 37.5 Gm Tube PO PRN PRN Hypoglycemia Protocol Imipenem/Cilastatin Sodium 500 500 mg in 100 mls @ 300 mls/hr 04/04/20 08:00 04/07/20 08:15 mg/ Sodium Chloride IVPB 300 mls/hr Q6H BRENT Administration Norepinephrine Bitartrate 16 250 mls @ 32.813 mls/hr 04/04/20 11:00 04/07/20 05:20 mg/ Dextrose IV CONT 35 mcg/min .[id number] BRENT 32.81 mls/hr Administration Protocol 35 MCG/MIN Fentanyl Citrate 2,500 mcg in 250 mls @ 15 mls/hr 04/04/20 12:20 04/06/20 22:47 Fentanyl 2,500 Mcg/Ns 250 Ml IV CONT 150 mcg/hr .[id number] BRENT 15 mls/hr Administration Midazolam HCl 50 mg in 100 mls @ 8 mls/hr 04/04/20 12:20 04/07/20 01:11 Versed 50 Mg/D5w 100 Ml IV CONT 4 mg/hr .[id number] BRENT 8 mls/hr
[2020-04-07 11:36] LABS: Glucose Point of Care 421 (65-105)
[2020-04-07 13:10] LABS: Hematocrit 24.1 % (42.0-52.0); Hemoglobin 7.9 g/dL (14.0-18.0)
[2020-04-07] MEDS: INSULIN ASPART (*BKC) 100 UNITS/ML 10 UNITS SUB-Q (13:10)
--- NOTE | 2020-04-07 15:52 | PM.PNNEP ---
Progress Note: A&P Assessment and Plan (1) Hyponatremia: Code(s): E87.1 - Hypo-osmolality and hyponatremia Status: Acute Assessment and Plan: somewhat of a chronic issues as had low sodium levels as far back as October 2019 so has an acute and chronic component to this problems etiology of chronic component not clear - probably some underlying free water excretion defect: - X-rays negative - no history of cancer/malignancy - no obvious medication issues - TSH normal - cortisol is okay acute component related large amount of free water he is getting from multiple drips and IVPBs/IV medications... he has already been switched from D5W to normal saline carrier fluid in as many meds/drips...etc as possible s/p 3% saline day before yesterday with appropriate increase in sodium started on normal saline tube flushes as well - change to q6hr flushes follow trend of repeat sodiums - incrementing appropriately (2) NURY (acute kidney injury): Code(s): N17.9 - Acute kidney failure, unspecified Status: Acute Assessment and Plan: resolving due to shock and need for pressors making good urine output and creatinine improving continue supportive therapy (3) Shock: Code(s): R57.9 - Shock, unspecified Status: Acute Assessment and Plan: on pressor therapy etiology - infection versus cardiac issues versus others on IV antibiotic therapy follow culture data Will continue to follow. Subjective Date/time seen: 04/07/20 15:52 Continues to make slow and steady improvement; good urine output in the last 24 hours; sodium level incrementing appropriately with interventions to date; no acute events overnight or early this AM; did have a bloody bowel movement a few hours ago. Exam Narrative: Exam Narrative: General: ill appearing male in NAD (intubated/sedated) Heart: normal S1 and S2; no rub Lungs: decreased breath sounds Abdomen: soft, nontender, nondistended, positive bowel sounds Extremities: no cyanosis or clubbing; 1 - 2+ edema Skin: warm and intact Objective Data Vital Signs Vital Signs: Vital Signs Temp Pulse Resp BP Pulse Ox 04/07/20 14:23 75 97 04/07/20 13:40 36.8 C 75 18 123/70 97 04/07/20 13:24 36.7 C 75 18 123/68 97 04/07/20 12:04 37.0 C 77 18 124/70 97 04/07/20 11:47 36.6 C 75 18 123/52 L 97 04/07/20 11:08 75 97 04/07/20 10:00 75 18 123/53 L 97 04/07/20 08:28 76 97 04/07/20 08:00 36.7 C 75 18 94/42 L 96 04/07/20 06:00 75 18 95/41 L 96 04/07/20 05:30 75 96 04/07/20 05:20 98/42 L 04/07/20 04:00 75 04/07/20 03:54 98/42 L 04/07/20 03:41 36.9 C 75 18 107/44 L 97 04/07/20 03:23 75 96 04/07/20 02:00 96 100/43 L 96 04/07/20 01:34 75 04/07/20 01:10 94/44 L 04/07/20 00:20 75 98 04/07/20 00:00 75 04/06/20 23:45 36.7 C 04/06/20 23:43 75 18 96/44 L 100 04/06/20 22:47 75 18 04/06/20 22:00 75 18 99/44 L 100 04/06/20 20:50 75 100 04/06/20 20:09 75 18 04/06/20 20:08 107/48 L 04/06/20 20:07 76 18 04/06/20 20:00 35.9 C L 75 18 100/49 L 100 04/06/20 17:39 36.6 C 75 18 97/45 L 97 04/06/20 16:57 75 100 04/06/20 16:00 35.5 C L 75 18 103/50 L 100 Intake/Output Intake/Output: Intake & Output 04/04/20 04/05/20 04/06/20 04/07/20 23:59 23:59 23:59 23:59 Intake Total 6643.4 7455.6 2160 2049 Output Total 1100 3575 5529 3450 Balance 5543.4 4810.6 -7558 -8004 Meds/Results Medications: Active Medications Generic Name Dose Route Start Last Admin Trade Name Freq PRN Reason Stop Dose Admin Dextrose 12.5 gm 04/06/20 10:42 Dextrose 50% 25 Gm/50 Ml Syringe IV PUSH PRN PRN Hypoglycemia Protocol Glucagon 1 mg 04/06/20 10:42 Glucagon For Inj 1 Mg Vial IM P
[2020-04-07] MEDS: FENTANYL 2,500MCG/NS250ML(*CRX 2,500 MCG/250 ML BAG 15 MCG IV CONT (17:24)
[2020-04-07 17:36] LABS: Hematocrit 25.7 % (42.0-52.0); Hemoglobin 8.6 g/dL (14.0-18.0)
[2020-04-07 17:43] LABS: Sodium 129 mmol/L (137-145)
[2020-04-07 17:55] LABS: Glucose Point of Care 381 (65-105)
[2020-04-07 22:51] LABS: Vitamin D 1,25 (OH)2 Total 17 pg/mL (18-72); Vitamin D2 1,25 (OH)2 <8 pg/mL; Vitamin D3 1,25 (OH)2 17 pg/mL
[2020-04-07 23:49] LABS: Glucose Point of Care 362 (65-105)
[2020-04-08] VITALS (30 sets, daily range): BP systolic 104–141; BP diastolic 55–81; PULSE 75–80; RESP 18–22; TEMP 36.4–37.5; O2SAT 96–100
[2020-04-08 04:40] LABS: Alveolar/Arterial O2 Gradient 90.2 mmHg; Base Excess ABG 6.4 mEq/l (+/-2.0); Carboxyhemoglobin 0.3 % THb (0-2.0); Fractional Inspired Oxygen 30 %; HCO3 ABG 30.9 mEq/l (22.0-26.0); Methemoglobin ABG 0.3 %THb (0-1.5); Oxygen Content ABG 13.5 %vol (16.0-22.0); Oxyhemoglobin 93.8 % THb (90.0-100.0); PCO2 ABG 44.6 mmHg (35.0-45.0); PO2 ABG 71.3 mmHg (80.0-100.0); PO2 FiO2 Ratio Arterial Blood 2.38 %; Reduced Hemoglobin 5.6 %THb (0-5.0); Total Hemoglobin 10.2 g/dL (12.0-18.0); pH ABG 7.459 (7.350-7.450)
[2020-04-08 04:42] LABS: Arterial Blood Gas PEEP 5 cmH2O; Arterial Blood Gas Tidal Volume 500 ml; Arterial Blood Gas Vent Mode CMV; Arterial Blood Gas Ventilator rate 18 /MIN; Device VENTILATOR; Modified Allen's Test Pass; Site Drawn RIGHT RADIAL
[2020-04-08] MEDS: CENTRAL LINE FLUSH 10 ML IV PUSH ×4 (05:23→20:10)
[2020-04-08 05:27] LABS: Hematocrit 27.3 % (42.0-52.0); Hemoglobin 8.9 g/dL (14.0-18.0); Mean Corpuscular HGB Conc 32.6 g/dl (32-36); Mean Corpuscular Hemoglobin 31.3 pg (26-34); Mean Corpuscular Volume 96.1 fl (80-100); Platelet Count Result 177 k/mm3 (150-375); Red Blood Count 2.84 M/mm3 (4.6-6.20); Red Cell Distribution Width 14.5 % (11.5-14.5)
[2020-04-08 05:38] LABS: Prothrombin Time 13.9 Seconds (11.1-14.7)
[2020-04-08 05:39] LABS: Partial Thromboplastin Time 22.2 SECONDS (22.3-36.8)
[2020-04-08 05:43] LABS: Lactic Acid Reflex 1.3 mmol/L (0.7-2.1)
[2020-04-08 05:45] LABS: Alanine Aminotransferase 17 U/L (4-50); Albumin Level 2.3 g/dL (3.5-5.1); Alkaline Phosphatase 68 U/L (38-126); Anion Gap -1 mmol/L (8-16); Aspartate Amino Transferase 40 U/L (17-59); Bilirubin,Total 0.3 mg/dL (0.2-1.3); Blood Urea Nitrogen 36 mg/dL (9-20); Calcium 8.9 mg/dL (8.4-10.2); Carbon Dioxide 38 mmol/L (22-30); Chloride 97 mmol/L (98-107); Estimated CRCL calculation 115 ml/min; Estimated Glomerular Filt Rate > 60; Glucose 345 mg/dL (75-110); Magnesium 2.7 mg/dL (1.6-2.3); Phosphorus 2.4 mg/dL (2.5-4.5); Potassium 4.5 mmol/L (3.4-5.0); Sodium 134 mmol/L (137-145)
[2020-04-08] MEDS: INSULIN ASPART (*BKC) 100 UNITS/ML SUB-Q (06:24)
[2020-04-08] MEDS: NOREPINEPHRINE BITARTRATE 16 MG in DEXTROSE 5% IN WATER 234 ML 11.25 ML IV CONT (06:41)
--- NOTE | 2020-04-08 07:00 | WPDINTPN ---
Progress Note: A&P Assessment and Plan (1) Respiratory failure: Qualifiers: Chronicity: acute Respiratory failure complication: unspecified whether with hypoxia or hypercapnia Qualified Code(s): J96.00 - Acute respiratory failure, unspecified whether with hypoxia or hypercapnia Code(s): J96.90 - Respiratory failure, unspecified, unspecified whether with hypoxia or hypercapnia Status: Acute Assessment and Plan: Chest x-ray, vent settings and ABG reviewed Advance ET tube by 2 cm Weaning trial today Will likely need diuresis eventually but will hold at this time as patient is still on Levophed (2) Shock: Code(s): R57.9 - Shock, unspecified Status: Acute Assessment and Plan: Improving. Patient received IV fluids and multiple blood products despite which he remains on epinephrine, Levophed, vasopressin, phenylephrine, dopamine -lactic acid now normalized -off of all other pressors except Levophed -off IV fluids now -wound culture 04/03 growing Pseudomonas -blood cultures X2 -continue imipenem. Off vancomycin -off of stress dose steroids now (3) GI bleed: Qualifiers: GI bleed type/associated pathology: unspecified gastrointestinal hemorrhage type Qualified Code(s): K92.2 - Gastrointestinal hemorrhage, unspecified Code(s): K92.2 - Gastrointestinal hemorrhage, unspecified Status: Acute Assessment and Plan: Patient with GI bleed, status post EGD 04/04, mild duodenitis, Dieulafoy's lesion, clipping x1 to control hemorrhage -continue Protonix 80 mg IV q.12 hours -GI following closely -hemoglobin stable at this time (4) Syncope: Code(s): R55 - Syncope and collapse Status: Acute Assessment and Plan: Syncope could be related to hypotension, GI bleed, shock -troponin negative times x1 (5) Insulin dependent type 2 diabetes mellitus: Code(s): E11.9 - Type 2 diabetes mellitus without complications; Z79.4 - snf (current) use of insulin Status: Acute Assessment and Plan: Uncontrolled. Continue Levemir Will we start insulin infusion (6) Paroxysmal atrial fibrillation: Code(s): I48.0 - Paroxysmal atrial fibrillation Status: Acute Assessment and Plan: Proximal AFib currently paced rhythm rate controlled, continue to monitor -patient was on Eliquis at home which is currently on hold due to GI bleed (7) Anemia: Code(s): D64.9 - Anemia, unspecified Status: Acute Assessment and Plan: Anemia secondary to GI blood loss -hemoglobin remains stable -continue to monitor (8) NURY (acute kidney injury): Code(s): N17.9 - Acute kidney failure, unspecified Status: Acute Assessment and Plan: Acute kidney injury will likely related to shock, hypovolemia, ATN infection -adequately fluid-resuscitated, also received blood products -improved -continue monitor urine output, renal function electrolytes (9) Hyponatremia: Code(s): E87.1 - Hypo-osmolality and hyponatremia Status: Acute Assessment and Plan: Improved (10) Electrolyte abnormality: Code(s): E87.8 - Other disorders of electrolyte and fluid balance, not elsewhere classified Status: Acute Assessment and Plan: Replace low phosphate Additional Plan Will discuss with GI regarding resumption of tube feeds if patient remains on ventilator DVT prophylaxis -SCDs Stress ulcer prophylaxis -PPI Code Status - Full Code Critical care time spent: 32 minutes Due to a high probability of clinically significant, life threatening deterioration, the patient required my highest level of preparedness to intervene emergently and I personally spent this critical care time directly and personally managing the patient. This critical care time included obtaining a history; examining the patient; pulse oximetry; ordering and review of studies; arranging urgent treatment with development of a management p
[2020-04-08] MEDS: INSULIN GLARGINE (*BKC) 100 UNITS/ML 30 UNITS SUB-Q (08:14)
[2020-04-08] MEDS: PANTOPRAZOLE SODIUM IV 40 MG VIAL 80 MG IV PUSH ×2 (08:14→20:10)
[2020-04-08] MEDS: SILVERGEL (ELTA) 45 ML 1 APPLIC TOPICAL (08:14)
[2020-04-08] MEDS: FENTANYL 2,500MCG/NS250ML(*CRX 2,500 MCG/250 ML BAG 15 MCG IV CONT (08:30)
--- NOTE | 2020-04-08 08:41 | PM.IMPN ---
Progress Note: A&P Assessment and Plan (1) Shock: Code(s): R57.9 - Shock, unspecified Status: Acute Assessment and Plan: Possible sepsis due to wound infection (pseudomonas) Continue imipenem per ID recommendations Less likely due to GI blood loss 04/06: Weaning pressors, currently on NE, Dopa, vaso (stop latter 2) (2) Hyponatremia: Code(s): E87.1 - Hypo-osmolality and hyponatremia Status: Acute Assessment and Plan: 04/05 received 3% saline 04/06 Na improved from 120 to 123 Continue to monitor (3) Acute blood loss anemia: Code(s): D62 - Acute posthemorrhagic anemia Status: Acute Assessment and Plan: Stable since EGD and clipping of possible Dieulafoy ulcer 04/06: Hgb 8.3 (4) GI bleed: Qualifiers: GI bleed type/associated pathology: unspecified gastrointestinal hemorrhage type Qualified Code(s): K92.2 - Gastrointestinal hemorrhage, unspecified Code(s): K92.2 - Gastrointestinal hemorrhage, unspecified Status: Acute Assessment and Plan: EGD with duodenitis Continue BID protonix (5) Acute hyponatremia: Code(s): E87.1 - Hypo-osmolality and hyponatremia Status: Acute (6) Severe sepsis: Code(s): A41.9 - Sepsis, unspecified organism; R65.20 - Severe sepsis without septic shock Status: Acute (7) Paroxysmal atrial fibrillation: Code(s): I48.0 - Paroxysmal atrial fibrillation Status: Acute Assessment and Plan: Anticoagulation on hold due to GI bleed (8) NURY (acute kidney injury): Code(s): N17.9 - Acute kidney failure, unspecified Status: Acute Assessment and Plan: Resolved 04/06 creatinine 1.1 (9) Hypertension: Qualifiers: Hypertension type: unspecified Qualified Code(s): I10 - Essential (primary) hypertension Code(s): I10 - Essential (primary) hypertension Status: Acute Assessment and Plan: Holding meds due to shock Additional Plan The patient has been admitted to the hospitalist service with Dr. Garg (Gastroenterology) consulting for further management of presumed upper GI bleed. His hemoglobin and hematocrit will be monitored closely and he will be transfused to a stable hemoglobin. hgb is better after transfusion. Will monitor closely.. Subjective Date/time seen: 04/08/20 08:41 Interval history: Patient is seen during the morning rounds today. Intubated and sedated Patient remains intubated on 50% FiO2, peep of 5 on CMV mode of ventilation. Sodium levels dropped to 1117 from 05/23 yesterday. Patient remains on epinephrine, Rock-Synephrine, dopamine, vasopressin and Levophed infusion. Patient much improved, weaning vasopressors quickly. Urine output has been adequate with creatinine trending down. LFTs within normal limits. White count trending down, currently 42.2. Patient is afebrile. Sedated with fentanyl and Versed, opens his eyes but does not follow simple commands Review of Systems Review of Systems: ROS unobtainable: Yes unobtainable due to endotracheal tube and unobtainable due to medical condition Exam Narrative: Exam Narrative: HEENT: EOMI, PERRL, sclerae nonicteric, pharyngeal mucosa pink and intact NECK: No JVD CHEST: Decreased BS HEART: NL S1/S2, regular, no murmur ABDOMEN: BS+, soft, nontender, no mass, no bruits EXTREMITIES: Diffuse 1-2+ edema NEUROLOGIC: CN intact and symmetric to inspection. MUSCULOSKELETAL: Tone symmetric. PSYCH: Drowsy. Does not respond to noxious stimuli. Objective Data Vital Signs Vital Signs: Vital Signs - 24 hr 04/07/20 10:00 04/07/20 11:08 04/07/20 11:47 Temperature 36.6 C Pulse Rate 75 75 75 Respiratory Rate 18 18 Blood Pressure 123/53 L 123/52 L Pulse Oximetry 97 97 97 04/07/20 12:00 04/07/20 12:04 04/07/20 13:24 Temperature 36.6 C 37.0 C 36.7 C Pulse Rate 75 77 75 Respiratory Rate 21 H 18 18 Blood Pressure 126/52 L 124/70 123/68
[2020-04-08] MEDS: INSULIN HUMAN REGULAR (*BKC) 100 UNITS in SODIUM CHLORIDE 0.9% IV 99 ML 5.7 UNITS IV CONT (09:52)
[2020-04-08] MEDS: SODIUM PHOSPHATE 20 MM in DEXTROSE 5% IN WATER 250 ML 50 MM IVPB (09:57)
[2020-04-08 10:40] LABS: Alveolar/Arterial O2 Gradient 80.3 mmHg; Arterial Blood Gas PEEP 5 cmH2O; Arterial Blood Gas Vent Mode SPONTANEOUS; Base Excess ABG 5.9 mEq/l (+/-2.0); Carboxyhemoglobin 0.3 % THb (0-2.0); Device VENTILATOR; Fractional Inspired Oxygen 30 %; HCO3 ABG 31.4 mEq/l (22.0-26.0); Methemoglobin ABG 0.1 %THb (0-1.5); Modified Allen's Test Pass; Oxygen Content ABG 13.5 %vol (16.0-22.0); Oxyhemoglobin 93.3 % THb (90.0-100.0); PCO2 ABG 50.2 mmHg (35.0-45.0); PO2 ABG 74.6 mmHg (80.0-100.0); PO2 FiO2 Ratio Arterial Blood 2.49 %; Reduced Hemoglobin 6.3 %THb (0-5.0); Site Drawn RIGHT RADIAL; Total Hemoglobin 10.2 g/dL (12.0-18.0); pH ABG 7.414 (7.350-7.450)
[2020-04-08 10:41] LABS: Arterial Blood Gas Pressure Support 5 cmH2O
--- NOTE | 2020-04-08 11:10 | PCDIET ---
ICU Rounding Note: Patient tolerating Glucerna 1.2 at 80mL/hr goal rate, per RN. Plan for breathing trial today. Last recorded weight is 213kg which is increased from last review. Bowel Motility: +BM on 04/07/20. Labs Reviewed: Hgb (8.9), Hct (27.3), Glu (345), BUN (36), Na (134), Alb (2.3), PO4 (2.4) Meds Noted: Fentanyl, Lantus, Imipenem, Versed, Sodium Phosphate, Novolog, Levophed, IV Aspart, Protonix Additional Notes: +Edema, per RN. 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 Following daily in ICU rounds. Assessing/reassessing every Wednesday/Wednesday.
--- NOTE | 2020-04-08 11:45 | WPDGIPROGNO ---
Progress Note: A&P Additional Plan Patient is seen today in Dr. Garg's absence. Nursing staff reports no active bleeding. Apparently some blood was noted in stool yesterday received a transfusion. Patient remains intubated on the ventilator. Under COVID precautions. Labs reveal hemoglobin 8.9, stable this morning. Impression 1. GI bleeding. Attributed to Dieulafoy's lesion. This was clipped by endoscopy on . Will continue to monitor hemoglobin closely. Continue Protonix. No repeat endoscopy at this time however consider this if additional Active bleeding noted. Subjective Date/time seen: 04/08/20 11:45 Objective Data Vital Signs Vital Signs: Vital Signs - 24 hr 04/07/20 11:47 04/07/20 12:00 04/07/20 12:04 Temperature 98 F 98 F 98.6 F Pulse Rate 75 75 77 Respiratory Rate 18 21 H 18 Blood Pressure 123/52 L 126/52 L 124/70 Pulse Oximetry 97 96 97 04/07/20 13:24 04/07/20 13:40 04/07/20 14:00 Temperature 98.1 F 98.2 F Pulse Rate 75 75 75 Respiratory Rate 18 18 18 Blood Pressure 123/68 123/70 123/70 Pulse Oximetry 97 97 97 04/07/20 14:23 04/07/20 15:28 04/07/20 16:00 Temperature 98.2 F Pulse Rate 75 75 75 Respiratory Rate 18 18 Blood Pressure 97/59 L Pulse Oximetry 97 97 04/07/20 16:50 04/07/20 17:24 04/07/20 18:00 Temperature Pulse Rate 75 75 75 Respiratory Rate 18 18 Blood Pressure 102/59 L Pulse Oximetry 100 97 04/07/20 19:42 04/07/20 20:00 04/07/20 22:00 Temperature 98.9 F 99.1 F Pulse Rate 75 75 75 Respiratory Rate 18 18 Blood Pressure 104/59 L 111/62 Pulse Oximetry 99 98 98 04/07/20 23:15 04/08/20 00:00 04/08/20 01:55 Temperature Pulse Rate 75 75 75 Respiratory Rate 18 Blood Pressure 110/55 L Pulse Oximetry 98 98 97 04/08/20 02:00 04/08/20 04:00 04/08/20 04:25 Temperature Pulse Rate 75 75 78 Respiratory Rate 18 18 Blood Pressure 116/81 114/70 Pulse Oximetry 99 98 97 04/08/20 06:00 04/08/20 06:41 04/08/20 07:15 Temperature Pulse Rate 75 75 75 Respiratory Rate 18 18 Blood Pressure 114/72 109/63 118/62 Pulse Oximetry 98 04/08/20 07:50 04/08/20 08:00 04/08/20 08:25 Temperature 97.6 F Pulse Rate 75 75 Respiratory Rate 18 Blood Pressure 120/59 L Pulse Oximetry 98 98 98 04/08/20 08:30 04/08/20 08:38 04/08/20 08:39 Temperature Pulse Rate 75 76 75 Respiratory Rate 18 18 18 Blood Pressure Pulse Oximetry 04/08/20 09:30 04/08/20 10:00 04/08/20 11:15 Temperature Pulse Rate 80 75 75 Respiratory Rate 20 Blood Pressure 125/59 L 122/59 L 129/59 L Pulse Oximetry 99 98 04/08/20 11:23 Temperature Pulse Rate 75 Respiratory Rate Blood Pressure Pulse Oximetry 98 Intake/Output Intake/Output: Intake & Output 04/05/20 04/06/20 04/07/20 04/08/20 23:59 23:59 23:59 23:59 Intake Total 7455.6 2160 3765 1460 Output Total 3575 5575 4850 1600 Balance 3880.6 -3415 -1085 -140 Meds/Results Medications: Active Medications Generic Name Dose Route Start Last Admin Trade Name Freq PRN Reason Stop Dose Admin Dextrose 12.5 gm 04/06/20 10:42 Dextrose 50% 25 Gm/50 Ml Syringe IV PUSH PRN PRN Hypoglycemia Protocol Glucagon 1 mg 04/06/20 10:42 Glucagon For Inj 1 Mg Vial IM PRN PRN Hypoglycemia Protocol Glucose 15 gm 04/06/20 10:42 Glucose Oral Gel 15 Gm Of Glucse In 37.5 Gm Tube PO PRN PRN Hypoglycemia Protocol Imipenem/Cilastatin Sodium 500 500 mg in 100 mls @ 300 mls/hr 04/04/20 08:00 04/08/20 08:00 mg/ Sodium Chloride IVPB Not Given Q6H BRENT Norepinephrine Bitartrate 16 250 mls @ 7.5 mls/hr 04/04/20 11:00 04/08/20 11:15 mg/ Dextrose IV CONT 8 mcg/min .[id number] BRENT 7.5 mls/hr Titration Protocol 8 MCG/MIN Fentanyl Citrate 2,500 mcg in 250 mls @ 0 mls/hr 04/04/20 12:20 04/08/20 10:00 Fentanyl 2,500 Mcg/Ns 250 Ml IV CONT 0 mcg/hr .Q0M BRENT 0 mls/hr Infusio
[2020-04-08] MEDS: FUROSEMIDE INJ 40 MG/4 ML VIAL IV PUSH (11:53)
[2020-04-08] MEDS: NOREPINEPHRINE BITARTRATE 16 MG in DEXTROSE 5% IN WATER 234 ML IV CONT (14:00)
--- NOTE | 2020-04-08 14:39 | WPDINFPN2 ---
Progress Note: A&P Assessment and Plan (1) Shock: Code(s): R57.9 - Shock, unspecified Status: Acute Assessment and Plan: 1. Shock 2. Severe hyponatremia , nearly resolved 3. R foot wound, exam not impressive for soft tissue nor deep space infection. WBC improving steadily. REC Imipenem #6, continue. Off Vanc. Further imaging once he can provide history. Subjective Date/time seen: 04/08/20 14:39 Interval history: sedated, norepi 6 mcg Exam Narrative: Exam Narrative: appears ill, obese. Afebrile Eyes: General: appearance normal, both eyes and all related structures Resp: Effort & Inspection: normal respiratory effort Auscultation: clear to auscultation bilaterally and diminished lung sounds Cardio: Rate: regular rate Rhythm: regular rhythm Heart sounds: no murmurs GI: Inspection: distended GI Palp: No Tenderness to palpation present (GI) and No Guarding due to palpation present (GI) Urinary Catheter: Urinary Catheter: patent and draining and urine clear Skin: General skin exam: no rashes or lesions noted Other: erythema L foot. 3 + edema both feet. Objective Data Vital Signs Vital Signs: Vital Signs - 24 hr 04/07/20 15:28 04/07/20 16:00 04/07/20 16:50 Temperature 36.8 C Pulse Rate 75 75 75 Respiratory Rate 18 18 Blood Pressure 97/59 L Pulse Oximetry 97 100 04/07/20 17:24 04/07/20 18:00 04/07/20 19:42 Temperature Pulse Rate 75 75 75 Respiratory Rate 18 18 Blood Pressure 102/59 L Pulse Oximetry 97 99 04/07/20 20:00 04/07/20 22:00 04/07/20 23:15 Temperature 37.2 C 37.3 C Pulse Rate 75 75 75 Respiratory Rate 18 18 Blood Pressure 104/59 L 111/62 Pulse Oximetry 98 98 98 04/08/20 00:00 04/08/20 01:55 04/08/20 02:00 Temperature Pulse Rate 75 75 75 Respiratory Rate 18 18 Blood Pressure 110/55 L 116/81 Pulse Oximetry 98 97 99 04/08/20 04:00 04/08/20 04:25 04/08/20 06:00 Temperature Pulse Rate 75 78 75 Respiratory Rate 18 18 Blood Pressure 114/70 114/72 Pulse Oximetry 98 97 98 04/08/20 06:41 04/08/20 07:15 04/08/20 07:50 Temperature Pulse Rate 75 75 Respiratory Rate 18 Blood Pressure 109/63 118/62 Pulse Oximetry 98 04/08/20 08:00 04/08/20 08:25 04/08/20 08:30 Temperature 36.4 C Pulse Rate 75 75 75 Respiratory Rate 18 18 Blood Pressure 120/59 L Pulse Oximetry 98 98 04/08/20 08:38 04/08/20 08:39 04/08/20 09:30 Temperature Pulse Rate 76 75 80 Respiratory Rate 18 18 Blood Pressure 125/59 L Pulse Oximetry 99 04/08/20 10:00 04/08/20 11:15 04/08/20 11:23 Temperature Pulse Rate 75 75 75 Respiratory Rate 20 Blood Pressure 122/59 L 129/59 L Pulse Oximetry 98 98 04/08/20 12:00 04/08/20 13:00 04/08/20 14:00 Temperature 36.8 C Pulse Rate 75 75 75 Respiratory Rate 20 19 Blood Pressure 127/57 L 136/60 124/57 L Pulse Oximetry 100 99 Intake/Output Intake/Output: Intake & Output 04/05/20 04/06/20 04/07/20 04/08/20 23:59 23:59 23:59 23:59 Intake Total 7455.6 2160 3765 1460 Output Total 3575 5575 4850 1600 Balance 3880.6 -3415 -1085 -140 Meds/Results Medications: Active Medications Generic Name Dose Route Start Last Admin Trade Name Freq PRN Reason Stop Dose Admin Dextrose 12.5 gm 04/06/20 10:42 Dextrose 50% 25 Gm/50 Ml Syringe IV PUSH PRN PRN Hypoglycemia Protocol Glucagon 1 mg 04/06/20 10:42 Glucagon For Inj 1 Mg Vial IM PRN PRN Hypoglycemia Protocol Glucose 15 gm 04/06/20 10:42 Glucose Oral Gel 15 Gm Of Glucse In 37.5 Gm Tube PO PRN PRN Hypoglycemia Protocol Imipenem/Cilastatin Sodium 500 500 mg in 100 mls @ 300 mls/hr 04/04/20 08:00 04/08/20 14:26 mg/ Sodium Chloride IVPB 300 mls/hr Q6H BRENT Administration Fentanyl Citrate 2,500 mcg in 250 mls @ 0 mls/hr 04/04/20 12:20 04/08/20 10:00 Fentanyl 2,500 Mcg/Ns 250 Ml IV CONT 0 mcg/hr .Q0M BRENT 0 mls/hr Infusion Midazolam H
--- NOTE | 2020-04-08 18:15 | PM.PNNEP ---
Progress Note: A&P Assessment and Plan (1) Hyponatremia: Code(s): E87.1 - Hypo-osmolality and hyponatremia Status: Acute Assessment and Plan: somewhat of a chronic issues as had low sodium levels as far back as October 2019 so has an acute and chronic component to this problem etiology of chronic component not clear - probably some underlying free water excretion defect: - X-rays negative - no history of cancer/malignancy - no obvious medication issues - TSH normal - cortisol is okay acute component related large amount of free water he was getting from multiple drips and IVPBs/IV medications... he has already been switched from D5W to normal saline carrier fluid in as many meds/drips...etc as possible s/p 3% saline x 1 with appropriate increase in sodium now on normal saline tube flushes as well (q6hr flushes) follow trend of repeat sodiums - incrementing appropriately (2) NURY (acute kidney injury): Code(s): N17.9 - Acute kidney failure, unspecified Status: Acute Assessment and Plan: resolving due to shock and need for pressors making good urine output and creatinine improving continue supportive therapy (3) Shock: Code(s): R57.9 - Shock, unspecified Status: Acute Assessment and Plan: on pressor therapy etiology - infection versus cardiac issues versus others on IV antibiotic therapy follow culture data Will continue to follow. Subjective Date/time seen: 04/08/20 18:15 Remains intubated/sedated at the time of my visit; weaned off all pressors except levophed; acceptable hemodynamics noted; slow and steady improvement in sodium level with interventions to date; no other events overnight or earlier this AM. Exam Narrative: Exam Narrative: General: ill appearing male in NAD (intubated/sedated) Heart: normal S1 and S2; no rub Lungs: decreased breath sounds Abdomen: soft, nontender, nondistended, positive bowel sounds Extremities: no cyanosis or clubbing; 1 - 2+ edema Skin: warm and intact Objective Data Vital Signs Vital Signs: Vital Signs Temp Pulse Resp BP Pulse Ox 04/08/20 18:00 75 127/59 L 04/08/20 17:08 79 98 04/08/20 16:00 37.1 C 75 22 H 141/60 H 97 04/08/20 14:37 75 100 04/08/20 14:00 75 19 124/57 L 99 04/08/20 13:00 75 136/60 04/08/20 12:00 36.8 C 75 20 127/57 L 100 04/08/20 11:23 75 98 04/08/20 11:15 75 129/59 L 04/08/20 10:00 75 20 122/59 L 98 04/08/20 09:30 80 125/59 L 99 04/08/20 08:39 75 18 04/08/20 08:38 76 18 04/08/20 08:30 75 18 04/08/20 08:25 75 98 04/08/20 08:00 36.4 C 75 18 120/59 L 98 04/08/20 07:50 98 04/08/20 07:15 75 18 118/62 04/08/20 06:41 75 109/63 04/08/20 06:00 75 18 114/72 98 04/08/20 04:25 78 97 04/08/20 04:00 75 18 114/70 98 04/08/20 02:00 75 18 116/81 99 04/08/20 01:55 75 97 04/08/20 00:00 75 18 110/55 L 98 04/07/20 23:15 75 98 04/07/20 22:00 37.3 C 75 18 111/62 98 04/07/20 20:00 37.2 C 75 18 104/59 L 98 04/07/20 19:42 75 99 Intake/Output Intake/Output: Intake & Output 04/05/20 04/06/20 04/07/20 04/08/20 23:59 23:59 23:59 23:59 Intake Total 7455.6 2160 3765 2925.667 Output Total 3575 5575 4850 4125 Balance 3880.6 -3415 -1085 -1199.333 Meds/Results Medications: Active Medications Generic Name Dose Route Start Last Admin Trade Name Freq PRN Reason Stop Dose Admin Dextrose 12.5 gm 04/06/20 10:42 Dextrose 50% 25 Gm/50 Ml Syringe IV PUSH PRN PRN Hypoglycemia Protocol Glucagon 1 mg 04/06/20 10:42 Glucagon For Inj 1 Mg Vial IM PRN PRN Hypoglycemia Protocol Glucose 15 gm 04/06/20 10:42 Glucose Oral Gel 15 Gm Of Glucse In 37.5 Gm Tube PO PRN PRN Hypoglycemia Protocol
[2020-04-08 18:20] LABS: Glucose Point of Care 370 (65-105)
[2020-04-08 18:20] LABS: Glucose Point of Care 359 (65-105)
[2020-04-08 18:20] LABS: Glucose Point of Care 304 (65-105)
[2020-04-08 18:20] LABS: Glucose Point of Care 377 (65-105)
[2020-04-08 18:20] LABS: Glucose Point of Care 382 (65-105)
[2020-04-08 18:20] LABS: Glucose Point of Care 323 (65-105)
[2020-04-08 18:20] LABS: Glucose Point of Care 253 (65-105)
[2020-04-08 18:20] LABS: Glucose Point of Care 362 (65-105)
[2020-04-08 18:20] LABS: Glucose Point of Care 274 (65-105)
[2020-04-08] MEDS: INSULIN HUMAN REGULAR (*BKC) 100 UNITS in SODIUM CHLORIDE 0.9% IV 99 ML 15.6 UNITS IV CONT (19:03)
[2020-04-08] MEDS: TOLNAFTATE 1% POWDER 45 GM BTL 1 APPLIC TOPICAL (22:08)
[2020-04-09] VITALS (23 sets, daily range): BP systolic 94–143; BP diastolic 54–79; PULSE 72–88; RESP 18–30; TEMP 36.9–37.7; O2SAT 93–99
[2020-04-09] MEDS: INSULIN HUMAN REGULAR (*BKC) 100 UNITS in SODIUM CHLORIDE 0.9% IV 99 ML 9 UNITS IV CONT (00:03)
[2020-04-09 00:08] LABS: Glucose Point of Care 187 (65-105)
[2020-04-09 00:08] LABS: Glucose Point of Care 142 (65-105)
[2020-04-09 00:08] LABS: Glucose Point of Care 155 (65-105)
[2020-04-09 00:08] LABS: Glucose Point of Care 162 (65-105)
[2020-04-09 00:08] LABS: Glucose Point of Care 229 (65-105)
[2020-04-09 00:08] LABS: Glucose Point of Care 233 (65-105)
[2020-04-09 03:33] LABS: Hematocrit 28.8 % (42.0-52.0); Hemoglobin 9.3 g/dL (14.0-18.0); Mean Corpuscular HGB Conc 32.3 g/dl (32-36); Mean Corpuscular Hemoglobin 31.8 pg (26-34); Mean Corpuscular Volume 98.6 fl (80-100); Mean Platelet Volume 9.6 fl (7.4-10.4); Platelet Count Result 176 k/mm3 (150-375); Red Blood Count 2.92 M/mm3 (4.6-6.20); Red Cell Distribution Width 15.8 % (11.5-14.5); White Blood Count 16.7 K/mm3 (4.5-10.0)
[2020-04-09 03:45] LABS: INR 1.1; Partial Thromboplastin Time 24.4 SECONDS (22.3-36.8); Prothrombin Time 14.7 Seconds (11.1-14.7)
[2020-04-09 03:46] LABS: Lactic Acid Reflex 1.2 mmol/L (0.7-2.1)
[2020-04-09 03:47] LABS: Alanine Aminotransferase 24 U/L (4-50); Albumin Level 2.5 g/dL (3.5-5.1); Alkaline Phosphatase 61 U/L (38-126); Anion Gap 1 mmol/L (8-16); Aspartate Amino Transferase 91 U/L (17-59); Bilirubin,Total 0.3 mg/dL (0.2-1.3); Blood Urea Nitrogen 34 mg/dL (9-20); Calcium 9.1 mg/dL (8.4-10.2); Carbon Dioxide 37 mmol/L (22-30); Chloride 99 mmol/L (98-107); Estimated CRCL calculation 115 ml/min; Estimated Glomerular Filt Rate > 60; Glucose 121 mg/dL (75-110); Magnesium 2.4 mg/dL (1.6-2.3); Phosphorus 3.7 mg/dL (2.5-4.5); Potassium 4.3 mmol/L (3.4-5.0); Sodium 137 mmol/L (137-145)
[2020-04-09] MEDS: CENTRAL LINE FLUSH 10 ML IV PUSH ×3 (04:42→22:01)
[2020-04-09 05:00] LABS: Alveolar/Arterial O2 Gradient 96.2 mmHg; Base Excess ABG 7.9 mEq/l (+/-2.0); Carboxyhemoglobin 0.1 % THb (0-2.0); Fractional Inspired Oxygen 30 %; HCO3 ABG 32.2 mEq/l (22.0-26.0); Methemoglobin ABG 0.2 %THb (0-1.5); Oxygen Content ABG 13.7 %vol (16.0-22.0); Oxygen Saturation ABG 94.3 % (95.0-100.0); Oxyhemoglobin 93.1 % THb (90.0-100.0); PCO2 ABG 43.9 mmHg (35.0-45.0); PO2 ABG 66.1 mmHg (80.0-100.0); Reduced Hemoglobin 6.6 %THb (0-5.0); Total Hemoglobin 10.4 g/dL (12.0-18.0); pH ABG 7.483 (7.350-7.450)
[2020-04-09 05:01] LABS: Device VENTILATOR; Modified Allen's Test Pass
[2020-04-09] MEDS: PROPOFOL IV EMULSION 100 ML 6.39 MG IV CONT (05:01)
[2020-04-09 05:02] LABS: Arterial Blood Gas PEEP 5 cmH2O; Arterial Blood Gas Tidal Volume 500 ml; Arterial Blood Gas Vent Mode ASSIST CONTROL; Arterial Blood Gas Ventilator rate 18 /MIN
[2020-04-09 05:19] LABS: Glucose Point of Care 113 (65-105)
[2020-04-09 05:19] LABS: Glucose Point of Care 123 (65-105)
[2020-04-09 05:19] LABS: Glucose Point of Care 111 (65-105)
[2020-04-09 05:19] LABS: Glucose Point of Care 133 (65-105)
[2020-04-09 05:19] LABS: Glucose Point of Care 112 (65-105)
[2020-04-09] MEDS: INSULIN GLARGINE (*BKC) 100 UNITS/ML 30 UNITS SUB-Q ×2 (08:25→08:54)
[2020-04-09] MEDS: PANTOPRAZOLE SODIUM IV 40 MG VIAL 80 MG IV PUSH ×2 (08:25→21:57)
[2020-04-09] MEDS: SILVERGEL (ELTA) 45 ML 1 APPLIC TOPICAL (08:26)
[2020-04-09] MEDS: TOLNAFTATE 1% POWDER 45 GM BTL 1 APPLIC TOPICAL ×2 (08:26→21:51)
--- NOTE | 2020-04-09 08:40 | WPDINTPN ---
Progress Note: A&P Assessment and Plan (1) Respiratory failure: Qualifiers: Chronicity: acute Respiratory failure complication: unspecified whether with hypoxia or hypercapnia Qualified Code(s): J96.00 - Acute respiratory failure, unspecified whether with hypoxia or hypercapnia Code(s): J96.90 - Respiratory failure, unspecified, unspecified whether with hypoxia or hypercapnia Status: Acute Assessment and Plan: Chest x-ray, vent settings and ABG reviewed Patient's all sedation was discontinued yesterday and he was placed on pressure support weaning trial. Did well from ventilation standpoint with adequate ABG but he was not awake enough to be extubated and was not following command. Was placed on CMV overnight but did not require any more sedation. Patient placed back PSV weaning trial this morning. Continue diuresis with Lasix (2) Shock: Code(s): R57.9 - Shock, unspecified Status: Acute Assessment and Plan: Improving. Patient received IV fluids and multiple blood products despite which he remains on epinephrine, Levophed, vasopressin, phenylephrine, dopamine -lactic acid now normalized -Levophed weaned off overnight -off IV fluids now -wound culture 04/03 growing Pseudomonas -blood cultures X2 -continue imipenem. Off vancomycin -off of stress dose steroids now - 04/09 patient's central venous catheter was re-sutured (3) GI bleed: Qualifiers: GI bleed type/associated pathology: unspecified gastrointestinal hemorrhage type Qualified Code(s): K92.2 - Gastrointestinal hemorrhage, unspecified Code(s): K92.2 - Gastrointestinal hemorrhage, unspecified Status: Acute Assessment and Plan: Patient with GI bleed, status post EGD 04/04, mild duodenitis, Dieulafoy's lesion, clipping x1 to control hemorrhage -continue Protonix 80 mg IV q.12 hours -GI following closely -hemoglobin stable at this time (4) Insulin dependent type 2 diabetes mellitus: Code(s): E11.9 - Type 2 diabetes mellitus without complications; 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 Continue insulin infusion Increase Lantus to 60 units subcu q.day (5) Paroxysmal atrial fibrillation: Code(s): I48.0 - Paroxysmal atrial fibrillation Status: Acute Assessment and Plan: Proximal AFib currently paced rhythm rate controlled, continue to monitor -patient was on Eliquis at home which is currently on hold due to GI bleed (6) Anemia: Code(s): D64.9 - Anemia, unspecified Status: Acute Assessment and Plan: Anemia secondary to GI blood loss -hemoglobin remains stable -continue to monitor (7) NURY (acute kidney injury): Code(s): N17.9 - Acute kidney failure, unspecified Status: Acute Assessment and Plan: Acute kidney injury will likely related to shock, hypovolemia, ATN infection -adequately fluid-resuscitated, also received blood products -improved -continue monitor urine output, renal function electrolytes (8) Hyponatremia: Code(s): E87.1 - Hypo-osmolality and hyponatremia Status: Acute Assessment and Plan: Improved. Continue to monitor (9) Electrolyte abnormality: Code(s): E87.8 - Other disorders of electrolyte and fluid balance, not elsewhere classified Status: Acute Assessment and Plan: Phosphate now normal after replacement yesterday Additional Plan DVT prophylaxis -SCDs. I will discuss with GI regarding starting chemoprophylaxis Stress ulcer prophylaxis -PPI Code Status - Full Code Critical care time spent: 33 minutes Due to a high probability of clinically significant, life threatening deterioration, the patient required my highest level of preparedness to intervene emergently and I personally spent this critical care time directly and personally managing the patient. This critical care time included obtaining a history; exam
[2020-04-09] MEDS: ALBUMIN HUMAN 25% 25 GM/100 ML 100 ML IVPB (08:53)
[2020-04-09] MEDS: FUROSEMIDE INJ 40 MG/4 ML VIAL IV PUSH (08:54)
--- NOTE | 2020-04-09 09:59 | PM.PNNEP ---
Progress Note: A&P Assessment and Plan (1) Hyponatremia: Code(s): E87.1 - Hypo-osmolality and hyponatremia Status: Acute Assessment and Plan: resolving (if not resolved) somewhat of a chronic issues as had low sodium levels as far back as October 2019 so has an acute and chronic component to this problem etiology of chronic component not clear - probably some underlying free water excretion defect: - X-rays negative - no history of cancer/malignancy - no obvious medication issues - TSH normal - cortisol is okay acute component related large amount of free water he was getting from multiple drips and IVPBs/IV medications... he has already been switched from D5W to normal saline carrier fluid in as many meds/drips...etc as possible s/p 3% saline x 1 with appropriate increase in sodium now on normal saline tube flushes as well (q6hr flushes) follow sodium levels -- suspect will need to switch back to free water flushes with ongoing diuresis (2) NURY (acute kidney injury): Code(s): N17.9 - Acute kidney failure, unspecified Status: Acute Assessment and Plan: resolving due to shock and need for pressors making good urine output and creatinine improving continue supportive therapy (3) Shock: Code(s): R57.9 - Shock, unspecified Status: Acute Assessment and Plan: on pressor therapy etiology - infection versus cardiac issues versus others on IV antibiotic therapy follow culture data Will continue to follow. Subjective Date/time seen: 04/09/20 09:59 Remains on ventilator support with ongoing attempts at weaning; stable hemodynamics after being weaned off levophed; no other acute issues/events overnight or earlier this AM; no distress noted. Exam Narrative: Exam Narrative: General: ill appearing male in NAD (intubated/sedated) Heart: normal S1 and S2; no rub Lungs: decreased breath sounds Abdomen: soft, nontender, nondistended, positive bowel sounds Extremities: no cyanosis or clubbing; 1 - 2+ edema Skin: warm and intact Objective Data Vital Signs Vital Signs: Vital Signs Temp Pulse Resp BP Pulse Ox 04/09/20 08:00 37.1 C 75 26 H 130/56 L 96 04/09/20 07:45 75 93 04/09/20 06:00 75 23 H 112/60 96 04/09/20 05:15 78 97 04/09/20 05:01 78 18 04/09/20 04:00 37.7 C H 75 24 H 118/58 L 96 04/09/20 02:00 75 20 94/55 L 97 04/09/20 01:56 75 97 04/09/20 00:00 37.3 C 75 19 103/55 L 97 04/08/20 23:27 77 96 04/08/20 22:00 75 21 H 104/59 L 96 04/08/20 20:33 76 97 04/08/20 20:18 75 126/59 L 04/08/20 20:00 37.5 C 75 20 120/57 L 97 04/08/20 18:00 75 127/59 L 04/08/20 17:08 79 98 04/08/20 16:00 37.1 C 75 22 H 141/60 H 97 04/08/20 14:37 75 100 04/08/20 14:00 75 19 124/57 L 99 04/08/20 13:00 75 136/60 04/08/20 12:00 36.8 C 75 20 127/57 L 100 04/08/20 11:23 75 98 04/08/20 11:15 75 129/59 L Intake/Output Intake/Output: Intake & Output 04/06/20 04/07/20 04/08/20 04/09/20 23:59 23:59 23:59 23:59 Intake Total 2160 3765 3125.667 820 Output Total 5575 4850 4125 650 Balance -1365 -1085 -999.333 170 Meds/Results Medications: Active Medications Generic Name Dose Route Start Last Admin Trade Name Freq PRN Reason Stop Dose Admin Dextrose 12.5 gm 04/06/20 10:42 Dextrose 50% 25 Gm/50 Ml Syringe IV PUSH PRN PRN Hypoglycemia Protocol Glucagon 1 mg 04/06/20 10:42 Glucagon For Inj 1 Mg Vial IM PRN PRN Hypoglycemia Protocol Glucose 15 gm 04/06/20 10:42 Glucose Oral Gel 15 Gm Of Glucse In 37.5 Gm Tube PO PRN PRN Hypoglycemia Protocol Imipenem/Cilastatin Sodium 500 500 mg in 100 mls @ 300 mls/hr 04/04/20 08:00 04/09/20 08:25 mg/ Sodium Chloride IVPB 300 mls/hr Q6H BRENT Ad
--- NOTE | 2020-04-09 10:56 | PCDIET ---
Nutrition Follow-Up Complete: Nutrition Diagnosis: Inadequate oral intake related to GI bleeding as evidenced by NPO status. Nutrition Goal: Patient to meet estimated nutritional needs. Goal met. Patient tolerating Glucerna 1.2 at 80mL/hr goal rate with 30mL water flush every 4 hours. Last recorded weight is 213.7 kg which is increased from last review. I/O negative. Will monitor. Bowel Motility: +BM today. Labs Reviewed: Hgb (9.3), Hct (28.8), Glu (121), BUN (34), Alb (2.5) Meds Noted: Fentanyl, Imipenem, Novolog, IV Aspart, Lantus, Levophed, Protonix, Propofol (rate of 6.39mL/hr provides 168kcal per day), Lasix Additional Notes: Diabetic foot ulcers, bilateral. Will continue to monitor with same goal. Nutrition Monitoring and Evaluation: Follow up every Wednesday/Wednesday.
--- NOTE | 2020-04-09 11:22 | WPDINFPN2 ---
Progress Note: A&P Assessment and Plan (1) Shock: Code(s): R57.9 - Shock, unspecified Status: Acute Assessment and Plan: 1. Shock, improving, off steroid 2. Severe hyponatremia 3. R foot wound, exam not impressive for soft tissue nor deep space infection. WBC improving steadily. REC Imipenem #7, continue. Off Vanc. Further imaging once he can provide history. BCs ng final. Subjective Date/time seen: 04/09/20 11:22 Interval history: intubated, no pressors, lightly sedated Exam Narrative: Exam Narrative: afebrile Const: General: no acute distress Resp: Effort & Inspection: normal respiratory effort Auscultation: clear to auscultation bilaterally and diminished lung sounds Cardio: Rate: regular rate Rhythm: regular rhythm Heart sounds: no murmurs GI: Inspection: non-distended GI Palp: Yes Soft to palpation and No Tenderness to palpation present (GI) Urinary Catheter: Urinary Catheter: patent and draining and urine clear Skin: General skin exam: normal color and no rashes or lesions noted Extrem: Other: 3 + edema both feet. No erythema l foot, ulcer Objective Data Vital Signs Vital Signs: Vital Signs - 24 hr 04/08/20 11:23 04/08/20 12:00 04/08/20 13:00 Temperature 36.8 C Pulse Rate 75 75 75 Respiratory Rate 20 Blood Pressure 127/57 L 136/60 Pulse Oximetry 98 100 04/08/20 14:00 04/08/20 14:37 04/08/20 16:00 Temperature 37.1 C Pulse Rate 75 75 75 Respiratory Rate 19 22 H Blood Pressure 124/57 L 141/60 H Pulse Oximetry 99 100 97 04/08/20 17:08 04/08/20 18:00 04/08/20 20:00 Temperature 37.5 C Pulse Rate 79 75 75 Respiratory Rate 20 Blood Pressure 127/59 L 120/57 L Pulse Oximetry 98 97 04/08/20 20:18 04/08/20 20:33 04/08/20 22:00 Temperature Pulse Rate 75 76 75 Respiratory Rate 21 H Blood Pressure 126/59 L 104/59 L Pulse Oximetry 97 96 04/08/20 23:27 04/09/20 00:00 04/09/20 01:56 Temperature 37.3 C Pulse Rate 77 75 75 Respiratory Rate 19 Blood Pressure 103/55 L Pulse Oximetry 96 97 97 04/09/20 02:00 04/09/20 04:00 04/09/20 05:01 Temperature 37.7 C H Pulse Rate 75 75 78 Respiratory Rate 20 24 H 18 Blood Pressure 94/55 L 118/58 L Pulse Oximetry 97 96 04/09/20 05:15 04/09/20 06:00 04/09/20 07:45 Temperature Pulse Rate 78 75 75 Respiratory Rate 23 H Blood Pressure 112/60 Pulse Oximetry 97 96 93 04/09/20 08:00 04/09/20 10:00 Temperature 37.1 C Pulse Rate 75 75 Respiratory Rate 26 H 23 H Blood Pressure 130/56 L 123/54 L Pulse Oximetry 97 98 Intake/Output Intake/Output: Intake & Output 04/06/20 04/07/20 04/08/20 04/09/20 23:59 23:59 23:59 23:59 Intake Total 2160 3765 3125.667 920 Output Total 5575 4850 4125 650 [facility] -3415 -1085 -999.333 270 Meds/Results Medications: Active Medications Generic Name Dose Route Start Last Admin Trade Name Freq PRN Reason Stop Dose Admin Dextrose 12.5 gm 04/06/20 10:42 Dextrose 50% 25 Gm/50 Ml Syringe IV PUSH PRN PRN Hypoglycemia Protocol Glucagon 1 mg 04/06/20 10:42 Glucagon For Inj 1 Mg Vial IM PRN PRN Hypoglycemia Protocol Glucose 15 gm 04/06/20 10:42 Glucose Oral Gel 15 Gm Of Glucse In 37.5 Gm Tube PO PRN PRN Hypoglycemia Protocol Imipenem/Cilastatin Sodium 500 500 mg in 100 mls @ 300 mls/hr 04/04/20 08:00 04/09/20 08:45 mg/ Sodium Chloride IVPB Infused Q6H BRENT Infusion Fentanyl Citrate 2,500 mcg in 250 mls @ 0 mls/hr 04/04/20 12:20 04/08/20 10:00 Fentanyl 2,500 Mcg/Ns 250 Ml IV CONT 0 mcg/hr .Q0M BRENT 0 mls/hr Infusion Dextrose 1,000 mls @ 100 mls/hr 04/06/20 10:42 Dextrose 5% 1,000 Ml IVPB PRN PRN Hypoglycemia Protocol Insulin Aspart 100 units/ 100 mls @ 6.7 mls/hr 04/08/20 09:00 04/09/20 06:06 Sodium Chloride IV CONT 6.7 units/hr .[id number] BRENT 6.7 mls/hr Titration Protocol 6.7 UNITS/HR Norepinephrine
[2020-04-09 11:55] LABS: HCO3 ABG 33.3 mEq/l (22.0-26.0); PCO2 ABG 49.6 mmHg (35.0-45.0); PO2 ABG 76.3 mmHg (80.0-100.0); pH ABG 7.445 (7.350-7.450)
[2020-04-09 11:56] LABS: Alveolar/Arterial O2 Gradient 79.3 mmHg; Carboxyhemoglobin 0.3 % THb (0-2.0); Device VENTILATOR; Fractional Inspired Oxygen 30 %; Methemoglobin ABG 0.1 %THb (0-1.5); Modified Allen's Test Pass; Oxygen Content ABG 15.6 %vol (16.0-22.0); Oxygen Saturation ABG 95.6 % (95.0-100.0); Oxyhemoglobin 94.3 % THb (90.0-100.0); PO2 FiO2 Ratio Arterial Blood 2.54 %; Reduced Hemoglobin 5.3 %THb (0-5.0); Site Drawn LEFT RADIAL; Total Hemoglobin 11.7 g/dL (12.0-18.0)
[2020-04-09 11:57] LABS: Arterial Blood Gas PEEP 5 cmH2O; Arterial Blood Gas Pressure Support 5 cmH2O; Arterial Blood Gas Vent Mode SPONTANEOUS
[2020-04-09] MEDS: INSULIN HUMAN REGULAR (*BKC) 100 UNITS in SODIUM CHLORIDE 0.9% IV 99 ML 6.7 UNITS IV CONT (14:15)
[2020-04-09 14:21] LABS: Glucose Point of Care 130 (65-105)
[2020-04-09 14:21] LABS: Glucose Point of Care 115 (65-105)
[2020-04-09 14:21] LABS: Glucose Point of Care 126 (65-105)
[2020-04-09 14:21] LABS: Glucose Point of Care 121 (65-105)
[2020-04-09 14:21] LABS: Glucose Point of Care 121 (65-105)
[2020-04-09 14:21] LABS: Glucose Point of Care 158 (65-105)
[2020-04-09 14:21] LABS: Glucose Point of Care 149 (65-105)
--- NOTE | 2020-04-09 16:01 | PM.IMPN ---
Progress Note: A&P Assessment and Plan (1) Shock: Code(s): R57.9 - Shock, unspecified Status: Acute Assessment and Plan: Possible sepsis due to wound infection (pseudomonas). Continue imipenem per ID recommendations. Possibly due to GI blood loss as well. Weaned off pressors. (2) GI bleed: Qualifiers: GI bleed type/associated pathology: unspecified gastrointestinal hemorrhage type Qualified Code(s): K92.2 - Gastrointestinal hemorrhage, unspecified Code(s): K92.2 - Gastrointestinal hemorrhage, unspecified Status: Acute Assessment and Plan: Hgb 8.8 on admission. He recieved a total of 8U PRBC, 1 FFP and 1 Cryo. Last transfusion was 04/07. EGD 04/04 showing duodenitis with Dieulafoy's. Continue BID protonix. (3) Acute blood loss anemia: Code(s): D62 - Acute posthemorrhagic anemia Status: Acute Assessment and Plan: As above. Hgb stable since EGD and clipping of possible Dieulafoy's vascular anomaly. Hgb 9.3 today (4) Acute hyponatremia: Code(s): E87.1 - Hypo-osmolality and hyponatremia Status: Acute Assessment and Plan: Na 123 on admission. 04/05 received 3% saline. Na better today at 137 (5) Severe sepsis: Code(s): A41.9 - Sepsis, unspecified organism; R65.20 - Severe sepsis without septic shock Status: Acute Assessment and Plan: Severe sepsis with shock. As above. (6) Paroxysmal atrial fibrillation: Code(s): I48.0 - Paroxysmal atrial fibrillation Status: Acute Assessment and Plan: Rate controlled. Anticoagulation on hold due to GI bleed. (7) NURY (acute kidney injury): Code(s): N17.9 - Acute kidney failure, unspecified Status: Acute Assessment and Plan: Resolved. 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 Remains on insulin gtt and Lantus Continue AccuCheks covering with sliding scale. Hypoglycemia protocol available as needed. Continue current medications. (10) DVT prophylaxis: Code(s): Z29.9 - Encounter for prophylactic measures, unspecified Status: Acute Assessment and Plan: SCDs Subjective Date/time seen: 04/09/20 16:01 Interval history: Date of service 04/09 69yo male with pAFib on Xarelto, DM and HTN here for rectal bleeding and syncope. He was diagnosed with COVID on 03/18 and completed 5 days of Decadron and Azithromycin. Patient developed shock and respiratory failure. Assuming care. Chart reviewed. Patient off sedation past few days but not following commands or waking up. Review of Systems Review of Systems: ROS unobtainable: Yes unobtainable due to endotracheal tube and unobtainable due to mental status Exam Narrative: Exam Narrative: AF 98.8 139/66 78 22 97% MV, PEEP 5, 30% FiO2 Gen - intubated, unresponsive HEENT - ETT and OG secured Chest - inspiratory and expiratory rhocnhi CV - RRR S1/S2 Abd - Soft, obese - Boone secured draining clear yellow urine Ext - edematous UE and LE Neuro - opens eyes to voice, does not follow commands consistently. Psych - Nml mood and affect Skin - right lateral foot with dried eschar; left lateral foot with 1cm ulcer with purulent discharge Objective Data Vital Signs Vital Signs: Vital Signs - 24 hr 04/08/20 17:08 04/08/20 18:00 04/08/20 20:00 Temperature 99.5 F Pulse Rate 79 75 75 Respiratory Rate 20
[2020-04-09] MEDS: ENOXAPARIN 40 MG/0.4 ML SYRINGE SUB-Q (19:23)
[2020-04-09 23:20] LABS: Glucose Point of Care 115 (65-105)
[2020-04-09 23:20] LABS: Glucose Point of Care 217 (65-105)
[2020-04-09 23:20] LABS: Glucose Point of Care 108 (65-105)
[2020-04-09 23:20] LABS: Glucose Point of Care 218 (65-105)
[2020-04-09 23:20] LABS: Glucose Point of Care 112 (65-105)
[2020-04-09 23:20] LABS: Glucose Point of Care 179 (65-105)
[2020-04-09 23:20] LABS: Glucose Point of Care 155 (65-105)
[2020-04-10] VITALS (22 sets, daily range): BP systolic 88–126; BP diastolic 53–68; PULSE 75–84; RESP 15–26; TEMP 36.6–37.9; O2SAT 92–100
[2020-04-10] MEDS: INSULIN HUMAN REGULAR (*BKC) 100 UNITS in SODIUM CHLORIDE 0.9% IV 99 ML 26.3 UNITS IV CONT (00:27)
[2020-04-10 04:49] LABS: Basophils Absolute Auto 0.1 K/mm3 (0.0-0.1); Basophils Percent Auto 0.4 % (0.2-1.2); Eosinophils Absolute Auto 0.1 K/mm3 (0-0.3); Eosinophils Percent Auto 0.5 % (0-4.4); Hematocrit 28.9 % (42.0-52.0); Hemoglobin 9.3 g/dL (14.0-18.0); Immature Granulocyte Absolute 0.79 K/mm3 (0.00-0.031); Immature Granulocyte Percent A 5.4 % (0-0.5); Lymphocytes Absolute Auto 0.91 K/mm3 (0.9-3.2); Lymphocytes Percent Auto 6.3 % (18.3-44.2); Mean Corpuscular HGB Conc 32.2 g/dl (32-36); Mean Corpuscular Hemoglobin 31.5 pg (26-34); Mean Platelet Volume 9.5 fl (7.4-10.4); Monocytes Absolute Auto 1.6 K/mm3 (0.1-0.6); Monocytes Percent Auto 11.2 % (2.6-8.5); Neutrophils Absolute Auto 11.1 K/mm3 (1.3-6.7); Neutrophils Percent Auto 76.2 % (45.5-73.1); Nucleated Red Blood Cells Perc 0.2 % (0.0-0.2); Platelet Count Result 175 k/mm3 (150-375); Red Blood Count 2.95 M/mm3 (4.6-6.20); Red Cell Distribution Width 15.5 % (11.5-14.5); White Blood Count 14.6 K/mm3 (4.5-10.0)
[2020-04-10 05:13] LABS: Alanine Aminotransferase 33 U/L (4-50); Albumin Level 2.6 g/dL (3.5-5.1); Alkaline Phosphatase 58 U/L (38-126); Aspartate Amino Transferase 133 U/L (17-59); Bilirubin,Total 0.4 mg/dL (0.2-1.3); Blood Urea Nitrogen 36 mg/dL (9-20); Calcium 9.2 mg/dL (8.4-10.2); Carbon Dioxide > 40 mmol/L (22-30); Chloride 99 mmol/L (98-107); Estimated CRCL calculation 115 ml/min; Estimated Glomerular Filt Rate > 60; Glucose 117 mg/dL (75-110); Magnesium 2.3 mg/dL (1.6-2.3); Phosphorus 3.5 mg/dL (2.5-4.5); Potassium 3.9 mmol/L (3.4-5.0); Sodium 139 mmol/L (137-145)
[2020-04-10 05:46] LABS: Alveolar/Arterial O2 Gradient 83.5 mmHg; Base Excess ABG 6.9 mEq/l (+/-2.0); Carboxyhemoglobin 0.4 % THb (0-2.0); Fractional Inspired Oxygen 30 %; HCO3 ABG 30.8 mEq/l (22.0-26.0); Methemoglobin ABG 0.1 %THb (0-1.5); Oxygen Content ABG 16.4 %vol (16.0-22.0); Oxygen Saturation ABG 96.8 % (95.0-100.0); Oxyhemoglobin 94.9 % THb (90.0-100.0); PCO2 ABG 41.3 mmHg (35.0-45.0); PO2 ABG 81.9 mmHg (80.0-100.0); PO2 FiO2 Ratio Arterial Blood 2.73 %; Reduced Hemoglobin 4.6 %THb (0-5.0); Total Hemoglobin 12.2 g/dL (12.0-18.0); pH ABG 7.491 (7.350-7.450)
[2020-04-10 05:47] LABS: Arterial Blood Gas PEEP 5 cmH2O; Arterial Blood Gas Vent Mode CMV; Arterial Blood Gas Ventilator rate 18 /MIN; Device VENTILATOR; Modified Allen's Test Unable to perform; Site Drawn RIGHT RADIAL
[2020-04-10 05:48] LABS: Arterial Blood Gas Tidal Volume 500 ml
[2020-04-10] MEDS: INSULIN HUMAN REGULAR (*BKC) 100 UNITS in SODIUM CHLORIDE 0.9% IV 99 ML 7.6 UNITS IV CONT (06:06)
[2020-04-10] MEDS: CENTRAL LINE FLUSH 10 ML IV PUSH ×4 (06:07→21:19)
[2020-04-10 06:23] LABS: Large Platelets Present; Platelet Estimate Adequate (Adequate); Smudge Cells FEW
[2020-04-10 06:25] LABS: Anisocytosis 2+ (NORMAL); Basophilic Stippling 1+ (NORMAL); Hypochromasia 1+ (NORMAL); Poikilocytosis 1+ (NORMAL)
[2020-04-10 06:31] LABS: Glucose Point of Care 106 (65-105)
[2020-04-10 06:31] LABS: Glucose Point of Care 246 (65-105)
[2020-04-10 06:31] LABS: Glucose Point of Care 158 (65-105)
[2020-04-10 06:31] LABS: Glucose Point of Care 253 (65-105)
[2020-04-10 06:31] LABS: Glucose Point of Care 129 (65-105)
[2020-04-10 06:31] LABS: Glucose Point of Care 248 (65-105)
[2020-04-10 06:31] LABS: Glucose Point of Care 191 (65-105)
[2020-04-10 07:39] LABS: Glucose Point of Care 102 (65-105)
[2020-04-10] MEDS: INSULIN GLARGINE (*BKC) 100 UNITS/ML 60 UNITS SUB-Q (10:06)
[2020-04-10] MEDS: ENOXAPARIN 40 MG/0.4 ML SYRINGE SUB-Q (10:06)
[2020-04-10] MEDS: TOLNAFTATE 1% POWDER 45 GM BTL 1 APPLIC TOPICAL ×2 (10:07→21:17)
[2020-04-10] MEDS: PANTOPRAZOLE SODIUM IV 40 MG VIAL 80 MG IV PUSH ×2 (10:07→21:18)
[2020-04-10] MEDS: SILVERGEL (ELTA) 45 ML 1 APPLIC TOPICAL (10:08)
[2020-04-10] MEDS: FUROSEMIDE INJ 40 MG/4 ML VIAL IV PUSH (10:26)
[2020-04-10 10:43] LABS: Glucose Point of Care 133 (65-105)
[2020-04-10 10:43] LABS: Glucose Point of Care 82 (65-105)
--- NOTE | 2020-04-10 10:52 | WPDINTPN ---
Progress Note: A&P Assessment and Plan (1) Respiratory failure: Qualifiers: Chronicity: acute Respiratory failure complication: unspecified whether with hypoxia or hypercapnia Qualified Code(s): J96.00 - Acute respiratory failure, unspecified whether with hypoxia or hypercapnia Code(s): J96.90 - Respiratory failure, unspecified, unspecified whether with hypoxia or hypercapnia Status: Acute Assessment and Plan: Chest x-ray, vent settings and ABG reviewed Patient's all sedation was discontinued 2 days agoand he was placed on pressure support weaning trial for last 2 days. Did well from ventilation standpoint with adequate ABG but he was not awake enough to be extubated. Today he is following commands place patient back on weaning trial. Will check ABG Patient placed back PSV weaning trial this morning. Continue diuresis with Lasix (2) Shock: Code(s): R57.9 - Shock, unspecified Status: Acute Assessment and Plan: Improving. Patient received IV fluids and multiple blood products despite which he remains on epinephrine, Levophed, vasopressin, phenylephrine, dopamine -lactic acid now normalized -Levophed weaned off overnight -off IV fluids now -wound culture 04/03 growing Pseudomonas -blood cultures X2 -continue imipenem. Off vancomycin -off of stress dose steroids now - 04/09 patient's central venous catheter was re-sutured (3) GI bleed: Qualifiers: GI bleed type/associated pathology: unspecified gastrointestinal hemorrhage type Qualified Code(s): K92.2 - Gastrointestinal hemorrhage, unspecified Code(s): K92.2 - Gastrointestinal hemorrhage, unspecified Status: Acute Assessment and Plan: Patient with GI bleed, status post EGD 04/04, mild duodenitis, Dieulafoy's lesion, clipping x1 to control hemorrhage -continue Protonix 80 mg IV q.12 hours -GI following closely -hemoglobin stable at this time (4) Insulin dependent type 2 diabetes mellitus: Code(s): E11.9 - Type 2 diabetes mellitus without complications; Z79.4 - halfway (current) use of insulin Status: Acute Assessment and Plan: Uncontrolled. He was on insulin infusion which was held once tube feeds was stopped for potential extubation On Lantus to 60 units subcu q.day (5) Paroxysmal atrial fibrillation: Code(s): I48.0 - Paroxysmal atrial fibrillation Status: Acute Assessment and Plan: Proximal AFib currently paced rhythm rate controlled, continue to monitor -patient was on Eliquis at home which is currently on hold due to GI bleed (6) Anemia: Code(s): D64.9 - Anemia, unspecified Status: Acute Assessment and Plan: Anemia secondary to GI blood loss -hemoglobin remains stable -continue to monitor (7) NURY (acute kidney injury): Code(s): N17.9 - Acute kidney failure, unspecified Status: Acute Assessment and Plan: Acute kidney injury will likely related to shock, hypovolemia, ATN infection -adequately fluid-resuscitated, also received blood products -improved -continue monitor urine output, renal function electrolytes (8) Hyponatremia: Code(s): E87.1 - Hypo-osmolality and hyponatremia Status: Acute Assessment and Plan: Improved. Continue to monitor (9) Electrolyte abnormality: Code(s): E87.8 - Other disorders of electrolyte and fluid balance, not elsewhere classified Status: Acute Assessment and Plan: Phosphate now normal after replacement yesterday Additional Plan DVT prophylaxis -SCDs, Lovenox started 04/09 after discussing with GI Stress ulcer prophylaxis -PPI Code Status - Full Code Critical care time spent: 30 minutes Due to a high probability of clinically significant, life threatening deterioration, the patient required my highest level of preparedness to intervene emergently and I personally spent this critical care time directly and personally managing the patient. This
[2020-04-10 11:02] LABS: Alveolar/Arterial O2 Gradient 100.8 mmHg; Base Excess ABG 5.9 mEq/l (+/-2.0); Fractional Inspired Oxygen 30 %; HCO3 ABG 29.3 mEq/l (22.0-26.0); Oxygen Saturation ABG 95.3 % (95.0-100.0); Oxyhemoglobin 93.4 % THb (90.0-100.0); PCO2 ABG 37.7 mmHg (35.0-45.0); PO2 ABG 68.8 mmHg (80.0-100.0); PO2 FiO2 Ratio Arterial Blood 2.29 %; Total Hemoglobin 10.6 g/dL (12.0-18.0); pH ABG 7.508 (7.350-7.450)
[2020-04-10 11:04] LABS: Arterial Blood Gas PEEP 5 cmH2O; Arterial Blood Gas Pressure Support 5 cmH2O; Arterial Blood Gas Vent Mode SPONTANEOUS; Device VENTILATOR; Modified Allen's Test Pass; Site Drawn LEFT RADIAL
--- NOTE | 2020-04-10 12:00 | PCDIET ---
ICU Rounding Note: Tube feedings on hold for possible extubation. Previously tolerating Glucerna 1.2 at 80mL/hr with 30mL NS every 4 hours. Last recorded weight is 203.5kg which is down from last review. -I/O noted. Bowel Motility: +BM on 04/09/20 x 1. Labs Reviewed: Hgb (9.3), Hct (28.9), Glu (117), BUN (36), Alb (2.6) Meds Noted: Imipenem, IV Aspart, Lantus, Protonix Additional Notes: RN reports deep tissue ulcer to buttock; wound nurse consulted. Following daily in ICU rounds. Assessing/reassessing every Wednesday/Wednesday.
[2020-04-10] MEDS: IBUPROFEN SUSPENSION 200 MG/10 ML UDC 400 MG PO (13:08)
[2020-04-10 15:29] LABS: Glucose Point of Care 155 (65-105)
--- NOTE | 2020-04-10 17:37 | PM.PNNEP ---
Progress Note: A&P Assessment and Plan (1) Hyponatremia: Code(s): E87.1 - Hypo-osmolality and hyponatremia Status: Acute Assessment and Plan: resolved somewhat of a chronic issues as had low sodium levels as far back as October 2019 so has an acute and chronic component to this problem etiology of chronic component not clear - probably some underlying free water excretion defect: - X-rays negative - no history of cancer/malignancy - no obvious medication issues - TSH normal - cortisol is okay acute component related large amount of free water he was getting from multiple drips and IVPBs/IV medications... he has already been switched from D5W to normal saline carrier fluid in as many meds/drips...etc as possible s/p 3% saline x 1 with appropriate increase in sodium now on normal saline tube flushes as well (q6hr flushes) follow sodium levels -- suspect will need to switch back to free water flushes with ongoing diuresis (2) NURY (acute kidney injury): Code(s): N17.9 - Acute kidney failure, unspecified Status: Acute Assessment and Plan: resolving due to shock and need for pressors making good urine output and creatinine improving continue supportive therapy (3) Shock: Code(s): R57.9 - Shock, unspecified Status: Acute Assessment and Plan: on pressor therapy etiology - infection versus cardiac issues versus others on IV antibiotic therapy follow culture data Not much else to offer -- will continue to follow from a distance. Subjective Date/time seen: 04/10/20 17:37 Remains on ventilator but appears to be making progress in terms of weaning; remains hemodynamically stable off pressor supporti; good urine output noted; no distress noted at this time. Exam Narrative: Exam Narrative: General: ill appearing male in NAD; intubated Heart: normal S1 and S2; no rub Lungs: decreased breath sounds Abdomen: soft, nontender, nondistended, positive bowel sounds Extremities: no cyanosis or clubbing; 1+ edema Skin: no rash Objective Data Vital Signs Vital Signs: Vital Signs Temp Pulse Resp BP Pulse Ox 04/10/20 16:00 37.3 C 78 18 100/55 L 95 04/10/20 15:15 37.5 C 04/10/20 14:00 37.5 C 77 15 88/62 L 96 04/10/20 13:44 82 99 12/09/20 13:08 37.9 C H 04/10/20 12:00 37.9 C H 79 24 H 122/62 93 04/10/20 10:55 75 99 04/10/20 10:00 78 26 H 126/61 92 04/10/20 08:00 77 20 120/62 95 04/10/20 06:00 75 18 111/57 L 96 04/10/20 05:48 80 100 04/10/20 04:00 36.7 C 77 20 117/68 97 04/10/20 02:26 84 95 04/10/20 02:00 75 23 H 121/65 94 04/10/20 00:30 75 19 98 04/10/20 00:00 36.9 C 76 18 112/59 L 97 04/09/20 23:03 88 95 04/09/20 22:45 76 21 H 113/63 94 04/09/20 22:00 78 04/09/20 21:50 36.9 C 78 19 134/79 97 04/09/20 20:00 72 04/09/20 19:28 82 96 04/09/20 18:00 75 30 H 143/76 H 93 Intake/Output Intake/Output: Intake & Output 04/07/20 04/08/20 04/09/20 04/10/20 23:59 23:59 23:59 23:59 Intake Total 3765 3125.667 2108 2206 Output Total 4850 4125 2450 2600 [facility] -[phone] Meds/Results Medications: Active Medications Generic Name Dose Route Start Last Admin Trade Name Freq PRN Reason Stop Dose Admin Dextrose 12.5 gm 04/06/20 10:42 Dextrose 50% 25 Gm/50 Ml Syringe IV PUSH PRN PRN Hypoglycemia Protocol Enoxaparin Sodium 40 mg 04/09/20 15:00 04/10/20 10:06 Enoxaparin 40 Mg/0.4 Ml Syringe SUB-Q 40 mg DAILY BRENT Administration Glucagon 1 mg 04/06/20 10:42 Glucagon For Inj 1 Mg Vial IM PRN PRN Hypoglycemia Protocol Glucose 15 gm 04/06/20 10:42 Glucose Oral Gel 15 Gm Of Glucse In 37.5 Gm Tube PO PRN PRN Hypoglycemia Protocol Imipenem/Cilastatin Sodium 5
[2020-04-10 18:35] LABS: Glucose Point of Care 185 (65-105)
--- NOTE | 2020-04-10 21:16 | PM.IMPN ---
Progress Note: A&P Assessment and Plan (1) Shock: Code(s): R57.9 - Shock, unspecified Status: Acute Assessment and Plan: Possible sepsis due to wound infection (pseudomonas). Continue imipenem per ID recommendations. Possibly due to GI blood loss as well. Weaned off pressors. (2) GI bleed: Qualifiers: GI bleed type/associated pathology: unspecified gastrointestinal hemorrhage type Qualified Code(s): K92.2 - Gastrointestinal hemorrhage, unspecified Code(s): K92.2 - Gastrointestinal hemorrhage, unspecified Status: Acute Assessment and Plan: Hgb 8.8 on admission. He recieved a total of 8U PRBC, 1 FFP and 1 Cryo. Last transfusion was 04/07. EGD 04/04 showing duodenitis with Dieulafoy's. Continue BID protonix. (3) Cellulitis of foot, right: Code(s): L03.115 - Cellulitis of right lower limb Status: Acute Assessment and Plan: Right foot wound cellulitis. Also with left wound as well. Cx growing pseudomonas. Continue Primaxin. Continue dressing changes. (4) Acute blood loss anemia: Code(s): D62 - Acute posthemorrhagic anemia Status: Acute Assessment and Plan: As above. Hgb stable since EGD and clipping of possible Dieulafoy's vascular anomaly. Hgb 9.3 today (5) Acute hyponatremia: Code(s): E87.1 - Hypo-osmolality and hyponatremia Status: Acute Assessment and Plan: Na 123 on admission. 04/05 received 3% saline. Na normal today. Follow (6) Severe sepsis: Code(s): A41.9 - Sepsis, unspecified organism; R65.20 - Severe sepsis without septic shock Status: Acute Assessment and Plan: Severe sepsis with shock. As above. (7) Paroxysmal atrial fibrillation: Code(s): I48.0 - Paroxysmal atrial fibrillation Status: Acute Assessment and Plan: Rate controlled. Anticoagulation on hold due to GI bleed. (8) NURY (acute kidney injury): Code(s): N17.9 - Acute kidney failure, unspecified Status: Acute Assessment and Plan: Resolved. 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 Off insulin gtt now. Continue Lantus. Add AccuCheks covering with sliding scale. Hypoglycemia protocol available as needed. Continue current medications. (11) DVT prophylaxis: Code(s): Z29.9 - Encounter for prophylactic measures, unspecified Status: Acute Assessment and Plan: Lovenox Subjective Date/time seen: 04/10/20 21:16 Interval history: Date of service 04/10 69yo male with pAFib on Xarelto, DM and HTN here for rectal bleeding and syncope. He was diagnosed with COVID on 03/18 and completed 5 days of Decadron and Azithromycin. Patient developed shock and respiratory failure. Patient off sedation past few days and now following commands. Developed fevers today. Propofol on standby. Lasix IV given x 1. Off insulin gtt. Review of Systems Review of Systems: ROS unobtainable: Yes unobtainable due to endotracheal tube Exam Narrative: Exam Narrative: Tm 100.3 98.0 104/57 76 19 94% MV, PEEP 5, 30% FiO2 Gen - intubated, more alert HEENT - ETT and OG secured Chest - CTA anteriorly CV - RRR S1/S2; Tele showing paced rhythm Abd - Soft, obese, NT - Boone secured draining clear yellow urine Ext - edematous UE and LE Neuro - opens eyes to voice, follows commands consistently. Skin - warm and dry
[2020-04-10] MEDS: PROPOFOL IV EMULSION 100 ML 6.39 MG IV CONT (22:35)
[2020-04-11] VITALS (27 sets, daily range): BP systolic 74–139; BP diastolic 40–74; PULSE 75–83; RESP 14–31; TEMP 36.6–37.3; O2SAT 92–100
[2020-04-11 00:24] LABS: Glucose Point of Care 222 (65-105)
[2020-04-11] MEDS: INSULIN ASPART (*BKC) 100 UNITS/ML SUB-Q ×4 (01:44→20:48)
[2020-04-11 01:49] LABS: Glucose Point of Care 257 (65-105)
[2020-04-11 04:18] LABS: Basophils Percent Auto 0.2 % (0.2-1.2); Eosinophils Absolute Auto 0.2 K/mm3 (0-0.3); Eosinophils Percent Auto 1.8 % (0-4.4); Hemoglobin 8.5 g/dL (14.0-18.0); Immature Granulocyte Absolute 0.47 K/mm3 (0.00-0.031); Immature Granulocyte Percent A 3.8 % (0-0.5); Lymphocytes Absolute Auto 1.05 K/mm3 (0.9-3.2); Lymphocytes Percent Auto 8.6 % (18.3-44.2); Mean Corpuscular HGB Conc 31.5 g/dl (32-36); Mean Corpuscular Volume 98.5 fl (80-100); Mean Platelet Volume 10.2 fl (7.4-10.4); Monocytes Absolute Auto 1.2 K/mm3 (0.1-0.6); Monocytes Percent Auto 9.9 % (2.6-8.5); Neutrophils Absolute Auto 9.2 K/mm3 (1.3-6.7); Neutrophils Percent Auto 75.7 % (45.5-73.1); Platelet Count Result 194 k/mm3 (150-375); Red Blood Count 2.74 M/mm3 (4.6-6.20); Red Cell Distribution Width 15.8 % (11.5-14.5); White Blood Count 12.2 K/mm3 (4.5-10.0)
[2020-04-11 05:02] LABS: Alveolar/Arterial O2 Gradient 103.1 mmHg; Base Excess ABG 8.3 mEq/l (+/-2.0); Carboxyhemoglobin 0.4 % THb (0-2.0); Fractional Inspired Oxygen 30 %; HCO3 ABG 31.2 mEq/l (22.0-26.0); Methemoglobin ABG 0.1 %THb (0-1.5); Oxygen Content ABG 15.5 %vol (16.0-22.0); Oxygen Saturation ABG 95.4 % (95.0-100.0); Oxyhemoglobin 93.3 % THb (90.0-100.0); PCO2 ABG 36.9 mmHg (35.0-45.0); PO2 ABG 67.4 mmHg (80.0-100.0); PO2 FiO2 Ratio Arterial Blood 2.25 %; Reduced Hemoglobin 6.2 %THb (0-5.0); Total Hemoglobin 11.8 g/dL (12.0-18.0)
[2020-04-11 05:04] LABS: Device VENTILATOR; Modified Allen's Test Unable to perform; Site Drawn RIGHT RADIAL; pH ABG 7.545 (7.350-7.450)
[2020-04-11 05:05] LABS: Arterial Blood Gas PEEP 5 cmH2O; Arterial Blood Gas Tidal Volume 500 ml; Arterial Blood Gas Vent Mode CMV; Arterial Blood Gas Ventilator rate 18 /MIN
[2020-04-11 05:12] LABS: Albumin Level 2.4 g/dL (3.5-5.1); Blood Urea Nitrogen 41 mg/dL (9-20); CRP 6.8 mg/dL (<1.0); Calcium 9.1 mg/dL (8.4-10.2); Carbon Dioxide > 40 mmol/L (22-30); Chloride 99 mmol/L (98-107); Estimated CRCL calculation 112 ml/min; Estimated Glomerular Filt Rate > 60; Glucose 274 mg/dL (75-110); Magnesium 2.3 mg/dL (1.6-2.3); Phosphorus 2.8 mg/dL (2.5-4.5); Potassium 3.9 mmol/L (3.4-5.0); Sodium 139 mmol/L (137-145)
[2020-04-11] MEDS: CENTRAL LINE FLUSH 10 ML IV PUSH ×4 (07:10→22:42)
[2020-04-11 07:29] LABS: Glucose Point of Care 268 (65-105)
[2020-04-11] MEDS: PANTOPRAZOLE SODIUM IV 40 MG VIAL 80 MG IV PUSH ×2 (09:11→20:49)
[2020-04-11] MEDS: ENOXAPARIN 40 MG/0.4 ML SYRINGE SUB-Q (09:12)
[2020-04-11] MEDS: SILVERGEL (ELTA) 45 ML 1 APPLIC TOPICAL (09:13)
[2020-04-11] MEDS: TOLNAFTATE 1% POWDER 45 GM BTL 1 APPLIC TOPICAL ×2 (09:13→20:49)
[2020-04-11] MEDS: INSULIN GLARGINE (*BKC) 100 UNITS/ML 60 UNITS SUB-Q (09:14)
--- NOTE | 2020-04-11 09:23 | WPDINTPN ---
Progress Note: A&P Assessment and Plan (1) Respiratory failure: Qualifiers: Chronicity: acute Respiratory failure complication: unspecified whether with hypoxia or hypercapnia Qualified Code(s): J96.00 - Acute respiratory failure, unspecified whether with hypoxia or hypercapnia Code(s): J96.90 - Respiratory failure, unspecified, unspecified whether with hypoxia or hypercapnia Status: Acute Assessment and Plan: Chest x-ray, vent settings and ABG reviewed Patient's all sedation was discontinued 2 days ago and he was placed on pressure support weaning trial for last 2 days. Did well from ventilation standpoint with adequate ABG but he was not awake enough to be extubated. 04/10 he did weaning trial but failed due to high RSBI Will try again today Lasix discontinued and Diamox ordered due to metabolic alkalosis He still is fairly volume positive. I will add albumin to try to decrease third-spacing and then re-attempt diuresis (2) Shock: Code(s): R57.9 - Shock, unspecified Status: Acute Assessment and Plan: Improving. Patient received IV fluids and multiple blood products despite which he remains on epinephrine, Levophed, vasopressin, phenylephrine, dopamine -lactic acid now normalized -Levophed weaned off now -off IV fluids now -wound culture 04/03 growing Pseudomonas -blood cultures X2 -continue imipenem. Off vancomycin -off of stress dose steroids now - 04/09 patient's central venous catheter was re-sutured (3) GI bleed: Qualifiers: GI bleed type/associated pathology: unspecified gastrointestinal hemorrhage type Qualified Code(s): K92.2 - Gastrointestinal hemorrhage, unspecified Code(s): K92.2 - Gastrointestinal hemorrhage, unspecified Status: Acute Assessment and Plan: Patient with GI bleed, status post EGD 04/04, mild duodenitis, Dieulafoy's lesion, clipping x1 to control hemorrhage -continue Protonix 80 mg IV q.12 hours -GI following closely No evidence of bleeding at this time (4) Insulin dependent type 2 diabetes mellitus: Code(s): E11.9 - Type 2 diabetes mellitus without complications; Z79.4 - [facility] (current) use of insulin Status: Acute Assessment and Plan: Uncontrolled. He was on insulin infusion which was held once tube feeds was stopped for potential extubation On Lantus to 60 units subcu q.day Sliding scale insulin change to q.4 hours August need to go back on insulin infusion (5) Paroxysmal atrial fibrillation: Code(s): I48.0 - Paroxysmal atrial fibrillation Status: Acute Assessment and Plan: Proximal AFib currently paced rhythm rate controlled, continue to monitor -patient was on Eliquis at home which is currently on hold due to GI bleed (6) Anemia: Code(s): D64.9 - Anemia, unspecified Status: Acute Assessment and Plan: Anemia secondary to GI blood loss -hemoglobin remains stable -continue to monitor -transfuse for less than 7 (7) NURY (acute kidney injury): Code(s): N17.9 - Acute kidney failure, unspecified Status: Acute Assessment and Plan: Acute kidney injury will likely related to shock, hypovolemia, ATN infection -adequately fluid-resuscitated, also received blood products -improved -continue monitor urine output, renal function electrolytes -Diamox ordered for alkalosis. IV Diamox is not available hence p.o. ordered (8) Hyponatremia: Code(s): E87.1 - Hypo-osmolality and hyponatremia Status: Acute Assessment and Plan: Improved. Continue to monitor (9) Electrolyte abnormality: Code(s): E87.8 - Other disorders of electrolyte and fluid balance, not elsewhere classified Status: Acute Assessment and Plan: Phosphate now normal after replacement yesterday Additional Plan DVT prophylaxis -SCDs, Lovenox started 04/09 after discussing with GI Stress ulcer prophylaxis -PPI Code Status - Full Code Critical care time
--- NOTE | 2020-04-11 11:17 | PCDIET ---
ICU Rounding Note: Tube feedings were held this morning for possible extubation. MD ordered to restart tube feedings, as patient not ready for extubation at this time. Previously tolerating Glucerna 1.2 at 80mL/hr goal rate. Last recorded weight is 204.4kg which is increased from last review. Bowel Motility: BM x 1 today. Dark/tarry, per RN. Labs Reviewed: Hgb (8.5), Hct (27.0), Glu (274), BUN (41), Alb (2.4) Meds Noted: Albumin, Precedex, Fentanyl, Imipenem, Novolog, Lantus, Levophed, Protonix Additional Notes: Diabetic ulcers to feet; deep tissue injury to buttocks Following daily in ICU rounds. Assessing/reassessing every Wednesday/Wednesday.
[2020-04-11] MEDS: acetaZOLAMIDE TAB 250 MG TABLET PO (11:57)
[2020-04-11] MEDS: ALBUMIN HUMAN 25% 25 GM/100 ML 100 ML IVPB ×3 (11:58→23:34)
[2020-04-11] MEDS: dexmedeTOMIDine 400 MCG/100 ML 400 MCG/100 ML BAG 10.22 MCG IV CONT (12:23)
[2020-04-11 12:47] LABS: Glucose Point of Care 220 (65-105)
--- NOTE | 2020-04-11 13:16 | WPDINFPN2 ---
Progress Note: A&P Assessment and Plan (1) Shock: Code(s): R57.9 - Shock, unspecified Status: Acute Assessment and Plan: 1. Shock, resolved 2. Severe hyponatremia, resolved 3. R foot wound, exam stable. WBC improving steadily. REC Imipenem #9, continue, stop once WBC normal or nearly so. Off Vanc. Further imaging once he can provide history, after extubation. BCs ng final. Subjective Date/time seen: 04/11/20 13:16 Interval history: eyes open, on vent Exam Narrative: Exam Narrative: t max 37.7 Const: General: no acute distress Neck: Neck: supple and no JVD Resp: Effort & Inspection: normal respiratory effort Auscultation: clear to auscultation bilaterally and diminished lung sounds Cardio: Rate: regular rate Rhythm: regular rhythm Heart sounds: no murmurs GI: Inspection: non-distended GI Palp: Yes Soft to palpation Extrem: Other: r 5th MT plantar ulcer same, no surrounding cellulitis Objective Data Vital Signs Vital Signs: Vital Signs - 24 hr 04/10/20 13:44 04/10/20 14:00 04/10/20 15:15 Temperature 37.5 C 37.5 C Pulse Rate 82 77 Respiratory Rate 15 Blood Pressure 88/62 L Pulse Oximetry 99 96 04/10/20 16:00 04/10/20 18:00 04/10/20 18:04 Temperature 37.3 C Pulse Rate 78 75 75 Respiratory Rate 18 21 H Blood Pressure 100/55 L 93/66 L Pulse Oximetry 95 95 94 04/10/20 20:00 04/10/20 21:48 04/10/20 22:00 Temperature 36.6 C Pulse Rate 78 78 76 Respiratory Rate 19 18 Blood Pressure 104/57 L 95/53 L Pulse Oximetry 94 93 96 04/10/20 23:35 04/11/20 00:00 04/11/20 00:16 Temperature 37.3 C Pulse Rate 78 78 75 Respiratory Rate 18 18 Blood Pressure 82/58 L Pulse Oximetry 95 97 04/11/20 02:00 04/11/20 03:21 04/11/20 04:00 Temperature 36.6 C Pulse Rate 79 76 82 Respiratory Rate 25 H 25 H Blood Pressure 94/58 L 102/60 Pulse Oximetry 92 95 98 04/11/20 04:42 04/11/20 06:00 04/11/20 08:00 Temperature 37.1 C Pulse Rate 75 81 75 Respiratory Rate 28 H 18 Blood Pressure 107/65 106/62 Pulse Oximetry 97 97 95 04/11/20 08:37 04/11/20 08:47 04/11/20 10:00 Temperature Pulse Rate 80 80 78 Respiratory Rate 31 H Blood Pressure 136/71 Pulse Oximetry 94 95 96 04/11/20 10:57 04/11/20 12:00 04/11/20 12:23 Temperature 37.1 C Pulse Rate 80 80 75 Respiratory Rate 27 H 26 H Blood Pressure 139/74 Pulse Oximetry 97 97 Intake/Output Intake/Output: Intake & Output 04/08/20 04/09/20 04/10/20 04/11/20 23:59 23:59 23:59 23:59 Intake Total 3125.667 2108 2326 1013 Output Total 4125 2450 2600 1300 Balance -999.333 -342 -274 -287 Meds/Results Medications: Active Medications Generic Name Dose Route Start Last Admin Trade Name Freq PRN Reason Stop Dose Admin Acetazolamide 250 mg 04/11/20 09:19 04/11/20 11:57 Acetazolamide Tab 250 Mg Tablet PO 04/13/20 09:01 250 mg QAM BRENT Administration Dextrose 12.5 gm 04/06/20 10:42 Dextrose 50% 25 Gm/50 Ml Syringe IV PUSH PRN PRN Hypoglycemia Protocol Enoxaparin Sodium 40 mg 04/09/20 15:00 04/11/20 09:12 Enoxaparin 40 Mg/0.4 Ml Syringe SUB-Q 40 mg DAILY BRENT Administration Glucagon 1 mg 04/06/20 10:42 Glucagon For Inj 1 Mg Vial IM PRN PRN Hypoglycemia Protocol Glucose 15 gm 04/06/20 10:42 Glucose Oral Gel 15 Gm Of Glucse In 37.5 Gm Tube PO PRN PRN Hypoglycemia Protocol Imipenem/Cilastatin Sodium 500 500 mg in 100 mls @ 300 mls/hr 04/04/20 08:00 04/11/20 09:40 mg/ Sodium Chloride IVPB Infused Q6H BRENT Infusion Dextrose 1,000 mls @ 100 mls/hr 04/06/20 10:42 Dextrose 5% 1,000 Ml IVPB PRN PRN Hypoglycemia Protocol Norepinephrine Bitartrate 16 250 mls @ 0 mls/hr 04/08/20 13:15 04/08/20 20:18 mg/ Dextrose IV CONT 0 mcg/min .Q0M BRENT 0 mls/hr Titration Protocol 0 MCG/MIN Albumin Human 100 mls @ 60 mls/hr 04/11/20 12:00 04/11/20 11:58
[2020-04-11 17:14] LABS: Glucose Point of Care 196 (65-105)
[2020-04-11 21:14] LABS: Glucose Point of Care 223 (65-105)
[2020-04-11] MEDS: NOREPINEPHRINE 8 MG/D5W 250 ML 8 MG/250 ML BAG 9.38 MG IV CONT (23:42)
[2020-04-12] VITALS (22 sets, daily range): BP systolic 93–119; BP diastolic 51–69; PULSE 73–86; RESP 13–23; TEMP 35.9–36.6; O2SAT 96–100
[2020-04-12] MEDS: dexmedeTOMIDine 400 MCG/100 ML 400 MCG/100 ML BAG 10.22 MCG IV CONT ×2 (01:00→09:37)
[2020-04-12] MEDS: INSULIN ASPART (*BKC) 100 UNITS/ML SUB-Q ×4 (01:33→12:21)
[2020-04-12 01:52] LABS: Glucose Point of Care 220 (65-105)
[2020-04-12 01:52] LABS: Glucose Point of Care 209 (65-105)
[2020-04-12 04:14] LABS: Alveolar/Arterial O2 Gradient 62.4 mmHg; Base Excess ABG 5.4 mEq/l (+/-2.0); Fractional Inspired Oxygen 30 %; HCO3 ABG 29.7 mEq/l (22.0-26.0); Methemoglobin ABG 0.2 %THb (0-1.5); Oxygen Content ABG 12.4 %vol (16.0-22.0); Oxygen Saturation ABG 97.9 % (95.0-100.0); Oxyhemoglobin 96.7 % THb (90.0-100.0); PCO2 ABG 42.3 mmHg (35.0-45.0); PO2 ABG 101.8 mmHg (80.0-100.0); PO2 FiO2 Ratio Arterial Blood 3.39 %; Reduced Hemoglobin 3.1 %THb (0-5.0); pH ABG 7.464 (7.350-7.450)
[2020-04-12 04:15] LABS: Arterial Blood Gas Minute Volume 6 LPM; Arterial Blood Gas PEEP 5 cmH2O; Arterial Blood Gas Vent Mode ASV; Device VENTILATOR; Modified Allen's Test Pass; Site Drawn RIGHT RADIAL
[2020-04-12 05:33] LABS: Hematocrit 26.6 % (42.0-52.0); Hemoglobin 8.2 g/dL (14.0-18.0); Mean Corpuscular HGB Conc 30.8 g/dl (32-36); Mean Corpuscular Hemoglobin 30.4 pg (26-34); Mean Corpuscular Volume 98.5 fl (80-100); Mean Platelet Volume 10.2 fl (7.4-10.4); Platelet Count Result 199 k/mm3 (150-375); Red Cell Distribution Width 15.4 % (11.5-14.5); White Blood Count 7.9 K/mm3 (4.5-10.0)
[2020-04-12 05:54] LABS: Anion Gap 2 mmol/L (8-16); Blood Urea Nitrogen 36 mg/dL (9-20); Calcium 9.4 mg/dL (8.4-10.2); Carbon Dioxide 37 mmol/L (22-30); Chloride 102 mmol/L (98-107); Estimated CRCL calculation 103 ml/min; Estimated Glomerular Filt Rate > 60; Glucose 232 mg/dL (75-110); Magnesium 2.2 mg/dL (1.6-2.3); Phosphorus 3.6 mg/dL (2.5-4.5); Potassium 3.5 mmol/L (3.4-5.0); Sodium 141 mmol/L (137-145)
[2020-04-12 06:29] LABS: Glucose Point of Care 229 (65-105)
[2020-04-12] MEDS: ALBUMIN HUMAN 25% 25 GM/100 ML 100 ML IVPB (06:38)
[2020-04-12] MEDS: CENTRAL LINE FLUSH 10 ML IV PUSH ×4 (06:38→20:10)
[2020-04-12] MEDS: ENOXAPARIN 40 MG/0.4 ML SYRINGE SUB-Q (09:39)
[2020-04-12] MEDS: acetaZOLAMIDE TAB 250 MG TABLET PO (09:39)
[2020-04-12] MEDS: INSULIN GLARGINE (*BKC) 100 UNITS/ML 60 UNITS SUB-Q (09:40)
[2020-04-12] MEDS: SILVERGEL (ELTA) 45 ML 1 APPLIC TOPICAL (09:41)
[2020-04-12] MEDS: TOLNAFTATE 1% POWDER 45 GM BTL 1 APPLIC TOPICAL ×2 (09:41→20:10)
[2020-04-12] MEDS: PANTOPRAZOLE SODIUM IV 40 MG VIAL 80 MG IV PUSH ×2 (09:41→20:10)
[2020-04-12 09:52] LABS: Alveolar/Arterial O2 Gradient 79.9 mmHg; Fractional Inspired Oxygen 30 %; HCO3 ABG 28.8 mEq/l (22.0-26.0); Oxygen Content ABG 16.7 %vol (16.0-22.0); Oxygen Saturation ABG 96.4 % (95.0-100.0); Oxyhemoglobin 94.6 % THb (90.0-100.0); PO2 ABG 82.3 mmHg (80.0-100.0); PO2 FiO2 Ratio Arterial Blood 2.74 %; Total Hemoglobin 12.5 g/dL (12.0-18.0); pH ABG 7.434 (7.350-7.450)
[2020-04-12 09:53] LABS: Modified Allen's Test Pass; Site Drawn LEFT RADIAL
[2020-04-12 09:54] LABS: Device VENTILATOR
[2020-04-12 09:55] LABS: Arterial Blood Gas PEEP 5 cmH2O; Arterial Blood Gas Pressure Support 5 cmH2O; Arterial Blood Gas Vent Mode SPONTANEOUS
[2020-04-12 09:57] LABS: Glucose Point of Care 212 (65-105)
--- NOTE | 2020-04-12 11:01 | PCDIET ---
Nutrition Follow-Up Complete: Nutrition Diagnosis: Inadequate oral intake related to GI bleeding as evidenced by NPO status. Nutrition Goal: Patient to meet estimated nutritional needs. Goal met; however, tube feedings now on hold for planned extubation. Recommend [employer] evaluation once appropriate after extubation. Last recorded weight is 202.1 kg which is decreased from last review. -I/O. Bowel Motility: +BM on 04/11/20. Labs Reviewed: Hgb (8.2), Hct (26.6), Glu (232), BUN (36) Meds Noted: Precedex, Imipenem, Novolog, Lantus, Protonix Additional Notes: Arms edematous and weeping, per RN. Also with macerated buttocks and bilateral foot wounds. Will continue to follow closely with same goal. Nutrition Monitoring and Evaluation: Follow up every 3 days.
--- NOTE | 2020-04-12 11:44 | WPDINTPN ---
Progress Note: A&P Assessment and Plan (1) Respiratory failure: Qualifiers: Chronicity: acute Respiratory failure complication: unspecified whether with hypoxia or hypercapnia Qualified Code(s): J96.00 - Acute respiratory failure, unspecified whether with hypoxia or hypercapnia Code(s): J96.90 - Respiratory failure, unspecified, unspecified whether with hypoxia or hypercapnia Status: Acute Assessment and Plan: Chest x-ray, vent settings and ABG reviewed 04/10 he did weaning trial but failed due to high RSBI 5/5 PSV SBT done for more than 1 hour. RSBI, ABGI and Vitals acceptable. Pt awake and following commands. Will extubate and monitor. NPO for now. May need Bipap PRN Continue Diamox ordered due to metabolic alkalosis Will give again Lasix today He did receive albumin over last 24 hours (2) Shock: Code(s): R57.9 - Shock, unspecified Status: Acute Assessment and Plan: Improving. Patient received IV fluids and multiple blood products despite which he remains on epinephrine, Levophed, vasopressin, phenylephrine, dopamine -lactic acid now normalized -Levophed weaned off now -off IV fluids now -wound culture 04/03 growing Pseudomonas -blood cultures X2 -continue imipenem. Off vancomycin -off of stress dose steroids now - 04/09 patient's central venous catheter was re-sutured (3) GI bleed: Qualifiers: GI bleed type/associated pathology: unspecified gastrointestinal hemorrhage type Qualified Code(s): K92.2 - Gastrointestinal hemorrhage, unspecified Code(s): K92.2 - Gastrointestinal hemorrhage, unspecified Status: Acute Assessment and Plan: Patient with GI bleed, status post EGD 04/04, mild duodenitis, Dieulafoy's lesion, clipping x1 to control hemorrhage -continue Protonix 80 mg IV q.12 hours -GI following closely No evidence of bleeding at this time (4) Insulin dependent type 2 diabetes mellitus: Code(s): E11.9 - Type 2 diabetes mellitus without complications; Z79.4 - senior living (current) use of insulin Status: Acute Assessment and Plan: Uncontrolled. He was on insulin infusion which was held once tube feeds was stopped for potential extubation On Lantus to 60 units subcu q.day Sliding scale insulin change to q.4 hours May need to go back on insulin infusion (5) Paroxysmal atrial fibrillation: Code(s): I48.0 - Paroxysmal atrial fibrillation Status: Acute Assessment and Plan: Proximal AFib currently paced rhythm rate controlled, continue to monitor -patient was on Eliquis at home which is currently on hold due to GI bleed (6) Anemia: Code(s): D64.9 - Anemia, unspecified Status: Acute Assessment and Plan: Anemia secondary to GI blood loss -hemoglobin remains stable -continue to monitor -transfuse for less than 7 (7) NURY (acute kidney injury): Code(s): N17.9 - Acute kidney failure, unspecified Status: Acute Assessment and Plan: Acute kidney injury will likely related to shock, hypovolemia, ATN infection -adequately fluid-resuscitated, also received blood products -improved -continue monitor urine output, renal function electrolytes -Diamox ordered for alkalosis. IV Diamox is not available hence p.o. ordered (8) Hyponatremia: Code(s): E87.1 - Hypo-osmolality and hyponatremia Status: Acute Assessment and Plan: Resolved Continue to monitor (9) Electrolyte abnormality: Code(s): E87.8 - Other disorders of electrolyte and fluid balance, not elsewhere classified Status: Acute Assessment and Plan: Replace low potassium Additional Plan DVT prophylaxis -SCDs, Lovenox started 04/09 after discussing with GI Stress ulcer prophylaxis -PPI Code Status - Full Code Critical care time spent: 30 minutes Due to a high probability of clinically significant, life threatening deterioration, the patient required my highest level of preparedness to inte
[2020-04-12] MEDS: FUROSEMIDE INJ 40 MG/4 ML VIAL IV PUSH (12:14)
[2020-04-12] MEDS: POTASSIUM CHLORIDE 20 MEQ TABLET 40 MEQ PO (12:15)
[2020-04-12 13:05] LABS: Glucose Point of Care 206 (65-105)
--- NOTE | 2020-04-12 16:20 | WPDINFPN2 ---
Progress Note: A&P Assessment and Plan (1) Shock: Code(s): R57.9 - Shock, unspecified Status: Acute Assessment and Plan: 1. Shock, resolved 2. Severe hyponatremia, resolved 3. R foot wound, exam stable. WBC back to normal. History as above, doubt deep space infection REC Imipenem #10 stop. Routine foot Xrays. If no abnormal findings on plain films, then can be discharged with ulcer care, and primary care and/or podiatry followup. 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 in [facility], some 3 years ago, waxing and waning ulcer ever since, some type of surgery was done at the time. On left, her reports 6 months of non healing ulcer, treated at home with dressings, and by his primary MD with systemic oral antibiotics of unknown nature. Not on IV in past. No recent symptomatic change in appearance of right foot. No past Xrays nor scans. Exam Narrative: Exam Narrative: afebrile, extubated, looks good Const: General: no acute distress Resp: Effort & Inspection: normal respiratory effort Auscultation: clear to auscultation bilaterally Cardio: Rate: regular rate Rhythm: regular rhythm Heart sounds: no murmurs GI: Inspection: non-distended GI Palp: Yes Soft to palpation and No Tenderness to palpation present (GI) Skin: General skin exam: normal color and no rashes or lesions noted Extrem: Other: r foot 1/2 cm clean ulcer, plantar. L lateral foot ulcer with some dried blood/exudate, no erythema no tenderness Objective Data Vital Signs Vital Signs: Vital Signs - 24 hr 04/11/20 16:56 04/11/20 18:00 04/11/20 18:17 Temperature Pulse Rate 76 75 77 Respiratory Rate 22 H 14 21 H Blood Pressure 95/63 L Pulse Oximetry 96 04/11/20 20:00 04/11/20 20:20 04/11/20 21:00 Temperature 37.0 C Pulse Rate 75 78 80 Respiratory Rate 19 30 H Blood Pressure 89/54 L Pulse Oximetry 95 97 04/11/20 22:00 04/11/20 22:30 04/11/20 23:41 Temperature Pulse Rate 75 76 Respiratory Rate 16 Blood Pressure 76/40 L 88/52 L Pulse Oximetry 96 96 04/11/20 23:42 04/12/20 00:00 04/12/20 02:00 Temperature 36.4 C Pulse Rate 75 79 Respiratory Rate 17 19 Blood Pressure 74/50 L 117/64 99/51 L Pulse Oximetry 98 96 04/12/20 02:05 04/12/20 04:00 04/12/20 04:53 Temperature 36.6 C Pulse Rate 73 75 75 Respiratory Rate 17 13 Blood Pressure 112/61 115/63 Pulse Oximetry 99 97 04/12/20 05:15 04/12/20 06:00 04/12/20 06:49 Temperature Pulse Rate 77 75 Respiratory Rate 16 Blood Pressure 98/64 L 103/67 Pulse Oximetry 97 96 04/12/20 08:00 04/12/20 08:09 04/12/20 09:37 Temperature 35.9 C L Pulse Rate 75 75 81 Respiratory Rate 21 H 19 Blood Pressure 93/60 L Pulse Oximetry 98 99 04/12/20 10:40 04/12/20 10:42 04/12/20 12:00 Temperature 36.6 C Pulse Rate 82 74 Respiratory Rate 18 22 H Blood Pressure 101/55 L Pulse Oximetry 100 100 Intake/Output Intake/Output: Intake & Output 04/09/20 04/10/20 04/11/20 04/12/20 23:59 23:59 23:59 23:59 Intake Total 2108 2326 2073 1459 Output Total 2450 2600 2075 3175 Balance -342 -274 -2 -1716 Meds/Results Medications: Active Medications Generic Name Dose Route Start Last Admin Trade Name Freq PRN Reason Stop Dose Admin Acetazolamide 250 mg 04/11/20 09:19 04/12/20 09:39 Acetazolamide Tab 250 Mg Tablet PO 04/13/20 09:01 250 mg QAM BRENT Administration Dextrose 12.5 gm 04/06/20 10:42 Dextrose 50% 25 Gm/50 Ml Syringe IV PUSH PRN PRN Hypoglycemia Protocol Enoxaparin Sodium 40 mg 04/09/20 15:00 04/12/20 09:39 Enoxaparin 40 Mg/0.4 Ml Syringe SUB-Q 40 mg DAILY BRENT Administration Glucagon 1 mg 04/06/20 10:42 Glucagon For Inj 1 Mg Vial IM PRN PRN Hypoglycemia Protocol Glucose 15 gm 04/06/20 10:42 Glucose Oral Gel 15 Gm Of Glucse In 37.5 Gm Tube PO PRN PRN
[2020-04-12 17:47] LABS: Glucose Point of Care 132 (65-105)
[2020-04-12 20:39] LABS: Glucose Point of Care 166 (65-105)
--- NOTE | 2020-04-12 20:43 | PM.IMPN ---
Progress Note: A&P Assessment and Plan (1) Shock: Code(s): R57.9 - Shock, unspecified Status: Acute Assessment and Plan: Possible sepsis due to wound infection (pseudomonas). Completed a course of imipenem today. Possibly due to GI blood loss as well. Weaned off pressors and BP remianing stable. (2) GI bleed: Qualifiers: GI bleed type/associated pathology: unspecified gastrointestinal hemorrhage type Qualified Code(s): K92.2 - Gastrointestinal hemorrhage, unspecified Code(s): K92.2 - Gastrointestinal hemorrhage, unspecified Status: Acute Assessment and Plan: Hgb 8.8 on admission. He recieved a total of 8U PRBC, 1 FFP and 1 Cryo. Last transfusion was 04/07. EGD 04/04 showing duodenitis with Dieulafoy's. Continue BID protonix. (3) Cellulitis of foot, right: Code(s): L03.115 - Cellulitis of right lower limb Status: Acute Assessment and Plan: Right foot wound cellulitis. Also with left wound as well. Cx growing pseudomonas. Treated with Primaxin since 04/04 and now stopped today. Xray showing mild osteopenia at the base of the right fifth metatarsal which could reflect osteomyelitis. Continue dressing changes. No MRI due to patient with PM. Will discuss with radiology about other imaging. May need to wait for bone scan next week. (4) Acute blood loss anemia: Code(s): D62 - Acute posthemorrhagic anemia Status: Acute Assessment and Plan: As above. Hgb stable since EGD 04/04 and clipping of possible Dieulafoy's vascular anomaly. Hgb 8.2 today (5) Acute hyponatremia: Code(s): E87.1 - Hypo-osmolality and hyponatremia Status: Acute Assessment and Plan: Na 123 on admission. 04/05 received 3% saline. Na normal now. Follow. (6) Severe sepsis: Code(s): A41.9 - Sepsis, unspecified organism; R65.20 - Severe sepsis without septic shock Status: Acute Assessment and Plan: Severe sepsis with shock. As above. (7) Paroxysmal atrial fibrillation: Code(s): I48.0 - Paroxysmal atrial fibrillation Status: Acute Assessment and Plan: Paced. Anticoagulation on hold due to GI bleed. (8) NURY (acute kidney injury): Code(s): N17.9 - Acute kidney failure, unspecified Status: Acute Assessment and Plan: Cr to 2.1. Cr has improved and normal now. Follow (9) Hypertension: Qualifiers: Hypertension type: unspecified Qualified Code(s): I10 - Essential (primary) hypertension Code(s): I10 - Essential (primary) hypertension Status: Acute Assessment and Plan: BP remaining well controlled. Holding meds due to recent shock. Continue to monitor. (10) Insulin dependent type 2 diabetes mellitus: Code(s): E11.9 - Type 2 diabetes mellitus without complications; Z79.4 - custodial (current) use of insulin Status: Acute Assessment and Plan: The patient's blood glucose was reviewed on 04/12 Glucose better controlled tonight. Off insulin gtt. Continue Lantus. Monitor with AccuCheks covering with sliding scale. Hypoglycemia protocol available as needed. Continue current medications. (11) DVT prophylaxis: Code(s): Z29.9 - Encounter for prophylactic measures, unspecified Status: Acute Assessment and Plan: Lovenox Subjective Date/time seen: 04/12/20 20:43 Interval history: Date of service 04/12 69yo male with pAFib on Xarelto, DM and HTN admitted on 04/03 for rectal bleeding and syncope. He was diagnosed with COVID on 03/18 and completed 5 days of Decadron and Azithromycin. Patient developed shock and respiratory failure requiring intubation on 04/04/20. He was able to be extubated on 04/12. Patient extubated today. He feels well. Only on 2L currently. Denies feeling SOB or cough. No CP. Able to eat and denies any dysphagia symptoms. Exam Narrative: Exam Na
[2020-04-12 23:38] LABS: Glucose Point of Care 104 (65-105)
[2020-04-13] VITALS (13 sets, daily range): BP systolic 107–134; BP diastolic 44–76; PULSE 75–94; RESP 15–25; TEMP 36.1–36.9; O2SAT 92–100
[2020-04-13] MEDS: CENTRAL LINE FLUSH 10 ML IV PUSH ×2 (03:33→20:40)
[2020-04-13 04:45] LABS: Alveolar/Arterial O2 Gradient 31.8 mmHg; Base Excess ABG 7.3 mEq/l (+/-2.0); Carboxyhemoglobin 0.2 % THb (0-2.0); Fractional Inspired Oxygen 28 %; HCO3 ABG 33.1 mEq/l (22.0-26.0); Methemoglobin ABG 0.3 %THb (0-1.5); Oxygen Content ABG 13.3 %vol (16.0-22.0); Oxygen Saturation ABG 97.7 % (95.0-100.0); Oxyhemoglobin 96.4 % THb (90.0-100.0); PCO2 ABG 54.2 mmHg (35.0-45.0); PO2 ABG 103.9 mmHg (80.0-100.0); PO2 FiO2 Ratio Arterial Blood 3.71 %; Reduced Hemoglobin 3.1 %THb (0-5.0); Total Hemoglobin 9.7 g/dL (12.0-18.0); pH ABG 7.404 (7.350-7.450)
[2020-04-13 04:48] LABS: Device NASAL CANNULA; Modified Allen's Test Pass; Site Drawn RIGHT RADIAL
[2020-04-13 05:45] LABS: Glucose Point of Care 86 (65-105)
[2020-04-13 05:53] LABS: Basophils Percent Auto 0.5 % (0.2-1.2); Eosinophils Absolute Auto 0.5 K/mm3 (0-0.3); Eosinophils Percent Auto 6.2 % (0-4.4); Hematocrit 27.4 % (42.0-52.0); Hemoglobin 8.4 g/dL (14.0-18.0); Immature Granulocyte Absolute 0.15 K/mm3 (0.00-0.031); Immature Granulocyte Percent A 1.9 % (0-0.5); Lymphocytes Absolute Auto 1.23 K/mm3 (0.9-3.2); Lymphocytes Percent Auto 15.6 % (18.3-44.2); Mean Corpuscular HGB Conc 30.7 g/dl (32-36); Mean Corpuscular Hemoglobin 30.5 pg (26-34); Mean Corpuscular Volume 99.6 fl (80-100); Mean Platelet Volume 9.8 fl (7.4-10.4); Monocytes Absolute Auto 0.8 K/mm3 (0.1-0.6); Monocytes Percent Auto 10.6 % (2.6-8.5); Neutrophils Absolute Auto 5.1 K/mm3 (1.3-6.7); Neutrophils Percent Auto 65.2 % (45.5-73.1); Platelet Count Result 220 k/mm3 (150-375); Red Blood Count 2.75 M/mm3 (4.6-6.20); White Blood Count 7.9 K/mm3 (4.5-10.0)
[2020-04-13 06:21] LABS: Anion Gap 2 mmol/L (8-16); Blood Urea Nitrogen 29 mg/dL (9-20); Calcium 9.2 mg/dL (8.4-10.2); Carbon Dioxide 35 mmol/L (22-30); Chloride 103 mmol/L (98-107); Estimated CRCL calculation 111 ml/min; Estimated Glomerular Filt Rate > 60; Glucose 97 mg/dL (75-110); Potassium 3.6 mmol/L (3.4-5.0); Sodium 140 mmol/L (137-145)
[2020-04-13] MEDS: PANTOPRAZOLE SODIUM IV 40 MG VIAL 80 MG IV PUSH ×2 (09:04→20:55)
[2020-04-13] MEDS: ENOXAPARIN 40 MG/0.4 ML SYRINGE SUB-Q (09:04)
[2020-04-13] MEDS: TOLNAFTATE 1% POWDER 45 GM BTL 1 APPLIC TOPICAL ×2 (09:05→20:40)
[2020-04-13] MEDS: SILVERGEL (ELTA) 45 ML 1 APPLIC TOPICAL (09:05)
--- NOTE | 2020-04-13 09:39 | WPDINTPN ---
Progress Note: A&P Assessment and Plan (1) Respiratory failure: Qualifiers: Chronicity: acute Respiratory failure complication: unspecified whether with hypoxia or hypercapnia Qualified Code(s): J96.00 - Acute respiratory failure, unspecified whether with hypoxia or hypercapnia Code(s): J96.90 - Respiratory failure, unspecified, unspecified whether with hypoxia or hypercapnia Status: Acute Assessment and Plan: Chest x-ray, vent settings and ABG reviewed 04/12 -he was successfully extubated after weaning trial. Maintaining adequate saturation nasal cannula he did weaning trial but failed due to high RSBI Incentive spirometry, Continue Diamox ordered due to metabolic alkalosis Will give again Lasix today He did receive albumin over last 24 hours (2) Shock: Code(s): R57.9 - Shock, unspecified Status: Acute Assessment and Plan: Improving. Patient received IV fluids and multiple blood products despite which he remains on epinephrine, Levophed, vasopressin, phenylephrine, dopamine -lactic acid now normalized -Levophed weaned off now -off IV fluids now -wound culture 04/03 growing Pseudomonas -blood cultures X2 -continue imipenem. Off vancomycin -off of stress dose steroids now - 04/09 patient's central venous catheter was re-sutured (3) GI bleed: Qualifiers: GI bleed type/associated pathology: unspecified gastrointestinal hemorrhage type Qualified Code(s): K92.2 - Gastrointestinal hemorrhage, unspecified Code(s): K92.2 - Gastrointestinal hemorrhage, unspecified Status: Acute Assessment and Plan: Patient with GI bleed, status post EGD 04/04, mild duodenitis, Dieulafoy's lesion, clipping x1 to control hemorrhage -continue Protonix 80 mg IV q.12 hours -GI following closely No evidence of bleeding at this time (4) Insulin dependent type 2 diabetes mellitus: Code(s): E11.9 - Type 2 diabetes mellitus without complications; Z79.4 - pharmacists (current) use of insulin Status: Acute Assessment and Plan: Uncontrolled. He was on insulin infusion which was held once tube feeds was stopped for potential extubation On Lantus but blood glucose is low this morning as he was on clear liquid diet. I will hold Lantus at this time and resume at lower dose once sugars are elevated Sliding scale insulin change q.a.c. and HS Advance diet today (5) Paroxysmal atrial fibrillation: Code(s): I48.0 - Paroxysmal atrial fibrillation Status: Acute Assessment and Plan: Proximal AFib currently paced rhythm rate controlled, continue to monitor -patient was on Eliquis at home which is currently on hold due to GI bleed (6) Anemia: Code(s): D64.9 - Anemia, unspecified Status: Acute Assessment and Plan: Anemia secondary to GI blood loss -hemoglobin remains stable -continue to monitor -transfuse for less than 7 (7) NURY (acute kidney injury): Code(s): N17.9 - Acute kidney failure, unspecified Status: Acute Assessment and Plan: Acute kidney injury will likely related to shock, hypovolemia, ATN infection -adequately fluid-resuscitated, also received blood products -improved -continue monitor urine output, renal function electrolytes -Diamox ordered for alkalosis. IV Diamox is not available hence p.o. ordered -replaced low potassium (8) Hyponatremia: Code(s): E87.1 - Hypo-osmolality and hyponatremia Status: Acute Assessment and Plan: Resolved Continue to monitor (9) Electrolyte abnormality: Code(s): E87.8 - Other disorders of electrolyte and fluid balance, not elsewhere classified Status: Acute Assessment and Plan: Replace low potassium Additional Plan DVT prophylaxis -SCDs, Lovenox started 04/09 after discussing with GI Stress ulcer prophylaxis -PPI Code Status - Full Code PT Fortunato ARELLANO Transfer out of ICU today Subjective Date/time seen: 04/13/20 0540 [place]
[2020-04-13 09:41] LABS: Glucose Point of Care 91 (65-105)
[2020-04-13] MEDS: POTASSIUM CHLORIDE 20 MEQ TABLET 40 MEQ PO (10:31)
[2020-04-13] MEDS: FUROSEMIDE INJ 40 MG/4 ML VIAL IV PUSH (10:31)
[2020-04-13] MEDS: acetaZOLAMIDE TAB 250 MG TABLET PO (10:31)
[2020-04-13 14:12] LABS: Glucose Point of Care 135 (65-105)
--- NOTE | 2020-04-13 17:22 | PM.IMPN ---
Progress Note: A&P Assessment and Plan (1) Respiratory failure: Qualifiers: Chronicity: acute Respiratory failure complication: unspecified whether with hypoxia or hypercapnia Qualified Code(s): J96.00 - Acute respiratory failure, unspecified whether with hypoxia or hypercapnia Code(s): J96.90 - Respiratory failure, unspecified, unspecified whether with hypoxia or hypercapnia Status: Acute Assessment and Plan: Patient developed acute respiratory hypercarbia and hypoxia requiring intubation and ventilation. Patient was able to be extubated on 04/12/2020. He has been weaned to room air. (2) Shock: Code(s): R57.9 - Shock, unspecified Status: Acute Assessment and Plan: Possible sepsis due to wound infection (pseudomonas). Completed a course of imipenem on 04/12. Possibly due to GI blood loss as well. Was on Levophed for a short period of time and able to be weaned off quickly. (3) GI bleed: Qualifiers: GI bleed type/associated pathology: unspecified gastrointestinal hemorrhage type Qualified Code(s): K92.2 - Gastrointestinal hemorrhage, unspecified Code(s): K92.2 - Gastrointestinal hemorrhage, unspecified Status: Acute Assessment and Plan: Hgb 8.8 on admission. He received a total of 8U PRBC, 1 FFP and 1 Cryo. Last transfusion was 04/07. EGD 04/04 showing duodenitis with Dieulafoy's. Continue Protonix BID. (4) Cellulitis of foot, right: Code(s): L03.115 - Cellulitis of right lower limb Status: Acute Assessment and Plan: Right foot wound cellulitis. Also with left wound as well. Cx growing pseudomonas. Treated with Primaxin since 04/04 and now stopped 04/12. Xray showing mild osteopenia at the base of the right fifth metatarsal which could reflect osteomyelitis. Continue dressing changes. No MRI due to patient with PM. Will discuss with radiology about other imaging. May need to wait for bone scan next week. (5) Acute blood loss anemia: Code(s): D62 - Acute posthemorrhagic anemia Status: Acute Assessment and Plan: As above. Hgb stable in the 8-9 range since EGD 04/04 and clipping of possible Dieulafoy's vascular anomaly. Hgb 8.4 today (6) Acute hyponatremia: Code(s): E87.1 - Hypo-osmolality and hyponatremia Status: Acute Assessment and Plan: Na 123 on admission. 04/05 received 3% saline. Na normal now. Follow. (7) Severe sepsis: Code(s): A41.9 - Sepsis, unspecified organism; R65.20 - Severe sepsis without septic shock Status: Acute Assessment and Plan: Severe sepsis with shock. As above. (8) Paroxysmal atrial fibrillation: Code(s): I48.0 - Paroxysmal atrial fibrillation Status: Acute Assessment and Plan: Paced. Anticoagulation on hold due to GI bleed. (9) NURY (acute kidney injury): Code(s): N17.9 - Acute kidney failure, unspecified Status: Acute Assessment and Plan: Cr to 2.1. Cr has improved and normal now. Follow (10) Hypertension: Qualifiers: Hypertension type: unspecified Qualified Code(s): I10 - Essential (primary) hypertension Code(s): I10 - Essential (primary) hypertension Status: Acute Assessment and Plan: BP remaining well controlled. Holding meds due to recent shock. Continue to monitor. Resume lisinopril when able. 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 Off insulin gtt. Takes Lantus at 25U QHS but on 20Units here. Continue Lantus at current dose. Monitor with AccuCheks covering with sliding scale. Hypoglycemia protocol available as needed. Continue current medications. (12) D
[2020-04-13 21:03] LABS: Glucose Point of Care 136 (65-105)
[2020-04-13 21:03] LABS: Glucose Point of Care 181 (65-105)
--- NOTE | 2020-04-13 22:09 | PC.NURSE ---
This patient, Kimani Leos, was transferred to [facility] on 04/13/20 at 2200. Personal belongings sent with patient. Report given to JULISSA Garvin. Appropriate documentation sent with patient.
[2020-04-14 04:00] VITALS: BP 126/61; PULSE 78; RESP 20; TEMP 36.9; O2SAT 94
[2020-04-14 06:35] LABS: Hematocrit 28.7 % (42.0-52.0); Hemoglobin 9.2 g/dL (14.0-18.0); Mean Corpuscular HGB Conc 32.1 g/dl (32-36); Mean Corpuscular Hemoglobin 32.1 pg (26-34); Platelet Count Result 237 k/mm3 (150-375); Red Blood Count 2.87 M/mm3 (4.6-6.20); Red Cell Distribution Width 14.7 % (11.5-14.5); White Blood Count 7.8 K/mm3 (4.5-10.0)
[2020-04-14 06:48] LABS: Phosphorus 3.3 mg/dL (2.5-4.5)
[2020-04-14 06:51] LABS: Alanine Aminotransferase 22 U/L (4-50); Albumin Level 2.8 g/dL (3.5-5.1); Alkaline Phosphatase 59 U/L (38-126); Anion Gap 2 mmol/L (8-16); Aspartate Amino Transferase 30 U/L (17-59); Bilirubin,Total 0.7 mg/dL (0.2-1.3); Blood Urea Nitrogen 23 mg/dL (9-20); Calcium 9.1 mg/dL (8.4-10.2); Carbon Dioxide 34 mmol/L (22-30); Chloride 102 mmol/L (98-107); Estimated CRCL calculation 111 ml/min; Estimated Glomerular Filt Rate > 60; Glucose 139 mg/dL (75-110); Magnesium 1.8 mg/dL (1.6-2.3); Potassium 3.5 mmol/L (3.4-5.0); Sodium 138 mmol/L (137-145)
[2020-04-14 08:00] VITALS: BP 127/63; PULSE 85; RESP 20; TEMP 36.4; O2SAT 100
[2020-04-14 09:37] LABS: Glucose Point of Care 144 (65-105)
[2020-04-14] MEDS: PANTOPRAZOLE SODIUM IV 40 MG VIAL 80 MG IV PUSH (09:46)
[2020-04-14] MEDS: CENTRAL LINE FLUSH 10 ML IV PUSH ×3 (09:46→20:04)
[2020-04-14] MEDS: SILVERGEL (ELTA) 45 ML 1 APPLIC TOPICAL (09:47)
[2020-04-14] MEDS: ENOXAPARIN 40 MG/0.4 ML SYRINGE SUB-Q (09:47)
[2020-04-14] MEDS: TOLNAFTATE 1% POWDER 45 GM BTL 1 APPLIC TOPICAL ×2 (09:47→20:03)
--- NOTE | 2020-04-14 11:07 | WPDINFPN2 ---
Progress Note: A&P Assessment and Plan (1) Shock: Code(s): R57.9 - Shock, unspecified Status: Acute Assessment and Plan: 1. Shock, resolved 2. Severe hyponatremia, resolved 3. R foot wound, exam stable. No deep space infection is present REC Off antibiotics and stable. Will sign off, thanks Subjective Date/time seen: 04/14/20 11:07 Interval history: no dyspnea Exam Narrative: Exam Narrative: afebrile Const: General: no acute distress Resp: Effort & Inspection: normal respiratory effort Auscultation: clear to auscultation bilaterally Extrem: Other: ulcer same with crust, no cellulitis Objective Data Vital Signs Vital Signs: Vital Signs - 24 hr 04/13/20 12:00 04/13/20 14:00 04/13/20 16:00 Temperature 36.3 C L 36.3 C L Pulse Rate 75 94 93 Respiratory Rate 25 H 21 H 21 H Blood Pressure 107/44 L Pulse Oximetry 96 92 94 04/13/20 20:00 04/13/20 20:41 04/13/20 22:00 Temperature 36.1 C L 36.9 C Pulse Rate 86 79 Respiratory Rate 22 H 20 Blood Pressure 128/59 L 134/63 Pulse Oximetry 97 94 100 04/14/20 04:00 04/14/20 08:00 Temperature 36.9 C 36.4 C Pulse Rate 78 85 Respiratory Rate 20 20 Blood Pressure 126/61 127/63 Pulse Oximetry 94 100 Intake/Output Intake/Output: Intake & Output 04/11/20 04/12/20 04/13/20 04/14/20 23:59 23:59 23:59 23:59 Intake Total 2072 2691 990 450 Output Total 2074 3550 3250 1150 Balance -2 -859 -2260 -700 Meds/Results Medications: Active Medications Generic Name Dose Route Start Last Admin Trade Name Freq PRN Reason Stop Dose Admin Dextrose 12.5 gm 04/06/20 10:42 Dextrose 50% 25 Gm/50 Ml Syringe IV PUSH PRN PRN Hypoglycemia Protocol Enoxaparin Sodium 40 mg 04/09/20 15:00 04/14/20 09:47 Enoxaparin 40 Mg/0.4 Ml Syringe SUB-Q 40 mg DAILY BRENT Administration Glucagon 1 mg 04/06/20 10:42 Glucagon For Inj 1 Mg Vial IM PRN PRN Hypoglycemia Protocol Glucose 15 gm 04/06/20 10:42 Glucose Oral Gel 15 Gm Of Glucse In 37.5 Gm Tube PO PRN PRN Hypoglycemia Protocol Dextrose 1,000 mls @ 100 mls/hr 04/06/20 10:42 Dextrose 5% 1,000 Ml IVPB PRN PRN Hypoglycemia Protocol Insulin Aspart 4 - 8 units 04/13/20 12:00 04/14/20 09:35 Insulin Aspart (*Bkc) 100 Units/Ml SUB-Q Not Given ACINSULIN BRENT Protocol Insulin Glargine 20 units 04/14/20 21:00 Insulin Glargine (*Bkc) 100 Units/Ml SUB-Q HS BRENT Miconazole Nitrate 1 applic 04/10/20 09:00 04/14/20 09:47 Miconazole 2% Antifungal Ointment 56 Gm TOPICAL 1 applic Q12HR BRENT Administration Pantoprazole Sodium 80 mg 04/03/20 23:00 04/14/20 09:46 Pantoprazole Sodium Iv 40 Mg Vial IV PUSH 80 mg Q12HR BRENT Administration Silver Nitrate 1 applic 04/04/20 09:00 04/14/20 09:47 Silvergel (Elta) 45 Ml TOPICAL 1 applic DAILY BRENT Administration Sodium Chloride 10 ml 04/03/20 22:00 04/14/20 09:46 Central Line Flush IV PUSH 10 ml Q8HR BRENT Administration Sodium Chloride 20 ml 04/03/20 14:47 Central Line Flush IV PUSH PRN PRN after blood draws Tolnaftate 1 applic 04/08/20 21:20 04/14/20 09:47 Tolnaftate 1% Powder 45 Gm Btl TOPICAL 1 applic Q12HR BRENT Administration Radiology Results: ITS Impressions Abdomen/Pelvis CT 04/03/20 12:22 IMPRESSION: 1. Cholelithiasis. No evidence of acute cholecystitis. Vascular Ultrasound 04/04/20 09:45 IMPRESSION: 1. Abnormal arteries not visible. Yesterday's CT demonstrates no significant stenosis of celiac axis, superior mesenteric artery, or inferior mesenteric artery. Abdomen X-Ray 04/11/20 19:25 IMPRESSION: 1. Enteric tube in the stomach. Chest X-Ray 04/12/20 07:20 IMPRESSION: 1. Unchanged opacity right lower lung zone along side the elevated right hemidiaphragm most likely atelectasis although differential includes pneumonia. 2. Small bilateral pleura
[2020-04-14 11:47] LABS: Glucose Point of Care 204 (65-105)
[2020-04-14 12:00] VITALS: BP 120/57; PULSE 81; RESP 20; TEMP 36.7; O2SAT 100
[2020-04-14] MEDS: INSULIN ASPART (*BKC) 100 UNITS/ML SUB-Q (13:46)
[2020-04-14 16:00] VITALS: BP 123/83; PULSE 76; RESP 20; TEMP 36.8; O2SAT 95
--- NOTE | 2020-04-14 16:30 | PM.IMPN ---
Progress Note: A&P Assessment and Plan (1) Respiratory failure: Qualifiers: Chronicity: acute Respiratory failure complication: unspecified whether with hypoxia or hypercapnia Qualified Code(s): J96.00 - Acute respiratory failure, unspecified whether with hypoxia or hypercapnia Code(s): J96.90 - Respiratory failure, unspecified, unspecified whether with hypoxia or hypercapnia Status: Acute Assessment and Plan: Patient developed acute respiratory hypercarbia and hypoxia requiring intubation and ventilation. Patient was able to be extubated on 04/12/2020. He has been weaned to room air. (2) Shock: Code(s): R57.9 - Shock, unspecified Status: Acute Assessment and Plan: Possible sepsis due to wound infection (pseudomonas). Completed a course of imipenem on 04/12. Possibly due to GI blood loss as well. Was on Levophed for a short period of time and able to be weaned off quickly. (3) GI bleed: Qualifiers: GI bleed type/associated pathology: unspecified gastrointestinal hemorrhage type Qualified Code(s): K92.2 - Gastrointestinal hemorrhage, unspecified Code(s): K92.2 - Gastrointestinal hemorrhage, unspecified Status: Acute Assessment and Plan: Hgb 8.8 on admission. He received a total of 8U PRBC, 1 FFP and 1 Cryo. Last transfusion was 04/07. EGD 04/04 showing duodenitis with Dieulafoy's that was clipped. Continue Protonix BID. Will to 40mg BID. (4) Cellulitis of foot, right: Code(s): L03.115 - Cellulitis of right lower limb Status: Acute Assessment and Plan: Right foot wound cellulitis. Also with left wound as well. Cx growing pseudomonas. Treated with Primaxin since 04/04 and now stopped 04/12. Xray showing mild osteopenia at the base of the right fifth metatarsal which could reflect osteomyelitis. Continue dressing changes. ID input noted and appreciated. Not felt he had osteomyelitis. Continue dressing changes. (5) Acute blood loss anemia: Code(s): D62 - Acute posthemorrhagic anemia Status: Acute Assessment and Plan: As above. Hgb stable in the 8-9 range since EGD 04/04 and clipping of possible Dieulafoy's vascular anomaly. Hgb 9.2 today (6) Acute hyponatremia: Code(s): E87.1 - Hypo-osmolality and hyponatremia Status: Acute Assessment and Plan: Na 123 on admission. Patient received 3% saline on 04/05/20. Na normal now. Follow. (7) Severe sepsis: Code(s): A41.9 - Sepsis, unspecified organism; R65.20 - Severe sepsis without septic shock Status: Acute Assessment and Plan: Severe sepsis with shock. As above. (8) Paroxysmal atrial fibrillation: Code(s): I48.0 - Paroxysmal atrial fibrillation Status: Acute Assessment and Plan: Paced. Anticoagulation on hold due to GI bleed. Resume when okay with GI. He is tolerating prophylactic Lovenox (9) NURY (acute kidney injury): Code(s): N17.9 - Acute kidney failure, unspecified Status: Acute Assessment and Plan: Cr to 2.1. Cr has improved and normal now. Follow (10) Hypertension: Qualifiers: Hypertension type: unspecified Qualified Code(s): I10 - Essential (primary) hypertension Code(s): I10 - Essential (primary) hypertension Status: Acute Assessment and Plan: BP remaining well controlled. Holding meds due to recent shock. Continue to monitor. Resume lisinopril tomorrow. 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 The patient's blood glucose was reviewed on 04/14 Glucose well controlled. Off insulin gtt. Takes Lantus at 25U QHS but on 20Units here. Continue Lantus at current dose and resume Janumet. Monitor with Perk
[2020-04-14 17:24] LABS: Glucose Point of Care 158 (65-105)
[2020-04-14 20:00] VITALS: BP 141/58; PULSE 85; RESP 18; TEMP 36.5; O2SAT 94
[2020-04-14] MEDS: PANTOPRAZOLE 40 MG TABLET PO (20:03)
[2020-04-14] MEDS: INSULIN GLARGINE (*BKC) 100 UNITS/ML 20 UNITS SUB-Q (20:03)
[2020-04-14 20:08] LABS: Glucose Point of Care 198 (65-105)
[2020-04-15] VITALS: BP 121/58; PULSE 82; RESP 18; TEMP 36.6; O2SAT 96
[2020-04-15 04:00] VITALS: BP 128/54; PULSE 82; RESP 16; TEMP 36.8; O2SAT 96
[2020-04-15 06:48] LABS: Anion Gap 3 mmol/L (8-16); Blood Urea Nitrogen 17 mg/dL (9-20); Calcium 8.8 mg/dL (8.4-10.2); Carbon Dioxide 33 mmol/L (22-30); Chloride 102 mmol/L (98-107); Estimated CRCL calculation 137 ml/min; Estimated Glomerular Filt Rate > 60; Glucose 160 mg/dL (75-110); Potassium 3.4 mmol/L (3.4-5.0); Sodium 138 mmol/L (137-145)
[2020-04-15 08:00] VITALS: BP 106/54; PULSE 77; RESP 20; TEMP 36.4; O2SAT 98
[2020-04-15 09:06] LABS: Glucose Point of Care 152 (65-105)
[2020-04-15] MEDS: ROSUVASTATIN 10 MG TABLET PO (10:25)
[2020-04-15] MEDS: metFORMIN HCL 500 MG TABLET 1000 MG PO (10:25)
[2020-04-15] MEDS: lisinopriL 10 MG TABLET PO (10:26)
[2020-04-15] MEDS: PANTOPRAZOLE 40 MG TABLET PO ×2 (10:26→21:50)
[2020-04-15] MEDS: SILVERGEL (ELTA) 45 ML 1 APPLIC TOPICAL (10:28)
[2020-04-15] MEDS: ENOXAPARIN 40 MG/0.4 ML SYRINGE SUB-Q (10:28)
[2020-04-15] MEDS: TOLNAFTATE 1% POWDER 45 GM BTL 1 APPLIC TOPICAL ×2 (10:29→21:50)
[2020-04-15] MEDS: POTASSIUM CHLORIDE 20 MEQ TABLET PO (10:46)
--- NOTE | 2020-04-15 11:25 | PCNFU ---
Nutrition Follow-Up Complete: Inadequate oral intake related to GI bleeding as evidenced by NPO status. Goal: Patient to meet estimated nutritional needs. Patient has met nutrition goal. No new goal. Pt current nutrition is DBCC. Last recorded weight is 201.8 kg up from 198.3 kg on admit. Bowel Motility:+BM 04/14 Labs Reviewed:Glu 160,Alb 2.8 Meds Noted:Lovenox,Lantus,Glucophage Additional Notes: Nutrition follow up. Spoke with patient over the phone today due to COVID precautions. Patient states to tolerating meal today. Overall intake has been 70-85% of meals. No diet concerns, understands the diabetic diet. Agree with diet orders. Monitoring; Follow up every 7 days.
[2020-04-15 12:00] VITALS: BP 135/60; PULSE 96; RESP 22; TEMP 36.6; O2SAT 91
[2020-04-15] MEDS: CENTRAL LINE FLUSH 10 ML IV PUSH ×3 (12:50→21:50)
[2020-04-15 13:08] LABS: Glucose Point of Care 177 (65-105)
[2020-04-15 16:00] VITALS: BP 110/44; PULSE 79; RESP 20; TEMP 36.4; O2SAT 100
--- NOTE | 2020-04-15 17:26 | PM.IMPN ---
Progress Note: A&P Assessment and Plan (1) Respiratory failure: Qualifiers: Chronicity: acute Respiratory failure complication: unspecified whether with hypoxia or hypercapnia Qualified Code(s): J96.00 - Acute respiratory failure, unspecified whether with hypoxia or hypercapnia Code(s): J96.90 - Respiratory failure, unspecified, unspecified whether with hypoxia or hypercapnia Status: Acute Assessment and Plan: Patient developed acute respiratory hypercarbia and hypoxia requiring intubation and ventilation. Patient was able to be extubated on 04/12/2020. He has been weaned to room air. Placement being arranged. (2) Shock: Code(s): R57.9 - Shock, unspecified Status: Acute Assessment and Plan: Possible sepsis due to wound infection (pseudomonas). Completed a course of imipenem on 04/12. Possibly due to GI blood loss as well. Was on Levophed for a short period of time and able to be weaned off quickly. (3) GI bleed: Qualifiers: GI bleed type/associated pathology: unspecified gastrointestinal hemorrhage type Qualified Code(s): K92.2 - Gastrointestinal hemorrhage, unspecified Code(s): K92.2 - Gastrointestinal hemorrhage, unspecified Status: Acute Assessment and Plan: Hgb 8.8 on admission. He received a total of 8U PRBC, 1 FFP and 1 Cryo. Last transfusion was 04/07. EGD 04/04 showing duodenitis with Dieulafoy's that was clipped. Continue Protonix BID. (4) Cellulitis of foot, right: Code(s): L03.115 - Cellulitis of right lower limb Status: Acute Assessment and Plan: Right foot wound cellulitis. Also with left wound as well. Cx growing pseudomonas. Treated with Primaxin 04/04 and now stopped 04/12. Xray showing mild osteopenia at the base of the right fifth metatarsal which could reflect osteomyelitis. ID input noted and not felt he had osteomyelitis. Continue dressing changes. (5) Acute blood loss anemia: Code(s): D62 - Acute posthemorrhagic anemia Status: Acute Assessment and Plan: As above. Hgb stable in the 8-9 range since EGD 04/04 and clipping of possible Dieulafoy's vascular anomaly. Hgb 9.2 yesterday (6) Acute hyponatremia: Code(s): E87.1 - Hypo-osmolality and hyponatremia Status: Acute Assessment and Plan: Na 123 on admission. Patient received 3% saline on 04/05/20. Na normal now. Follow periodically. (7) Severe sepsis: Code(s): A41.9 - Sepsis, unspecified organism; R65.20 - Severe sepsis without septic shock Status: Acute Assessment and Plan: Severe sepsis with shock. As above. (8) Paroxysmal atrial fibrillation: Code(s): I48.0 - Paroxysmal atrial fibrillation Status: Acute Assessment and Plan: Paced. Anticoagulation on hold due to GI bleed. Resume when okay with GI. He is tolerating prophylactic Lovenox (9) NURY (acute kidney injury): Code(s): N17.9 - Acute kidney failure, unspecified Status: Acute Assessment and Plan: Cr to 2.1. Cr has improved and normal now. Follow periodically (10) Hypertension: Qualifiers: Hypertension type: unspecified Qualified Code(s): I10 - Essential (primary) hypertension Code(s): I10 - Essential (primary) hypertension Status: Acute Assessment and Plan: BP reviewed on 04/15. BP remaining well controlled. Continue to monitor. Continue lisinopril (11) Insulin dependent type 2 diabetes mellitus: Code(s): E11.9 - Type 2 diabetes mellitus without complications; Z79.4 - prison (current) use of insulin Status: Acute Assessment and Plan: A1c 6.8. The patient's blood glucose was reviewed on 04/15 Glucose well controlled. Off insulin gtt. Takes Lantus at 25U QHS but on 20Units here. Monitor with AccuCheks covering with sliding scale. Hypoglycemia protocol available as needed. Continue Lantus at cur
[2020-04-15 17:41] LABS: Glucose Point of Care 169 (65-105)
[2020-04-15 20:00] VITALS: BP 110/73; PULSE 76; RESP 20; TEMP 36.6; O2SAT 92
[2020-04-15 20:32] LABS: Glucose Point of Care 166 (65-105)
[2020-04-15] MEDS: INSULIN GLARGINE (*BKC) 100 UNITS/ML 20 UNITS SUB-Q (21:50)
[2020-04-16] VITALS: BP 118/62; PULSE 82; RESP 20; TEMP 36.6; O2SAT 96
[2020-04-16] MEDS: CENTRAL LINE FLUSH 10 ML IV PUSH ×2 (08:13→15:39)
[2020-04-16] MEDS: metFORMIN HCL 500 MG TABLET 1000 MG PO (08:14)
[2020-04-16] MEDS: PANTOPRAZOLE 40 MG TABLET PO (08:14)
[2020-04-16] MEDS: lisinopriL 10 MG TABLET PO (08:14)
[2020-04-16] MEDS: ROSUVASTATIN 10 MG TABLET PO (08:15)
[2020-04-16] MEDS: ENOXAPARIN 40 MG/0.4 ML SYRINGE SUB-Q (08:15)
[2020-04-16] MEDS: SILVERGEL (ELTA) 45 ML 1 APPLIC TOPICAL (08:23)
[2020-04-16] MEDS: TOLNAFTATE 1% POWDER 45 GM BTL 1 APPLIC TOPICAL (08:24)
[2020-04-16] MEDS: POTASSIUM CHLORIDE 20 MEQ TABLET 40 MEQ PO (10:19)
[2020-04-16 12:37] LABS: Glucose Point of Care 171 (65-105)
[2020-04-16 12:37] LABS: Glucose Point of Care 128 (65-105)
[2020-04-16 14:00] VITALS: BP 142/59; PULSE 97; RESP 20; TEMP 36.6; O2SAT 93
--- NOTE | 2020-04-16 14:01 | PM.IMPN ---
Progress Note: A&P Assessment and Plan (1) Respiratory failure: Qualifiers: Chronicity: acute Respiratory failure complication: unspecified whether with hypoxia or hypercapnia Qualified Code(s): J96.00 - Acute respiratory failure, unspecified whether with hypoxia or hypercapnia Code(s): J96.90 - Respiratory failure, unspecified, unspecified whether with hypoxia or hypercapnia Status: Acute Assessment and Plan: Patient developed acute respiratory hypercarbia and hypoxia requiring intubation and ventilation. Patient was able to be extubated on 04/12/2020. He has been weaned to room air. Placement arranged for rehab (2) Shock: Code(s): R57.9 - Shock, unspecified Status: Acute Assessment and Plan: Possible sepsis due to wound infection (pseudomonas). Completed a course of imipenem on 04/12. Possibly due to GI blood loss as well. Was on Levophed for a short period of time and able to be weaned off quickly. BP stable now (3) GI bleed: Qualifiers: GI bleed type/associated pathology: unspecified gastrointestinal hemorrhage type Qualified Code(s): K92.2 - Gastrointestinal hemorrhage, unspecified Code(s): K92.2 - Gastrointestinal hemorrhage, unspecified Status: Acute Assessment and Plan: Hgb 8.8 on admission. He received a total of 8U PRBC, 1 FFP and 1 Cryo. Last transfusion was 04/07. EGD 04/04 showing duodenitis with Dieulafoy's that was clipped. Continue Protonix BID. hgb stable at 9.2 (4) Cellulitis of foot, right: Code(s): L03.115 - Cellulitis of right lower limb Status: Acute Assessment and Plan: Right foot wound cellulitis. Also with left wound as well. Cx growing pseudomonas. Treated with Primaxin 04/04 and now stopped 04/12. Xray showing mild osteopenia at the base of the right fifth metatarsal which could reflect osteomyelitis. ID input noted and not felt he had osteomyelitis. Continue dressing changes. (5) Acute blood loss anemia: Code(s): D62 - Acute posthemorrhagic anemia Status: Acute Assessment and Plan: As above. Hgb stable in the 8-9 range since EGD 04/04 and clipping of possible Dieulafoy's vascular anomaly. Hgb 9.2 04/14 (6) Acute hyponatremia: Code(s): E87.1 - Hypo-osmolality and hyponatremia Status: Acute Assessment and Plan: Na 123 on admission. Patient received 3% saline on 04/05/20. Na normal now 138 04/15 (7) Severe sepsis: Code(s): A41.9 - Sepsis, unspecified organism; R65.20 - Severe sepsis without septic shock Status: Acute Assessment and Plan: Severe sepsis with shock. As above.resolved (8) Paroxysmal atrial fibrillation: Code(s): I48.0 - Paroxysmal atrial fibrillation Status: Acute Assessment and Plan: Paced. Anticoagulation on hold due to GI bleed. Resume when okay with GI. He is tolerating prophylactic Lovenox (9) NURY (acute kidney injury): Code(s): N17.9 - Acute kidney failure, unspecified Status: Acute Assessment and Plan: Cr to 2.1. Cr has improved and normal now, 0.8 04/15. . Follow periodically (10) Hypertension: Qualifiers: Hypertension type: unspecified Qualified Code(s): I10 - Essential (primary) hypertension Code(s): I10 - Essential (primary) hypertension Status: Acute Assessment and Plan: BP reviewed on 04/16. BP remaining well controlled. Continue to monitor. 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 The patient's blood glucose was reviewed on 04/16 Glucose well controlled. Off insulin gtt. Takes Lantus at 25U QHS but on 20Units here. Monitor with AccuCheks covering with sliding scale. Hypoglycemia protocol a
[2020-04-16] MEDS: NEOMYCIN/POLYMYXIN/BACITRACIN OINTMENT PACKET 1 PACKET (15:39)
--- NOTE | 2020-04-16 17:58 | PM.DS ---
DS: Admitting Diagnosis Admitting Diagnosis Admitting Diagnosis: Respiratory failure and shock secondary to probable sepsis and GI bleeding. DS: Discharge Diagnosis Discharge Diagnosis (1) Respiratory failure: Qualifiers: Chronicity: acute Respiratory failure complication: unspecified whether with hypoxia or hypercapnia Qualified Code(s): J96.00 - Acute respiratory failure, unspecified whether with hypoxia or hypercapnia Code(s): J96.90 - Respiratory failure, unspecified, unspecified whether with hypoxia or hypercapnia Status: Acute Assessment and Plan: Patient developed acute respiratory hypercarbia and hypoxia requiring intubation and ventilation. Patient was able to be extubated on 04/12/2020. He has been weaned to room air. Placement arranged for rehab at [facility] (2) Shock: Code(s): R57.9 - Shock, unspecified Status: Acute Assessment and Plan: Possible sepsis due to wound infection (pseudomonas). Completed a course of imipenem on 04/12. Possibly due to GI blood loss as well. Was on Levophed for a short period of time and able to be weaned off quickly. BP stable now (3) GI bleed: Qualifiers: GI bleed type/associated pathology: unspecified gastrointestinal hemorrhage type Qualified Code(s): K92.2 - Gastrointestinal hemorrhage, unspecified Code(s): K92.2 - Gastrointestinal hemorrhage, unspecified Status: Acute Assessment and Plan: Hgb 8.8 on admission. He received a total of 8U PRBC, 1 FFP and 1 Cryo. Last transfusion was 04/07. EGD 04/04 showing duodenitis with Dieulafoy's that was clipped. Continue Protonix BID. hgb stable at 9.2 (4) Cellulitis of foot, right: Code(s): L03.115 - Cellulitis of right lower limb Status: Acute Assessment and Plan: Right foot wound cellulitis. Also with left wound as well. Cx growing pseudomonas. Treated with Primaxin 04/04 and now stopped 04/12. Xray showing mild osteopenia at the base of the right fifth metatarsal which could reflect osteomyelitis. ID input noted and not felt he had osteomyelitis. Continue dressing changes. (5) Acute blood loss anemia: Code(s): D62 - Acute posthemorrhagic anemia Status: Acute Assessment and Plan: As above. Hgb stable in the 8-9 range since EGD 04/04 and clipping of possible Dieulafoy's vascular anomaly. Hgb 9.2 04/14 (6) Acute hyponatremia: Code(s): E87.1 - Hypo-osmolality and hyponatremia Status: Acute Assessment and Plan: Na 123 on admission. Patient received 3% saline on 04/05/20. Na normal now 138 04/15 (7) Severe sepsis: Code(s): A41.9 - Sepsis, unspecified organism; R65.20 - Severe sepsis without septic shock Status: Acute Assessment and Plan: Severe sepsis with shock. As above.resolved (8) Paroxysmal atrial fibrillation: Code(s): I48.0 - Paroxysmal atrial fibrillation Status: Acute Assessment and Plan: Paced. Anticoagulation on hold due to GI bleed. Resume when okay with GI. He tolerated prophylactic Lovenox (9) NURY (acute kidney injury): Code(s): N17.9 - Acute kidney failure, unspecified Status: Acute Assessment and Plan: Cr to 2.1. Cr has improved and normal now, 0.8 04/15. . Follow periodically (10) Hypertension: Qualifiers: Hypertension type: unspecified Qualified Code(s): I10 - Essential (primary) hypertension Code(s): I10 - Essential (primary) hypertension Status: Acute Assessment and Plan: BP reviewed on 04/16. BP remaining well controlled. Continue to monitor. 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 The patient's blood glucose was reviewed on 04/02
[2020-04-16 22:42] LABS: SARS-CoV-2 RNA PCR Negative
== END 2020-04-16 17:00 | disposition swing bed (61) | DRG 853 ==
LOC: ANHED 14:59 → ANHICU 15:23 → ANH3MEDSUR 04-16 14:41 → ANHICU 04-17 13:18
PROVIDERS: Internal Medicine; Internal Medicine Gastroenterology; Internal Medicine Nephrology; Physician Assistant; Student in an Organized Health Care Education/Training Program; Admitting Provider Family Medicine; Emergency Provider Emergency Medicine; Visit Provider Internal Medicine
PROC: 0DJ08ZZ Inspection of Upper Intestinal Tract, Via Natural or Artificial Opening Endoscopic (ICD-10-PCS; CPT 43235; principal; 2020-04-04 14:00)
DX: A41.9 Sepsis, unspecified organism (principal); E11.00 Type 2 diabetes mellitus with hyperosmolarity without nonketotic hyperglycemic-hyperosmolar coma (NKHHC); R57.8 Other shock; K31.82 Dieulafoy lesion (hemorrhagic) of stomach and duodenum; J96.00 Acute respiratory failure, unspecified whether with hypoxia or hypercapnia; L03.115 Cellulitis of right lower limb; D62 Acute posthemorrhagic anemia; E87.1 Hypo-osmolality and hyponatremia; N17.9 Acute kidney failure, unspecified; Z68.43 Body mass index [BMI] 50.0-59.9, adult; E87.3 Alkalosis; Z95.0 Presence of cardiac pacemaker; I10 Essential (primary) hypertension; E78.5 Hyperlipidemia, unspecified; I48.0 Paroxysmal atrial fibrillation; E87.5 Hyperkalemia; E11.42 Type 2 diabetes mellitus with diabetic polyneuropathy; E66.01 Morbid (severe) obesity due to excess calories; K29.80 Duodenitis without bleeding; Z20.828 Contact with and (suspected) exposure to other viral communicable diseases; R65.20 Severe sepsis without septic shock
CPT/HCPCS: 36415; 36430; 36556; 36600; 71045; 73620; 73630; 74018; 74177; 80048; 80053; 80061; 80069; 80076; 80202; 81001; 82375; 82533; 82652; 82805; 83036; 83050; 83605; 83735; 84100; 84295; 84439; 84443; 84484; 85014; 85018; 85025; 85027; 85380; 85384; 85610; 85730; 86140; 86850; 86900; 86901; 86923; 87040; 87070; 87077; 87186; 87205; 87635; 93005; 93306; 93978; 94002; 94003; 96360; 96374; 96375; 97110; 97163; 97165; 97530; 97535; 99285; A9270; C1751; C9113; C9803; J0171; J0330; J0743; J1265; J1650; J1720; J1815; J1940; J2250; J2370; J2704; J2765; J3010; J3370; J3430; J7030; J7040; J7050; J7060; J7131; P9012; P9016; P9017; P9047; Q9967; U0003

== ENCOUNTER 2020-04-16 18:04 | Inpatient (IN) | payer MEDICARE, SELFPAY ==
[2020-04-16 18:05] VITALS: BP 104/56; PULSE 90; RESP 20; TEMP 36.6; O2SAT 97; BMI 55.5
--- NOTE | 2020-04-16 18:10 | PC.NURSE ---
given sandwich for dinner at [facility] [facility]
--- NOTE | 2020-04-16 18:28 | PC.NURSE ---
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
--- NOTE | 2020-04-16 19:25 | PC.NURSE ---
pt refused to remove socks and have dressings on feet assessed, stating they were done before he left [facility] and didn't need to be done again
[2020-04-16 23:50] VITALS: O2SAT 89
[2020-04-17] VITALS: BP 115/57; PULSE 83; RESP 18; TEMP 36.7; O2SAT 96
--- NOTE | 2020-04-17 | PC.NURSE ---
pt oxygen level was 89%, oxygen at 2L NC applied, saturation raised to 96%, will wean per protocol
--- NOTE | 2020-04-17 03:56 | PC.NURSE ---
pt blood glucose at 211804/16/20 result of 205
[2020-04-17 07:50] LABS: Glucose Point of Care 207 (65-105)
[2020-04-17 08:00] VITALS: BP 106/60; PULSE 88; RESP 24; TEMP 36.6; O2SAT 97
[2020-04-17] MEDS: ROSUVASTATIN 10 MG TABLET PO (09:06)
[2020-04-17] MEDS: metFORMIN HCL 500 MG TABLET 1000 MG PO (09:06)
[2020-04-17] MEDS: lisinopriL 10 MG TABLET PO (09:06)
[2020-04-17] MEDS: ENOXAPARIN 40 MG/0.4 ML SYRINGE SUB-Q ×2 (09:06→21:18)
[2020-04-17] MEDS: PANTOPRAZOLE 40 MG TABLET PO ×2 (09:06→21:18)
--- NOTE | 2020-04-17 11:03 | PC.NURSE ---
2 areas right outer foot. One open,dry. One intact,soft. Upper outer right leg black area,dry. Left outer foot open,dry.
[2020-04-17 11:32] LABS: Glucose Point of Care 213 (65-105)
[2020-04-17 12:14] LABS: Glucose Point of Care 205 (65-105)
[2020-04-17 16:00] VITALS: BP 98/60; PULSE 88; RESP 16; TEMP 36.6; O2SAT 95
[2020-04-17 17:19] LABS: Glucose Point of Care 188 (65-105)
[2020-04-17] MEDS: FUROSEMIDE 40 MG TABLET PO (18:28)
[2020-04-17] MEDS: INSULIN GLARGINE (*BKC) 100 UNITS/ML 20 UNITS SUB-Q (21:16)
[2020-04-17 21:29] LABS: Glucose Point of Care 192 (65-105)
[2020-04-18] VITALS: BP 118/55; PULSE 77; RESP 18; TEMP 37.1; O2SAT 100
--- NOTE | 2020-04-18 01:44 | WPDREHABHP ---
H&P: HPI History of Present Illness Date/Time: 04/18/20 01:44 Chief Complaint: Physical debility Narrative: Kimani Leos is a 69 year old male with a PMH of Afib w/ RVR s/p ablation and pacemaker placement, GI bleed, sepsis, HLD, DMII, HTN that was admitted to swing bed therapy. He was admitted for a GI bleed, sepsis, and respiratory failure on 04/03. He required multiple transfusions and had a Dieulafoy lesion clipped on EGD on 04/04. He was intubated for respiratory failure 2/2 sepsis and extubated on 04/12. He completed a course of abs for sepsis 2/2 pseudomonas. He was very weak and sent to swing bed for rehab. Review of Systems Constitutional Constitutional: Denies chills, Reports fatigue, Denies night sweats and Reports weakness Eyes Eyes: Reports no additional eye complaints ENT Reports system reviewed and no additional complaints, except as documented Cardiovascular Cardiovascular: Reports no additional cardiovascular complaints Respiratory Respiratory: Reports no additional respiratory complaints Gastrointestinal Gastrointestinal: Reports no additional gastrointestinal complaints Genitourinary Genitourinary: Reports no additional male genitourinary complaints Musculoskeletal Musculoskeletal: Reports no additional musculoskeletal complaints Integumentary/Breasts Skin/Breast: Reports system reviewed and no additional complaints, except as docu Neurologic Reports system reviewed and no additional complaints, except as documented Psychiatric Psychiatric: Reports no additional psychiatric complaints [facility] Past Medical History Medical History Adenomatous colon polyp Ascending colon x3 on colonoscopy 10/05/2019. Cholelithiasis Current use of terminal operator anticoagulation On Xarelto for paroxysmal atrial fibrillation. 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 Diabetic peripheral neuropathy HLD (hyperlipidemia) HTN (hypertension) Insulin dependent type 2 diabetes mellitus Paroxysmal atrial fibrillation Status post cardiac ablation and permanent pacemaker insertion. Super obesity Surgical History Surgical History H/O colonoscopy History of arthroscopic knee surgery History of cardiac radiofrequency ablation History of carpal tunnel release History of permanent cardiac pacemaker placement Family History Family History Mother Tuberculosis Kidney disease Father Lung cancer Heart attack Sibling Ovarian cancer Malignant neoplasm of prostate Lung cancer Social History Social History Social History: Surrogate decision maker: Colleen Leos, . Code status: Full code. Smoking status: Former smoker Second hand tobacco smoke exposure: No Alcohol intake: never Substance use: never Substance use type: does not use Additional living arrangements comments: Patient lives with his in [place]. They have 3 Tillman terriers. Additional occupation/education comments: Technically retired however he still works in [employer]. Gender identity (if verbalized by the patient): Male Spiritual care concerns: No Meds Home Medications and Allergies Home Medications Medication Instructions Recorded Confirmed Type Janumet 1 tablet PO DAILY 10/02/19 04/16/20 History ProAir RespiClick 1 inh INHALATION PRN PRN 10/02/19 04/16/20 History lisinopril 10 mg PO DAILY 10/02/19 04/16/20 History rosuvastatin 10 mg PO DAILY 10/02/19 04/16/20 History enoxaparin [Lovenox] 40 mg SUBCUT DAILY #3 ml 04/16/20 04/16/20 Rx insulin glargine [Lantus U-100 20 unit SUBCUT HS #10 ml 04/16/20 04/16/20 Rx Insulin] pantoprazole 40 mg PO Q12HR #60 tablet 04/16/20 04/16/20 Rx Allergies Allergy/AdvReac Type Severity Reaction Status Date / Time clindamycin Agustin
[2020-04-18 08:00] VITALS: BP 93/48; PULSE 79; RESP 20; TEMP 37.1; O2SAT 99
[2020-04-18 08:04] LABS: Glucose Point of Care 193 (65-105)
[2020-04-18] MEDS: metFORMIN HCL 500 MG TABLET 1000 MG PO (09:10)
[2020-04-18] MEDS: PANTOPRAZOLE 40 MG TABLET PO ×2 (09:10→20:05)
[2020-04-18] MEDS: FUROSEMIDE 40 MG TABLET PO (09:10)
[2020-04-18] MEDS: ROSUVASTATIN 10 MG TABLET PO (09:10)
[2020-04-18] MEDS: lisinopriL 10 MG TABLET PO (09:10)
[2020-04-18] MEDS: ENOXAPARIN 40 MG/0.4 ML SYRINGE SUB-Q ×2 (09:10→20:06)
[2020-04-18 11:27] LABS: Glucose Point of Care 213 (65-105)
--- NOTE | 2020-04-18 14:10 | P.PN_ITS ---
Progress Note: A&P Assessment and Plan (1) Lower GI bleeding: Code(s): K92.2 - Gastrointestinal hemorrhage, unspecified <Desmond SaucedoCARRINGTON - Last Filed: 04/18/20 14:31> Status: Acute <Desmond SaucedoHAYC - Last Filed: 04/18/20 14:31> Assessment and Plan: * Secondary to Dieulafroy lesion * Clipped with endoscopic 04/04/2020 * Continue Protonix * GI suggest continue caution with aspirin NSAIDs and anticoagulants * Patient received 8 units of PRBCs and 1 FFP and 1 cryo while at [place] <Desmond SaucedoHAYC - Last Filed: 04/18/20 14:31> (2) Paroxysmal atrial fibrillation: Code(s): I48.0 - Paroxysmal atrial fibrillation <Desmond SaucedoCARRINGTON - Last Filed: 04/18/20 14:31> Status: Acute <Desmond SaucedoCARRINGTON - Last Filed: 04/18/20 14:31> Assessment and Plan: * Controlled * Anticoagulant contraindicated due to recent GI bleed * Will contact GI to determine whether or not the anti-coagulant will be restarted <Desmond ByrdCARRINGTON Aburto - Last Filed: 04/18/20 14:31> (3) Hypertension: Qualifiers: Hypertension type: unspecified Qualified Code(s): I10 - Essential (primary) hypertension <Desmond ByrdWan LewisCARRINGTON - Last Filed: 04/18/20 14:31> Code(s): I10 - Essential (primary) hypertension <Desmond ByrdCARRINGTON Aburto - Last Filed: 04/18/20 14:31> Status: Acute <Desmond SaucedoCARRINGTON - Last Filed: 04/18/20 14:31> Assessment and Plan: * Patient blood sugar on the soft side * Lisinopril 10 mg on hold due to soft blood pressure * Vital signs as ordered * Just medication as needed <Brocelia RochelleCARRINGTON Aburto - Last Filed: 04/18/20 14:31> (4) Weakness: Code(s): R53.1 - Weakness <Brocelia RochelleCARRINGTON Aburto - Last Filed: 04/18/20 14:31> Status: Acute <Desmond Saucedo [employer]OL[employer] SPR[employer] DRIER-C - Last Filed: 04/18/20 14:31> Assessment and Plan: ? Exhibit tolerance during physical activity as evidenced by a normal fluctuation of vital signs during physical activity. ? Patient will be ability to perform required activities of daily living. ? Provide appropriate nutrition for healing and strength. ? Use appropriate to prevent falls. ? Continue physical therapy/occupational therapy. <Desmond SaucedoERIKA-C - Last Filed: 04/18/20 14:31> (5) Respiratory failure: Qualifiers: Chronicity: acute Respiratory failure complication: unspecified whether with hypoxia or hypercapnia Qualified Code(s): J96.00 - Acute respiratory failure, unspecified whether with hypoxia or hypercapnia <Desmond ByrdHAY AburtoC - Last Filed: 04/18/20 14:31> Code(s): J96.90 - Respiratory failure, unspecified, unspecified whether with hypoxia or hypercapnia <Desmond ByrdERIKA Aburto-C - Last Filed: 04/18/20 14:31> Status: Acute <Desmond SaucedoERIKA-C - Last Filed: 04/18/20 14:31> Assessment and Plan: * Resolved * Secondary to Covid * Patient was intubated while at [place] * Will continue albuterol in Symbicort * Tested positive for Covid on 03/18/2020 <Desmond ByrdWan LewisERIKA-C - Last Filed: 04/18/20 14:31> (6) NURY (acute kidney injury): Code(s): N17.9 - Acute kidney failure, unspecified <Desmond SaucedoERIKA-C - Last Filed: 04/18/20 14:31> Status: Acute <Desmond SaucedoERIKA-C - Last Filed: 04/18/20 14:31> Assessment and Plan: * Patient baseline creatinine 0.8 04/15 * Repeat creatinine in the a.m. * Avoid nephrotoxic agents * Renal dose medication if needed <Desmond RochelleCARRINGTON Aburto - Last Filed:
--- NOTE | 2020-04-18 14:10 | WPDPN ---
Progress Note: A&P Assessment and Plan (1) Lower GI bleeding: Code(s): K92.2 - Gastrointestinal hemorrhage, unspecified <Desmond Saucedo CERTIFIED REGISTERED LOCKSMITHShirleyJosue - Last Filed: 04/18/20 14:31> Status: Acute <Desmond Saucedo HAYC - Last Filed: 04/18/20 14:31> Assessment and Plan: Secondary to Dieulafroy lesion Clipped with endoscopic 04/04/2020 Continue Protonix GI suggest continue caution with aspirin NSAIDs and anticoagulants Patient received 8 units of PRBCs and 1 FFP and 1 cryo while at [place] <Desmond Saucedo CERTIFIED REGISTERED LOCKSMITHShirleyC - Last Filed: 04/18/20 14:31> (2) Paroxysmal atrial fibrillation: Code(s): I48.0 - Paroxysmal atrial fibrillation <Desmond Saucedo CERTIFIED REGISTERED LOCKSMITH-C - Last Filed: 04/18/20 14:31> Status: Acute <Desmond SaucedoISAIAHChrisJosue - Last Filed: 04/18/20 14:31> Assessment and Plan: Controlled Anticoagulant contraindicated due to recent GI bleed Will contact GI to determine whether or not the anti-coagulant will be restarted <Desmond ByrdWan LewisERIKA-C - Last Filed: 04/18/20 14:31> (3) Hypertension: Qualifiers: Hypertension type: unspecified Qualified Code(s): I10 - Essential (primary) hypertension <Desmond Saucedo CERTIFIED REGISTERED LOCKSMITH-C - Last Filed: 04/18/20 14:31> Code(s): I10 - Essential (primary) hypertension <Desmond ByrdCARRINGTON Aburto - Last Filed: 04/18/20 14:31> Status: Acute <Desmond SaucedoCARRINGTON - Last Filed: 04/18/20 14:31> Assessment and Plan: Patient blood sugar on the soft side Lisinopril 10 mg on hold due to soft blood pressure Vital signs as ordered Just medication as needed <Desmond ByrdCARRINGTON Aburto - Last Filed: 04/18/20 14:31> (4) Weakness: Code(s): R53.1 - Weakness <Brocelia RochelleCARRINGTON Aburto - Last Filed: 04/18/20 14:31> Status: Acute <HAY CejaC - Last Filed: 04/18/20 14:31> Assessment and Plan: ? Exhibit tolerance during physical activity as evidenced by a normal fluctuation of vital signs during physical activity. ? Patient will be ability to perform required activities of daily living. ? Provide appropriate nutrition for healing and strength. ? Use appropriate to prevent falls. ? Continue physical therapy/occupational therapy. <CARRINGTON Ceja - Last Filed: 04/18/20 14:31> (5) Respiratory failure: Qualifiers: Chronicity: acute Respiratory failure complication: unspecified whether with hypoxia or hypercapnia Qualified Code(s): J96.00 - Acute respiratory failure, unspecified whether with hypoxia or hypercapnia <CARRINGTON Ceja - Last Filed: 04/18/20 14:31> Code(s): J96.90 - Respiratory failure, unspecified, unspecified whether with hypoxia or hypercapnia <ERIKA Ceja-C - Last Filed: 04/18/20 14:31> Status: Acute <ERIKA Ceja-C - Last Filed: 04/18/20 14:31> Assessment and Plan: Resolved Secondary to Covid Patient was intubated while at [place] Will continue albuterol in Symbicort Tested positive for Covid on 03/18/2020 <ERIKA Ceja-C - Last Filed: 04/18/20 14:31> (6) NURY (acute kidney injury): Code(s): N17.9 - Acute kidney failure, unspecified <ERIKA Ceja-C - Last Filed: 04/18/20 14:31> Status: Acute <ERIKA Ceja-C - Last Filed: 04/18/20 14:31> Assessment and Plan: Patient baseline creatinine 0.8 04/15 Repeat creatinine in the a.m. Avoid nephrotoxic agents Renal dose medication if needed <HAY CejaC - Last Filed: 04/18/20 14:31> (7) Insulin dependent type 2 diabetes mellitus: Code(s): E11.9 - Type 2 diabetes mellitus without complications; Z79.4 - key maker (current) use of insulin <CARRINGTON Ceja - Last Filed: 04/18/20 14:31> Status: Acute <CARRINGTON Ceja - Last Filed: 04/18/20 14:31> Assessment and Plan:
[2020-04-18 15:33] VITALS: BP 70/40; PULSE 76; RESP 20; TEMP 37; O2SAT 96
--- NOTE | 2020-04-18 16:22 | PC.NURSE ---
notified that patient's blood pressure was 70/40. New orders to hold Lasix and Lisinopril.
[2020-04-18 17:00] VITALS: BP 97/54
[2020-04-18 17:30] LABS: Glucose Point of Care 175 (65-105)
[2020-04-18] MEDS: BUDESONIDE/FORMOTEROL 80/4.5 MCG 6.9 GM INHALER (*SP) 2 PUFF INHALATION (17:30)
[2020-04-18] MEDS: traZODone HCL 50 MG TABLET PO (20:05)
[2020-04-18] MEDS: DOCUSATE SODIUM 100 MG CAPSULE PO (20:05)
[2020-04-18] MEDS: INSULIN GLARGINE (*BKC) 100 UNITS/ML 20 UNITS SUB-Q (20:06)
[2020-04-18 20:18] LABS: Glucose Point of Care 219 (65-105)
--- NOTE | 2020-04-18 21:30 | PC.NURSE ---
pt sitting in chair and does not want to lay in bed at this time, pillows provided for support of lower extremities
[2020-04-18 23:03] VITALS: BP 102/50; PULSE 85; RESP 18; TEMP 36.8; O2SAT 95
--- NOTE | 2020-04-19 02:20 | PC.NURSE ---
pt complaining of pain in his buttocks from sitting in chair all day, pt persuaded to go to bed and get off of bottom, pt agreed, pt assisted to bed, walker and gait belt used, multiple attempts to stand and 1 assist required to get to standing position, pt positioned on right side with pillows for support
--- NOTE | 2020-04-19 04:20 | PC.NURSE ---
pt wanted to get back up in chair, assist of 1 with gait belt and walker, pt tolerated well
[2020-04-19] MEDS: BUDESONIDE/FORMOTEROL 80/4.5 MCG 6.9 GM INHALER (*SP) 2 PUFF INHALATION ×2 (05:47→18:14)
[2020-04-19 06:30] VITALS: O2SAT 97
[2020-04-19 07:39] LABS: Glucose Point of Care 163 (65-105)
[2020-04-19 08:00] VITALS: BP 87/50; PULSE 75; RESP 22; TEMP 36.9; O2SAT 97
[2020-04-19] MEDS: metFORMIN HCL 500 MG TABLET 1000 MG PO ×2 (09:56→09:57)
[2020-04-19] MEDS: ENOXAPARIN 40 MG/0.4 ML SYRINGE SUB-Q ×2 (09:56→21:18)
[2020-04-19] MEDS: polyethylene glycoL 3350 17 GM POWD.PACK PO (09:57)
[2020-04-19] MEDS: ROSUVASTATIN 10 MG TABLET PO (09:57)
[2020-04-19] MEDS: PANTOPRAZOLE 40 MG TABLET PO ×2 (09:57→21:17)
[2020-04-19] MEDS: DOCUSATE SODIUM 100 MG CAPSULE PO ×2 (09:57→21:17)
--- NOTE | 2020-04-19 10:25 | PM.EVENT ---
Event Note Event Note Event Note: received report from nursing staff that patient wanted to speak with provider. Nursing reported that patient family had concerns with the care that the patient was receiving. I did speak with the patient he was concerned about the ulcers on his lower extremity and his buttocks. According to patient at home he changes his dressings every day. We explained to patient that the dressing Mepilex that was applied does not need to be changed daily. I did explain to the patient that as a swing bed patient we do not visit patients daily, you do not collect labs daily. I informed him that patients then accepted into swing bed are medically stable and is here for rehab. I explained that provider review patient's vital signs daily and order diagnostic tests if needed. Also explained to him that we occasionally draw labs weekly. Patient concerned that his potassium will drop, patient is on supplementary potassium daily. Patient is also concerned about his blood pressure blood pressure currently 102/50. Patient believes that his blood pressure medication should be discontinued. Patient lisinopril decreased to 5 mg daily. We will continue to monitor. ulcer-large deep injury to sacral region that extend down the coccyx, cleft on bilateral buttock L-9.0 W- 3.0 well approximated . antifungalcream applied due to satelite yeast per [facility] care nurse notes 04/10/20. foot left lateral old healing ulcer with no drainage. foot right lateral 1.near phalanges approximately 1 cm with quarter sized brownish drainage on dressing, open 2. Directly behind first ulcer approximately0.5 cm healing well and closed no drainage 3.Right side of lateral leg open area approximately 2 cm dressing with approximately quarter size of brown drainage Dressed with Mepilex at this time. I have put in a consult for the wound nurse for recommendations. I will treat according to recommendations. No obvious signs and symptoms of infection noted at this time
[2020-04-19 11:33] LABS: Glucose Point of Care 215 (65-105)
[2020-04-19 16:00] VITALS: BP 94/56; PULSE 75; RESP 18; TEMP 37.1; O2SAT 97
[2020-04-19 17:34] LABS: Glucose Point of Care 203 (65-105)
[2020-04-19] MEDS: INSULIN GLARGINE (*BKC) 100 UNITS/ML 20 UNITS SUB-Q (21:16)
[2020-04-19 21:22] LABS: Glucose Point of Care 200 (65-105)
[2020-04-20 00:43] VITALS: BP 107/35; PULSE 80; RESP 20; TEMP 36.8; O2SAT 94
[2020-04-20 05:39] LABS: Hematocrit 28.9 % (37.0-46.0); Hemoglobin 8.8 g/dL (12.4-15.3); Mean Corpuscular HGB Conc 30.4 g/dL (32.0-36.0); Mean Corpuscular Hemoglobin 30.8 pg (27.0-31.0); Platelet Count Result 352 K/mm3 (150-420); Red Blood Count 2.86 M/mm3 (4.70-6.10); Red Cell Distribution Width 16.3 % (11.6-14.4); White Blood Count 9.6 K/mm3 (4.8-10.8)
[2020-04-20] MEDS: BUDESONIDE/FORMOTEROL 80/4.5 MCG 6.9 GM INHALER (*SP) 2 PUFF INHALATION ×2 (06:04→18:26)
[2020-04-20 06:06] LABS: Alanine Aminotransferase 24 U/L (16-63); Albumin Level 2.6 g/dL (3.4-5.0); Alkaline Phosphatase 56 U/L (46-116); Anion Gap 3 mmol/L (8-16); Aspartate Amino Transferase 15 U/L (15-37); Bilirubin,Total 0.4 mg/dL (0.00-1.00); Blood Urea Nitrogen 15 mg/dL (7-18); Calcium 9.3 mg/dL (8.5-10.1); Carbon Dioxide 32 mmol/L (21-32); Chloride 101 mmol/L (98-108); Estimated CRCL calculation 107 ml/min; Estimated Glomerular Filt Rate > 60; Glucose 151 mg/dL (70-99); Osmolality Calculated 285 mOsm/kg (285-295); Potassium 3.9 mmol/L (3.5-5.1); Sodium 136 mmol/L (136-145); Total Protein 6.2 g/dL (6.4-8.2)
[2020-04-20 07:54] LABS: Glucose Point of Care 166 (65-105)
[2020-04-20 08:00] VITALS: BP 118/58; PULSE 70; RESP 18; TEMP 37.1; O2SAT 96
[2020-04-20] MEDS: POTASSIUM CHLORIDE 20 MEQ TABLET 40 MEQ PO (09:34)
[2020-04-20] MEDS: ROSUVASTATIN 10 MG TABLET PO (09:35)
[2020-04-20] MEDS: PANTOPRAZOLE 40 MG TABLET PO ×2 (09:35→20:02)
[2020-04-20] MEDS: DOCUSATE SODIUM 100 MG CAPSULE PO ×2 (09:35→20:02)
[2020-04-20] MEDS: polyethylene glycoL 3350 17 GM POWD.PACK PO (09:48)
[2020-04-20] MEDS: ENOXAPARIN 40 MG/0.4 ML SYRINGE SUB-Q ×2 (09:50→20:01)
[2020-04-20] MEDS: metFORMIN HCL 500 MG TABLET 1000 MG PO (10:33)
[2020-04-20 13:35] LABS: Glucose Point of Care 217 (65-105)
[2020-04-20 15:40] VITALS: BP 119/62; PULSE 88; RESP 18; TEMP 36.8; O2SAT 95
[2020-04-20 17:11] LABS: Glucose Point of Care 131 (65-105)
[2020-04-20] MEDS: INSULIN GLARGINE (*BKC) 100 UNITS/ML 20 UNITS SUB-Q (20:02)
[2020-04-20 20:48] LABS: Glucose Point of Care 186 (65-105)
[2020-04-20] MEDS: FLUTICASONE PROPIONATE 0.05% NA SPR 16 GM BTL (*BKC) 1 SPRAY NASAL (21:25)
[2020-04-20 23:15] VITALS: BP 124/68; PULSE 78; RESP 18; TEMP 37.3; O2SAT 94
--- NOTE | 2020-04-21 01:51 | PC.NURSE ---
pt sleeping in chair, respirations even and regular, no evidence of distress noted
[2020-04-21] MEDS: BUDESONIDE/FORMOTEROL 80/4.5 MCG 6.9 GM INHALER (*SP) 2 PUFF INHALATION ×2 (05:47→17:41)
--- NOTE | 2020-04-21 07:49 | PM.EVENT ---
Event Note Event Note Event Note: Received report from the nursing staff that patient's family members would like for him to discharge home today. I spoke with patient and informed him that medically he is cleared to discharge but he would first have to be cleared by physical therapy/Occupational Therapy. I informed him that they are not here today he would have to wait till tomorrow so that physical therapy/Occupational Therapy iand case coordination to work together to prepare for his discharge if he is cleared. Patient request that physical therapy/occupational therapy and case coordination be notified today for his discharge. I informed him that that could not happen. patient reports that his daughter is a nurse and that she can care for him at home. I also informed patient that if he decides to leave today he would have to leave AMA.
[2020-04-21 08:00] VITALS: BP 123/73; PULSE 89; RESP 18; TEMP 36.7; O2SAT 98
[2020-04-21 08:00] LABS: Glucose Point of Care 185 (65-105)
[2020-04-21] MEDS: metFORMIN HCL 500 MG TABLET 1000 MG PO (08:55)
[2020-04-21] MEDS: POTASSIUM CHLORIDE 20 MEQ TABLET 40 MEQ PO (08:55)
[2020-04-21] MEDS: ENOXAPARIN 40 MG/0.4 ML SYRINGE SUB-Q ×2 (08:56→20:04)
[2020-04-21] MEDS: PANTOPRAZOLE 40 MG TABLET PO ×2 (08:56→20:03)
[2020-04-21] MEDS: ROSUVASTATIN 10 MG TABLET PO (08:56)
[2020-04-21] MEDS: polyethylene glycoL 3350 17 GM POWD.PACK PO (08:56)
[2020-04-21] MEDS: DOCUSATE SODIUM 100 MG CAPSULE PO ×2 (08:56→20:03)
[2020-04-21 11:50] LABS: Glucose Point of Care 219 (65-105)
[2020-04-21] MEDS: COLLAGENASE OINT 30 GM TUBE 1 APPLIC TOPICAL (13:00)
[2020-04-21 15:49] VITALS: BP 116/62; PULSE 82; RESP 20; TEMP 37.3; O2SAT 94
[2020-04-21 16:56] LABS: Glucose Point of Care 184 (65-105)
[2020-04-21] MEDS: FLUTICASONE PROPIONATE 0.05% NA SPR 16 GM BTL (*BKC) 1 SPRAY NASAL (20:03)
[2020-04-21] MEDS: INSULIN GLARGINE (*BKC) 100 UNITS/ML 20 UNITS SUB-Q (20:04)
[2020-04-21 20:34] LABS: Glucose Point of Care 226 (65-105)
[2020-04-22 00:15] VITALS: BP 129/65; PULSE 89; RESP 20; TEMP 36.9; O2SAT 95
--- NOTE | 2020-04-22 02:30 | PC.NURSE ---
pt assisted to bed, contact guard assist with walker, pt able to use trapeze bar to pull up in bed and turn to right side, pillows applied for comfort
[2020-04-22] MEDS: BUDESONIDE/FORMOTEROL 80/4.5 MCG 6.9 GM INHALER (*SP) 2 PUFF INHALATION (05:54)
[2020-04-22 07:30] LABS: Glucose Point of Care 172 (65-105)
[2020-04-22 08:00] VITALS: BP 118/66; PULSE 76; RESP 18; TEMP 37; O2SAT 94
[2020-04-22] MEDS: polyethylene glycoL 3350 17 GM POWD.PACK PO (09:38)
[2020-04-22] MEDS: ENOXAPARIN 40 MG/0.4 ML SYRINGE SUB-Q (09:39)
[2020-04-22] MEDS: metFORMIN HCL 500 MG TABLET 1000 MG PO (09:39)
[2020-04-22] MEDS: POTASSIUM CHLORIDE 20 MEQ TABLET 40 MEQ PO (09:40)
[2020-04-22] MEDS: ROSUVASTATIN 10 MG TABLET PO (09:40)
[2020-04-22] MEDS: COLLAGENASE OINT 30 GM TUBE 1 APPLIC TOPICAL (09:40)
[2020-04-22] MEDS: PANTOPRAZOLE 40 MG TABLET PO (09:40)
[2020-04-22] MEDS: DOCUSATE SODIUM 100 MG CAPSULE PO (09:40)
--- NOTE | 2020-04-22 10:22 | P.DS_ITS ---
DS: Admitting Diagnosis Admitting Diagnosis Admitting Diagnosis: Generalized weakness status post Covid positive , GI bleed sepsis DS: Discharge Diagnosis Discharge Diagnosis (1) Lower GI bleeding: Code(s): K92.2 - Gastrointestinal hemorrhage, unspecified Status: Acute Assessment and Plan: * Secondary to Dieulafroy lesion * Clipped with endoscopic 04/04/2020 * Continue Protonix * GI suggest continue caution with aspirin NSAIDs and anticoagulants * Patient received 8 units of PRBCs and 1 FFP and 1 cryo while at [place] * Spoke with Dr. Monzon concerning restarting patient's Xarelto. Dr. Monzon suggested patient discontinue Xarelto due to GI bleed. Patient will discharge with instructions to discontinue Xarelto and follow-up with his primary care physician and or production miner to determine when he should restart or if he should restart Xarelto (2) Paroxysmal atrial fibrillation: Code(s): I48.0 - Paroxysmal atrial fibrillation Status: Acute Assessment and Plan: * Controlled * Anticoagulant contraindicated due to recent GI bleed * Spoke with Dr. Monzon concerning restarting patient's Xarelto. Dr. Monzon suggested patient discontinue Xarelto due to GI bleed. Patient will discharge with instructions to discontinue Xarelto and follow-up with his primary care physician and or production miner to determine when he should restart or if he should restart Xarelto (3) Hypertension: Qualifiers: Hypertension type: unspecified Qualified Code(s): I10 - Essential (primary) hypertension Code(s): I10 - Essential (primary) hypertension Status: Acute Assessment and Plan: * Patient blood stable * Lisinopril 10 mg decreased to lisinopril 5 mg daily * (4) Weakness: Code(s): R53.1 - Weakness Status: Acute Assessment and Plan: ? Exhibit tolerance during physical activity as evidenced by a normal fluctuation of vital signs during physical activity. ? Patient will be ability to perform required activities of daily living. ? Provide appropriate nutrition for healing and strength. ? Use appropriate to prevent falls. ? Continue physical therapy/occupational therapy. (5) Respiratory failure: Qualifiers: Chronicity: acute Respiratory failure complication: unspecified whether with hypoxia or hypercapnia Qualified Code(s): J96.00 - Acute respiratory failure, unspecified whether with hypoxia or hypercapnia Code(s): J96.90 - Respiratory failure, unspecified, unspecified whether with hypoxia or hypercapnia Status: Acute Assessment and Plan: * Resolved * Secondary to Covid * Patient was intubated while at [place] * Will continue albuterol in Symbicort * Tested positive for Covid on 03/18/2020 (6) NURY (acute kidney injury): Code(s): N17.9 - Acute kidney failure, unspecified Status: Acute Assessment and Plan: * Patient baseline creatinine 0.8 04/15 on 1219 1.04 (7) Insulin dependent type 2 diabetes mellitus: Code(s): E11.9 - Type 2 diabetes mellitus without complications; Z79.4 - oysterman (current) use of insulin Status: Acute Assessment and Plan: * Blood sugars less than 300 * Continue home regimen (8) Ulcer: Status: Acute Assessment and Plan: * Ulcer to the right lateral foot and coccyx instructed to clean with dakin daily apply Santyl and Mepilex * Wound care nurse will follow up with patient at home DS: Summary Hospital Course Reason for hospitalization: Generalized weakness status post Covid, GI
--- NOTE | 2020-04-22 10:22 | PM.DS ---
DS: Admitting Diagnosis Admitting Diagnosis Admitting Diagnosis: Generalized weakness status post Covid positive , GI bleed sepsis DS: Discharge Diagnosis Discharge Diagnosis (1) Lower GI bleeding: Code(s): K92.2 - Gastrointestinal hemorrhage, unspecified Status: Acute Assessment and Plan: Secondary to Dieulafroy lesion Clipped with endoscopic 04/04/2020 Continue Protonix GI suggest continue caution with aspirin NSAIDs and anticoagulants Patient received 8 units of PRBCs and 1 FFP and 1 cryo while at [place] Spoke with Dr. Monzon concerning restarting patient's Xarelto. Dr. Monzon suggested patient discontinue Xarelto due to GI bleed. Patient will discharge with instructions to discontinue Xarelto and follow-up with his primary care physician and or executive admin to determine when he should restart or if he should restart Xarelto (2) Paroxysmal atrial fibrillation: Code(s): I48.0 - Paroxysmal atrial fibrillation Status: Acute Assessment and Plan: Controlled Anticoagulant contraindicated due to recent GI bleed Spoke with Dr. Monzon concerning restarting patient's Xarelto. Dr. Monzon suggested patient discontinue Xarelto due to GI bleed. Patient will discharge with instructions to discontinue Xarelto and follow-up with his primary care physician and or executive admin to determine when he should restart or if he should restart Xarelto (3) Hypertension: Qualifiers: Hypertension type: unspecified Qualified Code(s): I10 - Essential (primary) hypertension Code(s): I10 - Essential (primary) hypertension Status: Acute Assessment and Plan: Patient blood stable Lisinopril 10 mg decreased to lisinopril 5 mg daily (4) Weakness: Code(s): R53.1 - Weakness Status: Acute Assessment and Plan: ? Exhibit tolerance during physical activity as evidenced by a normal fluctuation of vital signs during physical activity. ? Patient will be ability to perform required activities of daily living. ? Provide appropriate nutrition for healing and strength. ? Use appropriate to prevent falls. ? Continue physical therapy/occupational therapy. (5) Respiratory failure: Qualifiers: Chronicity: acute Respiratory failure complication: unspecified whether with hypoxia or hypercapnia Qualified Code(s): J96.00 - Acute respiratory failure, unspecified whether with hypoxia or hypercapnia Code(s): J96.90 - Respiratory failure, unspecified, unspecified whether with hypoxia or hypercapnia Status: Acute Assessment and Plan: Resolved Secondary to Covid Patient was intubated while at [place] Will continue albuterol in Symbicort Tested positive for Covid on 03/18/2020 (6) NURY (acute kidney injury): Code(s): N17.9 - Acute kidney failure, unspecified Status: Acute Assessment and Plan: Patient baseline creatinine 0.8 04/15 on 1219 1.04 (7) Insulin dependent type 2 diabetes mellitus: Code(s): E11.9 - Type 2 diabetes mellitus without complications; Z79.4 - continuous churn buttermaker (current) use of insulin Status: Acute Assessment and Plan: Blood sugars less than 300 Continue home regimen (8) Ulcer: Status: Acute Assessment and Plan: Ulcer to the right lateral foot and coccyx instructed to clean with dakin daily apply Santyl and Mepilex Wound care nurse will follow up with patient at home DS: Summary Hospital Course Reason for hospitalization: Generalized weakness status post Covid, GI bleed and sepsis Hospital Course: This is a 69-year-old white male that was admitted to [facility] after being diagnosed with Covid then intubated, then developed a GI bleed and became septic. Patient was placed here in our swing bed for rehabilitation. Patient is anxious to discharge home family members are also advocating for patient to be discharged. It was explained to family members and patient that ph
[2020-04-22 11:40] LABS: Glucose Point of Care 207 (65-105)
--- NOTE | 2020-04-23 02:56 | PM.EVENT ---
Event Note Event Note Event Note: For 04/22/20: I have examined the patient and reviewed the chart. I discussed the patient's care with Valerie Saucedo APN and agree with her assessment and plan.
--- NOTE | 2020-05-07 15:13 | PC.NURSE ---
Spouse states they received and understood the discharge instructions and that patient is doing fine.
== END 2020-04-22 14:05 | disposition home health service (06) | DRG 378 ==
PROVIDERS: Nurse Practitioner; Admitting Provider Emergency Medicine; Visit Provider Emergency Medicine
DX: K92.2 Gastrointestinal hemorrhage, unspecified (principal); I48.20 Chronic atrial fibrillation, unspecified; L97.518 Non-pressure chronic ulcer of other part of right foot with other specified severity; L97.818 Non-pressure chronic ulcer of other part of right lower leg with other specified severity; L89.159 Pressure ulcer of sacral region, unspecified stage; R53.81 Other malaise; I10 Essential (primary) hypertension; E78.5 Hyperlipidemia, unspecified; E11.42 Type 2 diabetes mellitus with diabetic polyneuropathy; K80.20 Calculus of gallbladder without cholecystitis without obstruction; Z86.010 Personal history of colon polyps; Z95.0 Presence of cardiac pacemaker; Z79.4 Long term (current) use of insulin; Z86.19 Personal history of other infectious and parasitic diseases
CPT/HCPCS: 36415; 80053; 85027; 97110; 97162; 97166; 97530; 97535; A9270; J1650; J1815